=== PATIENT | female | born 1940 | race Caucasian/White ===

== ENCOUNTER → 2016-08-04 | Day surgery (SDC) | payer OTHER ==
[2016-07-28 12:06] VITALS: Ht 160 cm; Wt 56.8 kg
[~2016-08-04] VITALS: Ht 160 cm; Wt 56.8 kg
[~2016-08-04] MED LIST: 500ML BSS 0.3ML EPI 1:1000PF IRRIG ONE; ACET-1256 PO; ACETAMINOPHEN 325 MG TAB PO PRN; AMVISC PLUS 0.8ML SYRINGE INT OCU ONE; ASPEC81 PO; ASPI81TA28 PO; ATEN-174 PO; ATOR-24 PO; ATROPINE SULFATE 0.1 MG/ML 5ML SYR IV PRN; BROM0.07 OPR; BSS FLUSH ONE; CLOP1TAB15 PO; ENDOCOAT 0.85ML SYRINGE INT OCU ONE; EpHEDrine SULFATE INJ 50 MG/ML AMP IV PRN; EpINEphrine INJ 1MG/ML AMP 1 MG/ML AMP ONE; LACTATED RINGER'S 1000ML 500 ML IV SCH; LIDOCAINE 4% OP SOLN DROP CHARGE ONE; LIDOCAINE 4% OP SOLN DROP CHARGE OPR SCH; LIDOCAINE HCL 1% MPF 2 ML VIAL ONE; MIDAZOLAM HCL 1 MG/ML 2ML VIAL ONE; MIX: 4ML BSS 1ML EPI 1:1000 PF TOP ONE; MOXIFLOXACIN OPH SOLN PER DROP CHARGE ONE; POVIDONE-IODINE OP SOLN 30 ML BTL ONE; PRED1SUS3 OPR; PROPARACAINE 0.5% OP SOLN PER DROP CHARGE OPR SCH; TOBRAMYCIN/DEXAMETHASONE OPH OINT PER APPLN CHARGE ONE; TRAM-10 PO
[2016-08-04] MEDS: PHENYLEPHRINE HCL 2.5% OP SOLN PER DROP CHARGE OPR SCH ×3 (09:10→09:20)
[2016-08-04] MEDS: TROPICAMIDE 1% OP SOLN PER DROP CHARGE OPR SCH ×3 (09:11→09:21)
[2016-08-04] MEDS: CYCLOPENTOLATE HCL 1% OP SOLN PER DROP CHARGE OPR SCH ×3 (09:12→09:22)
[2016-08-04] MEDS: MOXIFLOXACIN OPH SOLN PER DROP CHARGE OPR SCH ×3 (09:13→09:23)
--- NOTE | 2016-08-04 09:35 | History & Physical Bridge - [place] ---
H&P Re-Evaluation Bridge Note: I have examined the patient, reviewed the History & Physical and in the interval since the performance of the History & Physical I have noted the following changes of clinical significance: No changes noted
--- NOTE | 2016-08-04 11:03 | [facility] Post Operative Brief Note ---
Immediate Operative Summary Operative Date Aug 04, 2016. Pre-Operative Diagnosis Right eye cataract Post-Operative Diagnosis Same as preop Procedure(s) Performed Right Cataract Phacoemulsification With Intraocular Lens Implant Surgeon Dr. Florez Candy Decorator Surgeon(s) None Findings right cataract Specimens None Complication(s) None Disposition
[2016-08-04 11:05] VITALS: TEMP 36.5
--- NOTE | 2016-08-04 11:05 | [facility] Operative Report ---
Operative Report Date of Service Aug 04, 2016. Operative Report Phaco with monofocal IOL DATE OF OPERATION: 08/04/16 PREOPERATIVE DIAGNOSIS: Senile nuclear cataract, right eye POSTOPERATIVE DIAGNOSIS: Senile nuclear cataract, right eye PROCEDURE PERFORMED: Phacoemulsification with intraocular lens implantation, right eye SURGEON: Dr. Christopher Florez ANESTHESIA: Topical with 1% intracameral lidocaine and monitored anesthesia care COMPLICATIONS: None DESCRIPTION OF PROCEDURE: After positively identifying the patient both verbally and by wristband in the preoperative area, the right eye was marked as the operative eye. The patient was then brought back to the operating room by the anesthesia and nursing staff where they were given a drop of Lidocaine and betadine into the operative eye. They were then sterilely prepped and draped in the standard fashion typical for ophthalmic surgery. Steri-strips were placed along the upper eyelids to keep the lashes back, and a lid speculum was placed into the operative eye. At this point, a documented time out was performed with members of the ophthalmology, nursing, and anesthesia staffs all agreeing upon the correct patient, correct location for surgery, correct procedure, and correct type and power of intraocular lens to be implanted. The microscope was then swung into position. First, a paracentesis wound was made using a sideport blade. Then, in sequence, 1% preservative-free lidocaine followed by Endocoat viscoelastic was injected into the anterior chamber. Next , the main incision was made with a keratome blade in triplanar fashion. A sharp cystotome was introduced into the eye and used to create a tear in the anterior capsule, which was directed into a continuous curvilinear capsulorrhexis using Utrata forceps. Hydrodissection was then performed with BSS on a flat-tip cannula. Next, the phacoemulsification handpiece was introduced into the eye and used to remove the nucleus in a eulqdf-[id number]-efytwtl fashion. This was done without complication and then the irrigation-aspiration handpiece was introduced into the eye and used to remove all remaining cortical and epinuclear material. Amvisc was then injected into the anterior chamber as well as into the capsular bag and using the lens injector system, an MX60 22.5 D lens, serial number [id number], and expiration date 05/2018 was injected into the capsular bag and rotated into the correct position. Next, the irrigation- aspiration handpiece was used to remove all remaining Amvisc. BSS was used to hydrate the main wound, and then BSS was injected into the paracentesis site to reach physiologic pressure and then the main wound was checked and found to be watertight. The patient was given drops of Vigamox and Tobradex ointment into the operative eye, and then the surrounding area was cleaned and dried. A clear plastic shield was placed over the eye and the patient was then sat up and taken from the operating room by the anesthesia staff having tolerated the procedure well and suffering no complications. DISPOSITION: The patient was returned to the recovery room in stable condition. I attest to the content of the Intraoperative Record and any orders documented therein. Any exceptions are noted below.
--- NOTE | 2016-08-04 11:06 | Discharge Instructions-SurgCtr ---
Discharge Instructions Visit Reason for Visit: Cataract Right Eye Discharge Discharge Diagnosis / Problem: right cataract Discharge Goals Goal(s): Decrease discomfort, Improve function Activity Recommendations Activity Limitations: as noted below Anesthesia . Post Anesthesia Instructions: If you have had General Anesthesia or IV Sedation: * Do not drive today. * Resume driving when surgeon permits. * Do not make important decisions or sign legal documents today. * Call surgeon for: 1. Temperature elevations greater than 101 degrees F. 2. Uncontrollable pain. 3. Excessive bleeding. 4. Persistent nausea and vomiting. 5. Medication intolerance (nausea, vomiting or rash). * For nausea and vomiting use only clear liquids such as: tea, soda, bouillon until nausea subsides, then gradually increase diet as tolerated. * If you have any concerns or questions, call your surgeon's office. If physician is unavailable and it is an emergency, call 911 or go to the nearest emergency room. . Instructions / Follow-Up Instructions / Follow-Up ACTIVITY RECOMMENDATIONS: * Light activities. * You may walk outside, read, watch television. * You may notice redness on the white part of the eye and some blurry vision - this is normal. MEDICATIONS: Resume previous medications unless instructed otherwise by your surgeon. Start all eye drops at 1 pm today: * Eye drops (today): Prednisone - one drop in operative eye every 2 hours while awake Ofloxacin - one drop in operative eye every 2 hours while awake Bromfenac - one drop in operative eye daily SPECIAL CARE INSTRUCTIONS: * Tape plastic shield over eye to sleep at night. Call your doctor at with any concerns or problems. FOLLOW UP VISIT: Follow-up with Dr Florez at [place] office as scheduled. Diet Recommendations Home Diet: no limitations Procedures Procedures Performed: Right Cataract Phacoemulsification With Intraocular Lens Implant Pending Studies Studies pending at discharge: no Medical Emergencies . Who to Call and When: Medical Emergencies: If at any time you feel your situation is an emergency, please call 911 immediately. . Non-Emergent Contact Non-Emergency issues call your: Surgeon . . "Provider Documentation" section prepared by Christopher Florez.
--- NOTE | 2016-08-04 11:10 | Anesthesia Progress Nt - [facility] ---
Anesthesia Post Op Note Date & Time Aug 04, 2016 at 11:10 Vital Signs Pain Intensity: 0 Vital Signs Past 12 Hours Date Time Temp Pulse Resp B/P Pulse Ox O2 Delivery O2 Flow Rate FiO2 08/04/16 09:13 36.4 59 18 133/71 93 Room Air Notes Mental Status: alert / awake / arousable, participated in evaluation Pt Amnestic to Procedure: Yes Nausea / Vomiting: adequately controlled Pain: adequately controlled Airway Patency, RR, SpO2: stable & adequate BP & HR: stable & adequate Hydration State: stable & adequate Anesthetic Complications: no major complications apparent
[2016-08-04 11:30] VITALS: BP 142/82; PULSE 66; O2SAT 93
== END | disposition home or self-care (01) ==
LOC: X.SURG 08:26
PROVIDERS: ATTEND Ophthalmology
DX: H25.11 Age-related nuclear cataract, right eye (principal); I51.9 Heart disease, unspecified; E78.00 Pure hypercholesterolemia, unspecified; Z95.0 Presence of cardiac pacemaker

== ENCOUNTER 2016-08-07 12:26 | Emergency (ER) | payer OTHER ==
[~2016-08-07] VITALS: Ht 160 cm; Wt 60.4 kg
[~2016-08-07 12:26] MED LIST changes: -500ML BSS 0.3ML EPI 1:1000PF IRRIG ONE; -ACETAMINOPHEN 325 MG TAB PO PRN; -AMVISC PLUS 0.8ML SYRINGE INT OCU ONE; -ASPEC81 PO; -ATROPINE SULFATE 0.1 MG/ML 5ML SYR IV PRN; -BROM0.07 OPR; -BSS FLUSH ONE; -ENDOCOAT 0.85ML SYRINGE INT OCU ONE; -EpHEDrine SULFATE INJ 50 MG/ML AMP IV PRN; -EpINEphrine INJ 1MG/ML AMP 1 MG/ML AMP ONE; -LACTATED RINGER'S 1000ML 500 ML IV SCH; -LIDOCAINE 4% OP SOLN DROP CHARGE ONE; -LIDOCAINE 4% OP SOLN DROP CHARGE OPR SCH; -LIDOCAINE HCL 1% MPF 2 ML VIAL ONE; -MIDAZOLAM HCL 1 MG/ML 2ML VIAL ONE; -MIX: 4ML BSS 1ML EPI 1:1000 PF TOP ONE; -MOXIFLOXACIN OPH SOLN PER DROP CHARGE ONE; -POVIDONE-IODINE OP SOLN 30 ML BTL ONE; -PRED1SUS3 OPR; -PROPARACAINE 0.5% OP SOLN PER DROP CHARGE OPR SCH; -TOBRAMYCIN/DEXAMETHASONE OPH OINT PER APPLN CHARGE ONE
[2016-08-07 12:32] VITALS: TEMP 36.9; Ht 160 cm; Wt 60.4 kg
[2016-08-07] MEDS ORDERED: SILVER NITR/POTASSIUM NITRATE 10 APPLICATOR PACK ONE (13:18)
--- NOTE | 2016-08-07 13:42 | EMERGENCY ROOM VISIT NOTE ---
ED Visit Note First contact with patient: 13:04 Patient was seen by our PA/IMPROVEMENT AUDITOR. I was involved in the patient's care and did evaluate the patient myself. I was involved in the care throughout the ER stay. The patient presents with epistaxis, the bleeding has been cauterized, the patient is being discharged home.
[2016-08-07 13:45] VITALS: BP 181/77; PULSE 62; O2SAT 92
--- NOTE | 2016-08-09 18:26 | EMERGENCY ROOM VISIT NOTE ---
ED Visit Note First contact with patient: 13:04 CHIEF COMPLAINT: Nosebleed HISTORY OF PRESENT ILLNESS: This 76-year-old white female patient developed sudden onset of a nosebleed about 1 hour ago. The bleeding would not stop with pressure. She became concerned and called her eye surgeon. He recommended she come to the ED. She did call the ambulance and came to the ED. She states the bleeding stopped just prior to arrival at the ED. There was no trauma to the nose and no recent upper respiratory infection. The patient is not on Coumadin but is on Plavix. No difficulty breathing, no cough or sore throat. She states she did have a intermittent headache yesterday, but this has resolved currently. She arrives by BLS. REVIEW OF SYSTEMS: Throat: No sore throat, dysphagia, or hoarseness. Neurological: No headache, new changes in mental status, vertigo, focal weakness, numbness. Cardiac: No chest pain, diaphoresis, dyspnea on exertion, orthopnea, pedal edema, or palpitations. Respiratory: No cough, change in sputum, wheezes, hemoptysis, shortness of breath, or stridor. General: No fever or chills, fatigue, loss of appetite, or significant recent weight gain or loss. PMH: Significant for heart disease, osteoarthritis and elevated cholesterol Previous surgeries: Eye surgery, bilateral leg vein stripping, heart bypass surgery Family history: Significant for heart disease. Parents are . SOCIAL HISTORY: Patient lives at home alone. No tobacco use, no EtOH use. Retired. Current medications: Reviewed and filed in patient's chart Allergies: Amoxil, cefadroxil, ranitidine, statins PHYSICAL EXAM: Vital Signs: Reviewed Nurse's notes. Afebrile. General appearance: The patient is sitting upright in no acute distress. She is continuously wiping her nose. The patient is alert, oriented, coherent, and cooperative. There is no tachypnea or dyspnea. Skin: Warm and dry with fair turgor. No rashes or lesions. No ecchymosis or erythema. The patient is not diaphoretic. No abrasions. HEENT: Normocephalic atraumatic. Eyes PERRLA, EOMI. No conjunctiva or scleral injection. Nares patent bilaterally without turbinate enlargement. No significant drainage. Oropharynx without erythema or exudate. Uvula midline, oral mucosa moist. No lesions present. Dentures are noted. Exam of the nostrils reveals punctate bleeding on the right septum. No bleeding on the left septum. Heart: Heart RRR. No MGR. Peripheral pulses are 2+. Lungs: Lungs are clear to auscultation. No crackles rhonchi or wheezing. Good air movement. The patient is able to take a deep breath. EMERGENCY DEPARTMENT COURSE: Patient was educated regarding today's findings. Conservative care measures were discussed. Option of watchful waiting, Afrin nasal spray, and silver nitrate cautery were discussed at length. She elected to proceed with cautery. A silver nitrate stick was used to cauterize the single vessel that was bleeding. This was successful in stopping. Patient tolerated this well. Nares was coated in triple antibiotic ointment. DIAGNOSIS: Epistaxis right nares DISCHARGE INSTRUCTIONS & TREATMENT: Patient was discharged back to home. She wIll continue applying Triple Antibiotic ointment to the nose 2 times a day for the next several days. She was shown how to do this. Firm pressure on the nose for 15 minutes if bleeding recurs. If you are unable to get it stopped after that, return to the emergency department for further exam and treatment. Blow the nose very gently if at all over the next 2 days. Don't put any objects into the nose. Patient was seen in conjunction with Dr. Mckeon, who also evaluated the patient and concurred with today's diagnosis and treatment plan. Problem List Medical Problems: (1) Hypertension Status: Chronic Surgical Problems: (1) H/O heart bypass surgery Status: Resolved Current/Historical Medications Scheduled Atenolol (Tenormin), 50 MG PO QAM Atorvastatin (Lipitor), 40 MG PO QAM Clopidogrel (Plavix), 75 MG PO QAM Scheduled PRN Acetaminophen (Tylenol), 500 MG PO Q6 PRN for Pain Tramadol (Ultram), 50-100 MG PO Q6 PRN for Pain Allergies Coded Allergies: Amoxicillin (Verified Allergy, Unknown, SEVERE DIARRHEA, 08/07/16) Ranitidine (Verified Allergy, Unknown, rash, 08/07/16) Cefadroxil (Verified Adverse Reaction, Intermediate, Nausea, 08/07/16) Statins (Verified Adverse Reaction, Intermediate, DIARRHEA, 08/07/16) WHEN HIGH DOSES USED CAN TOLERATE LOW DOSES Vital Signs Date Time Temp Pulse Resp B/P Pulse Ox O2 Delivery O2 Flow Rate FiO2 08/07/16 13:45 62 18 181/77 92 08/07/16 12:32 36.9 60 18 147/46 93 Room Air Departure Information Impression Primary Impression: Acute anterior epistaxis Dispostion Home / Self-Care Condition GOOD Forms WORK / SCHOOL INSTRUCTIONS, HOME CARE DOCUMENTATION FORM, TYLENOL USE, IMPORTANT VISIT INFORMATION Patient Instructions Nosebleeds - [facility], [facility] Additional Instructions Coat the inside of the right nostril with antibiotic ointment 2 times a day for the next 3 days Avoid blowing your nose Avoid sticking anything into the nostril Follow-up with your PCP as needed Tylenol every 6 hours as needed for discomfort Return to the ED for any other concerns Apply a nasal clip for 10 minutes if any bleeding should recur
[2016-08-12] MEDS ORDERED: BROM0.07 OPR (10:01)
[2016-08-12] MEDS ORDERED: PRED1SUS3 OPR (10:01)
[2016-10-28] MEDS ORDERED: ASPEC81 PO (09:12)
== END 2016-08-07 13:46 | disposition home or self-care (01) ==
LOC: EDBD 12:26 → C.EDB 12:28
DX: R04.0 Epistaxis (principal); I10 Essential (primary) hypertension; E78.00 Pure hypercholesterolemia, unspecified; Z79.01 Long term (current) use of anticoagulants; M19.90 Unspecified osteoarthritis, unspecified site; Z95.1 Presence of aortocoronary bypass graft; Z79.899 Other long term (current) drug therapy

== ENCOUNTER → 2016-08-18 | Day surgery (SDC) | payer OTHER ==
[2016-08-12 10:01] VITALS: Ht 160 cm; Wt 56.8 kg
[~2016-08-18] VITALS: Ht 160 cm; Wt 56.8 kg
[~2016-08-18] MED LIST changes: +500ML BSS 0.3ML EPI 1:1000PF IRRIG ONE; +ACETAMINOPHEN 325 MG TAB PO PRN; +AMVISC PLUS 0.8ML SYRINGE INT OCU ONE; +ASPEC81 PO; -ASPI81TA28 PO; +ATROPINE SULFATE 0.1 MG/ML 5ML SYR IV PRN; +BROM0.07 OPR; +BSS FLUSH ONE; +ENDOCOAT 0.85ML SYRINGE INT OCU ONE; +EpHEDrine SULFATE INJ 50 MG/ML AMP IV PRN; +EpINEphrine INJ 1MG/ML AMP 1 MG/ML AMP ONE; +LACTATED RINGER'S 1000ML 500 ML IV SCH; +LIDOCAINE 4% OP SOLN DROP CHARGE ONE; +LIDOCAINE 4% OP SOLN DROP CHARGE OPL SCH; +LIDOCAINE HCL 1% MPF 2 ML VIAL ONE; +MIDAZOLAM HCL 1 MG/ML 2ML VIAL ONE; +MIX: 4ML BSS 1ML EPI 1:1000 PF TOP ONE; +MOXIFLOXACIN OPH SOLN PER DROP CHARGE ONE; +POVIDONE-IODINE OP SOLN 30 ML BTL ONE; +PRED1SUS3 OPR; +PROPARACAINE 0.5% OP SOLN PER DROP CHARGE OPL SCH; +TOBRAMYCIN/DEXAMETHASONE OPH OINT PER APPLN CHARGE ONE
[2016-08-18] MEDS: PHENYLEPHRINE HCL 2.5% OP SOLN PER DROP CHARGE OPL SCH ×3 (10:08→10:18)
[2016-08-18] MEDS: TROPICAMIDE 1% OP SOLN PER DROP CHARGE OPL SCH ×3 (10:09→10:19)
[2016-08-18] MEDS: CYCLOPENTOLATE HCL 1% OP SOLN PER DROP CHARGE OPL SCH ×3 (10:10→10:20)
[2016-08-18] MEDS: MOXIFLOXACIN OPH SOLN PER DROP CHARGE OPL SCH ×3 (10:11→10:21)
--- NOTE | 2016-08-18 11:54 | [facility] Post Operative Brief Note ---
Immediate Operative Summary Operative Date Aug 18, 2016. Pre-Operative Diagnosis Cataract Left Eye Post-Operative Diagnosis Same Procedure(s) Performed Left Cataract Phacoemulsification With Intraocular Lens Implant Surgeon Dr. Florez Substation Technician Surgeon(s) None Estimated Blood Loss 0 Findings left cataract Specimens None Complication(s) None Disposition
--- NOTE | 2016-08-18 11:55 | [facility] Operative Report ---
Operative Report Date of Service Aug 18, 2016. Operative Report Phaco with monofocal IOL DATE OF OPERATION: 08/18/16 PREOPERATIVE DIAGNOSIS: Senile nuclear cataract, left eye POSTOPERATIVE DIAGNOSIS: Senile nuclear cataract, left eye PROCEDURE PERFORMED: Phacoemulsification with intraocular lens implantation, left eye SURGEON: Dr. Christopher Florez ANESTHESIA: Topical with 1% intracameral lidocaine and monitored anesthesia care COMPLICATIONS: None DESCRIPTION OF PROCEDURE: After positively identifying the patient both verbally and by wristband in the preoperative area, the left eye was marked as the operative eye. The patient was then brought back to the operating room by the anesthesia and nursing staff where they were given a drop of Lidocaine and betadine into the operative eye. They were then sterilely prepped and draped in the standard fashion typical for ophthalmic surgery. Steri-strips were placed along the upper eyelids to keep the lashes back, and a lid speculum was placed into the operative eye. At this point, a documented time out was performed with members of the ophthalmology, nursing, and anesthesia staffs all agreeing upon the correct patient, correct location for surgery, correct procedure, and correct type and power of intraocular lens to be implanted. The microscope was then swung into position. First, a paracentesis wound was made using a sideport blade. Then, in sequence, 1% preservative-free lidocaine followed by Endocoat viscoelastic was injected into the anterior chamber. Next , the main incision was made with a keratome blade in triplanar fashion. A sharp cystotome was introduced into the eye and used to create a tear in the anterior capsule, which was directed into a continuous curvilinear capsulorrhexis using Utrata forceps. Hydrodissection was then performed with BSS on a flat-tip cannula. Next, the phacoemulsification handpiece was introduced into the eye and used to remove the nucleus in a [id number]-ikwkuxb fashion. This was done without complication and then the irrigation-aspiration handpiece was introduced into the eye and used to remove all remaining cortical and epinuclear material. Amvisc was then injected into the anterior chamber as well as into the capsular bag and using the lens injector system, an MX60 22.5 D lens, serial number [id number], and expiration date 02/2019 was injected into the capsular bag and rotated into the correct position. Next, the irrigation- aspiration handpiece was used to remove all remaining Amvisc. BSS was used to hydrate the main wound, and then BSS was injected into the paracentesis site to reach physiologic pressure and then the main wound was checked and found to be watertight. The patient was given drops of Vigamox and Tobradex ointment into the operative eye, and then the surrounding area was cleaned and dried. A clear plastic shield was placed over the eye and the patient was then sat up and taken from the operating room by the anesthesia staff having tolerated the procedure well and suffering no complications. DISPOSITION: The patient was returned to the recovery room in stable condition. I attest to the content of the Intraoperative Record and any orders documented therein. Any exceptions are noted below.
[2016-08-18 11:56] VITALS: TEMP 36.4
--- NOTE | 2016-08-18 11:56 | Discharge Instructions-SurgCtr ---
Discharge Instructions Date of Service Aug 18, 2016. Visit Reason for Visit: Cataract Left Eye Discharge Discharge Diagnosis / Problem: left cataract Discharge Goals Goal(s): Decrease discomfort, Improve function Activity Recommendations Activity Limitations: as noted below Anesthesia . Post Anesthesia Instructions: If you have had General Anesthesia or IV Sedation: * Do not drive today. * Resume driving when surgeon permits. * Do not make important decisions or sign legal documents today. * Call surgeon for: 1. Temperature elevations greater than 101 degrees F. 2. Uncontrollable pain. 3. Excessive bleeding. 4. Persistent nausea and vomiting. 5. Medication intolerance (nausea, vomiting or rash). * For nausea and vomiting use only clear liquids such as: tea, soda, bouillon until nausea subsides, then gradually increase diet as tolerated. * If you have any concerns or questions, call your surgeon's office. If physician is unavailable and it is an emergency, call 911 or go to the nearest emergency room. . Instructions / Follow-Up Instructions / Follow-Up ACTIVITY RECOMMENDATIONS: * Light activities. * You may walk outside, read, watch television. * You may notice redness on the white part of the eye and some blurry vision - this is normal. MEDICATIONS: Resume previous medications unless instructed otherwise by your surgeon. Start all eye drops at 2 pm today: * Eye drops (today): Prednisone - one drop in operative eye every 2 hours while awake Ofloxacin - one drop in operative eye every 2 hours while awake Bromfenac - one drop in operative eye daily SPECIAL CARE INSTRUCTIONS: * Tape plastic shield over eye to sleep at night. Call your doctor at with any concerns or problems. FOLLOW UP VISIT: Follow-up with Dr Florez at [facility] as scheduled. Diet Recommendations Home Diet: no limitations Procedures Procedures Performed: Left Cataract Phacoemulsification With Intraocular Lens Implant Pending Studies Studies pending at discharge: no Medical Emergencies . Who to Call and When: Medical Emergencies: If at any time you feel your situation is an emergency, please call 911 immediately. . Non-Emergent Contact Non-Emergency issues call your: Surgeon . . "Provider Documentation" section prepared by Christopher Florez.
[2016-08-18 12:18] VITALS: BP 131/70; PULSE 60; O2SAT 94
--- NOTE | 2016-08-18 12:27 | Anesthesia Progress Nt - [facility] ---
Anesthesia Post Op Note Date & Time Aug 18, 2016 at 12:27 Vital Signs Pain Intensity: 0 Vital Signs Past 12 Hours Date Time Temp Pulse Resp B/P Pulse Ox O2 Delivery O2 Flow Rate FiO2 08/18/16 12:18 60 16 131/70 94 Room Air 08/18/16 11:56 36.4 60 12 132/72 95 Room Air 08/18/16 09:56 36.4 59 18 161/78 94 Room Air Notes Mental Status: alert / awake / arousable, participated in evaluation Pt Amnestic to Procedure: Yes Nausea / Vomiting: adequately controlled Pain: adequately controlled Airway Patency, RR, SpO2: stable & adequate BP & HR: stable & adequate Hydration State: stable & adequate Anesthetic Complications: no major complications apparent
== END | disposition home or self-care (01) ==
LOC: X.SURG 09:17
PROVIDERS: ATTEND Ophthalmology
DX: H25.12 Age-related nuclear cataract, left eye (principal); E78.00 Pure hypercholesterolemia, unspecified; I10 Essential (primary) hypertension; E03.9 Hypothyroidism, unspecified; E11.9 Type 2 diabetes mellitus without complications; Z95.0 Presence of cardiac pacemaker

== ENCOUNTER 2016-10-27 07:54 | Observation (INO) | payer OTHER ==
[~2016-10-27] VITALS: Ht 160 cm; Wt 58.0 kg
[2016-10-27] VITALS (15 sets, daily range): BP systolic 95–160; BP diastolic 55–84; PULSE 59–63; TEMP 36.2–37; O2SAT 91–94; Ht 160 cm; Wt 58.0 kg
[~2016-10-27 07:54] MED LIST changes: -500ML BSS 0.3ML EPI 1:1000PF IRRIG ONE; -ACETAMINOPHEN 325 MG TAB PO PRN; -AMVISC PLUS 0.8ML SYRINGE INT OCU ONE; -ASPEC81 PO; -ATROPINE SULFATE 0.1 MG/ML 5ML SYR IV PRN; -BSS FLUSH ONE; -ENDOCOAT 0.85ML SYRINGE INT OCU ONE; -EpHEDrine SULFATE INJ 50 MG/ML AMP IV PRN; -EpINEphrine INJ 1MG/ML AMP 1 MG/ML AMP ONE; -LACTATED RINGER'S 1000ML 500 ML IV SCH; -LIDOCAINE 4% OP SOLN DROP CHARGE ONE; -LIDOCAINE 4% OP SOLN DROP CHARGE OPL SCH; -LIDOCAINE HCL 1% MPF 2 ML VIAL ONE; -MIDAZOLAM HCL 1 MG/ML 2ML VIAL ONE; -MIX: 4ML BSS 1ML EPI 1:1000 PF TOP ONE; -MOXIFLOXACIN OPH SOLN PER DROP CHARGE ONE; -POVIDONE-IODINE OP SOLN 30 ML BTL ONE; -PROPARACAINE 0.5% OP SOLN PER DROP CHARGE OPL SCH; +SODIUM CHLORIDE 0.9% 1000ML IV SCH; -TOBRAMYCIN/DEXAMETHASONE OPH OINT PER APPLN CHARGE ONE
--- NOTE | 2016-10-27 08:21 | Procedure Note ---
Pre-Mod Sedation Assessment General Date of Moderate Sedation: October 27, 2016. Review Cardiovascular: regular rate, rhythm, no edema Abdomen: normal bowel sounds, non tender Lungs: chest non-tender, lungs clear Airway Class: II Pre-Sedation Airway Assessment Oral Cavity: Dental Abnormalities Able to Visualize Vocal Cords: No Short Thick Neck: No Hx of Sleep Apnea: No Smoking Status: Former Smoker Mallampati Classification: Class II ASA Classification: Class III Procedure Planning Contraindications-for Mod Sed: None Yes Notes The planned sedation has been discussed with the patient and consent obtained. I have identified the patient, determined the appropriateness of sedation and have assessed the patient immediately prior to the procedure. All medicine(s) and interventions are by my order.
[2016-10-27] MEDS ORDERED: FENTANYL CITRATE INJ 50 MCG/1 ML 2 ML VIAL ONE (10:22)
[2016-10-27] MEDS ORDERED: MIDAZOLAM HCL 1 MG/ML 2ML VIAL ONE ×2 (10:23→12:07)
[2016-10-27] MEDS ORDERED: HEPARIN SOD (PORCINE) 1000 UNIT/ML 10 ML VIAL ONE (10:30)
[2016-10-27] MEDS ORDERED: NITROGLYCERIN/D5W 100MCG/ML 20ML SYR ONE (10:34)
--- NOTE | 2016-10-27 10:49 | History and Physical ---
History & Physical Date October 27, 2016. Chief Complaint PAD, Claudication History of Present Illness Mrs. Lagos is a very pleasant 76-year-old woman with a history of coronary artery disease status post prior CABG in 1984, with redo in 2006 (most recent vein grafts to OM, LAD, RCA), sick sinus syndrome status post permanent pacer, hypertension, dyslipidemia and peripheral artery disease status post prior subclavian artery stenting and most recently endovascular intervention to her left and right SFA for intermittent claudication by Dr. Blood last year who returns today due to progressive, recurrent claudication. Patient most recently underwent intervention in October (100% occluded proximal SFA treated with and November of last year. Following intervention she had significant improvement in her exercise tolerance and resolution of her claudication symptoms. However, in April, May started having recurrence of pain initially in her left leg. Seen by Dr. Blood in May and due to recurrent symptoms repeat peripheral angiogram was recommended. Procedure was not able to be completed as patient was dealing with multiple other medical issues including a staph infection, recurrent issues with colitis and most recently bilateral cataract surgery. Since that time she states that her claudication symptoms have gradually progressed. She states that often will attempt to walk [address] stop from her apartment and she has to stop twice due to severe limiting pain in her calves bilaterally. Pain is now severe on both sides. Denies any significant lower extremity wounds or ulcerations. Denies any pain at rest. Recent arterial duplex shows recurrent mid to distal SFA disease. Past Medical/Surgical History Medical Problems: (1) Hypertension (2) PAD (peripheral artery disease) (3) PAD (peripheral artery disease) Surgical Problems: (1) H/O heart bypass surgery Additional History Hepatic Disease: No Endocrine Disorder: Yes Kidney Disease: No Hypertension: Yes Heart Disease: Yes Bleeding Tendencies: No Allergies Coded Allergies: Ranitidine (Verified Allergy, Intermediate, rash, 10/27/16) Amoxicillin (Verified Adverse Reaction, Intermediate, SEVERE DIARRHEA, ) Cefadroxil (Verified Adverse Reaction, Mild, Nausea, 10/27/16) Statins (Verified Adverse Reaction, Mild, DIARRHEA, 10/27/16) WHEN HIGH DOSES USED CAN TOLERATE LOW DOSES Home Medications Scheduled Atenolol (Tenormin), 50 MG PO QAM Atorvastatin (Lipitor), 40 MG PO QAM Clopidogrel (Plavix), 75 MG PO QAM Scheduled PRN Acetaminophen (Tylenol), 500 MG PO Q6 PRN for Pain Tramadol (Ultram), 50-100 MG PO Q6 PRN for Pain Physical Examination Skin: warm/dry Neck: supple Respiratory/Chest: lungs clear, normal breath sounds Cardiovascular: regular rate, rhythm, no edema Abdomen / GI: normal bowel sounds, non tender Extremities: normal inspection, + pertinent finding (2+ femoral pulses) Neurologic/Psych: no motor/sensory deficits ASA Classification: ASA Class II Plan of Treatment Proceed with planned bilateral lower extremity angiogram.
[2016-10-27] MEDS ORDERED: MIDAZOLAM HCL 1 MG/ML 2ML VIAL IV ONE ×3 (11:18→12:09)
[2016-10-27] MEDS ORDERED: FENTANYL CITRATE INJ 50 MCG/1 ML 2 ML VIAL IV ONE ×3 (11:19→12:06)
[2016-10-27] MEDS ORDERED: LIDOCAINE HCL 1% 20 ML VIAL SQ ONE (11:28)
[2016-10-27] MEDS ORDERED: HEPARIN SOD (PORCINE) 1000 UNIT/ML 10 ML VIAL IV ONE (12:31)
[2016-10-27] MEDS ORDERED: IODIXANOL (VISIPAQUE) 270 MG/ML 150ML XX ONE (13:03)
[2016-10-27] MEDS ORDERED: CLOPIDOGREL BISULFATE 300 MG TAB PO STA (13:15)
[2016-10-27] MEDS ORDERED: SODIUM CHLORIDE 0.9% 1000ML 1,000 ML IV SCH (13:15)
[2016-10-27] MEDS ORDERED: ONDANSETRON INJ 2 MG/ML 2 ML VIAL IV PRN (13:15)
[2016-10-27] MEDS ORDERED: TRAMADOL HCL 50 MG TAB PO PRN (13:15)
--- NOTE | 2016-10-27 13:21 | Procedure Note ---
Post-Mod Sedation Assessment General Date of Moderate Sedation October 27, 2016. Vital Signs: Vital Signs Past 12 Hours Date Time Temp Pulse Resp B/P Pulse Ox O2 Delivery O2 Flow Rate FiO2 10/27/16 10:42 36.6 60 20 128/68 94 Room Air 10/27/16 08:07 36.6 60 20 128/68 94 Room Air Review - Discharge Criteria Vital Signs Stable: Yes Alert/Oriented/Conversant: Yes Returned to Baseline Mental St: Yes Nausea Absent/Minimal: Yes Pain/Discomfort/Absent/Minimal: Yes Normal/Baseline Respirations: Yes Active Bleeding?: No Pt Received D/C Instructions: N/A Prescriptions Given: None Specific Proced. D/C Criteria Distal Pulses Present (Cardiac: Yes Groin site assessed-Card Cath: N/A Voided Prior To Discharge: N/A Discharged Patients Adult Escort/Transportation: Yes
--- NOTE | 2016-10-27 13:54 | [facility] Operative Report ---
Operative Report Operative Date October 27, 2016. Pre-Operative Diagnosis PAD, Claudication Post-Operative Diagnosis PAD Procedure(s) Performed Bilateral Lower extremity Angiogram Selective left SFA/below the knee angiogram CODING COMPLIANCE MANAGER anterior tibial artery CODING COMPLIANCE MANAGER with drug-eluting (Lutonix balloon) to distal SFA Mynx right STUDENT SERVICES COUNSELOR closure Surgeon Dr. Mac Paediatric Surgeon Surgeon(s) None Estimated Blood Loss 30 Findings Aorta - mild infrarenal aneurysm (3.1 cm) above bifurcation Left lower extremity: Common iliac - Mild to moderate disease (on sheath pull back gradient ~20 mmHg) External iliac - Minimal disease Internal iliac - Minimal disease STUDENT SERVICES COUNSELOR - Patent Profunda - Minimal disease SFA - Mild diffuse disease proximally Distal SFA - Sequential, mildly calcified focal 70% lesions Popliteal - minimal disease TPT - minimal disease AT - mildly calcified, sequential 90%, 80% lesions in mid segment PT - occluded proximally with no real reconstitution. Peroneal - mild diffuse disease Right lower extremity: Common iliac - Minimal disease External iliac - Heavily calcified, mild-moderate disease (no significant gradient on pull back) Internal iliac - Minimal disease STUDENT SERVICES COUNSELOR - Minimal disease, high bifurcation, OK for closure device placement Profunda - Minimal disease SFA - Mild diffuse atherosclerosis (up to 30-40% stenosis) Popliteal - mild disease TPT - minimal disease AT - moderate diffuse disease PT - occluded in mid segment with no real reconstitution Peroneal - minimal disease US guided access right STUDENT SERVICES COUNSELOR. rim catheter, glideadvantage wire 45 cm 6Fr destination sheath to proximal SFA glideadvantage to popliteal artery CODING COMPLIANCE MANAGER of distal SFA with 4.0 x 100 balloon. Wire exchanged for 0.14 command wire placed into distal AT CODING COMPLIANCE MANAGER of AT with 2.5 x 160 balloon CODING COMPLIANCE MANAGER of distal SFA with 5 x 150 Lutonix drug-eluting balloon with good angiographic result Post dilation noted to have filling defect suspected to be clot distal to site of inflation. Re-bolused with heparin, aspiration thrombectomy performed with 100 cm glidecatheter with removal of clot fragments. Final angiogram confirmed patency with no distal embolization and 2 vessel distal runoff to the foot. Mynx closure device with successful hemostasis. Summary: 1. Moderate to severe sequential focal lesions involving left distal SFA 2. Two vessel distal left lower extremity runoff with previously occluded CODING COMPLIANCE MANAGER and severe AT disease 3. Mild to moderate ostial left common iliac disease with borderline gradient on catheter pullback 4. Mild right lower extremity inflow/SFA disease. 2 vessel distal runoff. 5. Small infrarenal AAA (3.1 cm) 6. Successful CODING COMPLIANCE MANAGER of left distal SFA with Lutonix drug-eluting balloon 7. Successful CODING COMPLIANCE MANAGER of left mid SALVADOR 8. Successful aspiration thrombectomy of distal SFA thrombus post intervention Recommendations: Will admit for overnight observation with co-morbidities and SFA thrombus Reload with plavix 300 mg on floor Continue DAPT, statin and beta-epi No evidence of significant right lower extremity arterial disease to be causing presenting pain. If continued left lower extremity claudication will consider further evaluation/ intervention of left common iliac Routine surveillance for infrarenal AAA Specimens None Drains None Anesthesia Moderate Complication(s) None Disposition PCU I attest to the content of the Intraoperative Record and any orders documented therein. Any exceptions are noted below.
[2016-10-27] MEDS ORDERED: IV FLUIDS COMPLETED PRN (16:45)
[2016-10-27] MEDS ORDERED: CLOPIDOGREL BISULFATE 300 MG TAB PO ONE (18:34)
[2016-10-27] MEDS: ACETAMINOPHEN 325 MG TAB PO PRN (20:52)
[2016-10-28 03:30] VITALS: BP 100/50; PULSE 61; TEMP 36.9; O2SAT 92
[2016-10-28 06:25] LABS: HEMATOCRIT 38.8 % (37-47); MEAN CELL VOLUME 95.8 fL (80-100); MEAN CORPUSCULAR HEMOGLOBIN 30.6 pg (25-34); MEAN PLATELET VOLUME 9.8 fL (7.4-10.4); PLATELET COUNT 135 K/uL (130-400); RED BLOOD COUNT 4.05 M/uL (4.2-5.4); WHITE BLOOD COUNT 5.13 K/uL (4.8-10.8)
[2016-10-28 06:57] LABS: BUN/CREATININE RATIO 16.8 (10-20); CALCIUM 8.6 mg/dl (8.5-10.1); CREATININE 0.76 mg/dl (0.60-1.20); POTASSIUM 4.3 mmol/L (3.5-5.1)
[2016-10-28 07:10] VITALS: BP 126/57; PULSE 60; TEMP 36.5; O2SAT 94
[2016-10-28 08:00] VITALS: O2SAT 94
[2016-10-28] MEDS ORDERED: CLOPIDOGREL BISULFATE 75 MG TAB PO SCH (09:00)
[2016-10-28] MEDS ORDERED: ATORVASTATIN 40 MG TAB PO SCH (09:00)
[2016-10-28] MEDS ORDERED: ASPIRIN 81 MG ECTAB PO SCH (09:00)
[2016-10-28] MEDS: ACETAMINOPHEN 325 MG TAB PO PRN (09:03)
[2016-10-28] MEDS ORDERED: ASPEC81 PO (09:12)
--- NOTE | 2016-10-28 09:14 | Discharge Instructions ---
Discharge Instructions Procedure Procedure Date: October 28, 2016. Reason for Visit: Peripheral Vascular Disease. Discharge Discharge Date: October 28, 2016. Discharge Diagnosis: Peripheral artery disease Last Recorded Wt (Kilograms): 58.000 Anesthesia Post Anesthesia Instructions: If you have had General Anesthesia or IV Sedation: * Do not drive today. * Resume driving when surgeon permits. * Do not make important decisions or sign legal documents today. * Call surgeon for: 1. Temperature elevations greater than 101 degrees F. 2. Uncontrollable pain. 3. Excessive bleeding. 4. Persistent nausea and vomiting. 5. Medication intolerance (nausea, vomiting or rash). * For nausea and vomiting use only clear liquids such as: tea, soda, bouillon until nausea subsides, then gradually increase diet as tolerated. * If you have any concerns or questions, call your surgeon's office. If physician is unavailable and it is an emergency, call 911 or go to the nearest emergency room. Instructions Activity Recommendations: limitations as noted below Recommended Home Diet: resume previous diet Allergies: Coded Allergies: Ranitidine (Verified Allergy, Intermediate, rash, 10/27/16) Amoxicillin (Verified Adverse Reaction, Intermediate, SEVERE DIARRHEA, ) Cefadroxil (Verified Adverse Reaction, Mild, Nausea, 10/27/16) Statins (Verified Adverse Reaction, Mild, DIARRHEA, 10/27/16) WHEN HIGH DOSES USED CAN TOLERATE LOW DOSES Follow Up Additional Instructions: ACTIVITY RECOMMENDATIONS: It is common to feel weak and fatigue for a few days. * Do not drive or operate any motorized equipment for the next three days. * Limit stair usage (2 or 3 trips a day only) for the next three days. * Do not lift anything heavier than 10 pounds for the next three days. * Do not engage in vigorous exercise or any sports for the next five days. * You may shower the day after your procedure, but do not immerse the area for three days. Cleanse the site gently with soap and water. SPECIAL CARE INSTRUCTIONS: * You may replace the pressure dressing or band-aid the morning after the procedure. * After your procedure, it is normal to have a small bruise or small lump at the site. Examine your site daily for any change in the bruise or lump, redness, swelling, drainage or numbness. Notify your doctor if any change. BLEEDING: * If there is a small amount of bleeding at the site, lie down and apply firm pressure with a clean cloth for ten minutes. When the bleeding stops, lie quietly keeping the procedure limb straight for six hours. Notify your doctor as soon as possible. * If the bleeding does not stop after ten minutes or if there is a large amount of bleeding or spurting, call 911 immediately. Continue to lie down and hold firm pressure until help arrives. SKIN IRRITATION: * You may experience some redness and/or swelling in the area where radiation was administered. If any skin irritation occurs, please contact your family physician. FOLLOW UP VISIT: Keep any scheduled doctor appointments. Follow-up with: Dr. Mac in 1 month. Yaneth Carranzay Recommendations: Call your doctor if: * Temperature above 101 degrees * Pain not relieved by pain medicine ordered * There is increased drainage or redness from any incision * You have any unanswered questions or concerns. Your Doctors Instructions noted above were prepared by provider Juan Mac. Patient Signature Section: Patient Instructions Signature Page Chichi Lagos Patient (or Guardian) Signature/Date: I have read and understand the instructions given to me by my caregivers. Caregiver/RN/Doctor Signature/Date: The above-named patient and/or guardian has received patient instructions on this date. + Original Patient Signature Page (only) stays with chart. Please make copy for patient.
[2016-10-28 09:23] VITALS: BP 126/57; PULSE 60; TEMP 36.5; O2SAT 94
--- NOTE | 2016-10-28 23:40 | DISCHARGE SUMMARY ---
DISCHARGE DIAGNOSES: Peripheral artery disease, claudication, endovascular intervention to assess anterior tibial artery. PROCEDURES: 1. Bilateral angiogram. 2. Selective angiogram of left lower extremity. 3. BUSINESS AND FINANCIAL COUNSEL of left SFA with drug-eluting balloon. 4. BUSINESS AND FINANCIAL COUNSEL of left SALVADOR. 5. Thrombus aspiration of distal left SFA. HISTORY OF PRESENT ILLNESS: Mrs. Lagos is a 76-year-old woman with a history of coronary artery disease, status post CABG in 1984 and redo in 2006, sick sinus syndrome, status post permanent pacemaker, hypertension, dyslipidemia, and known peripheral artery disease, status post prior endovascular interventions to her left and right SFAs for intermittent claudication by Dr. Blood last year. She was seen in the office recently and had been noticing worsening claudication symptoms similar to what she had experienced prior to her intervention and repeat arterial duplex showed recurrent mid to distal left SFA disease. Decision was made to proceed with endovascular intervention. HOSPITAL COURSE: The patient was taken to the OR for bilateral angiogram. This study showed sequential, mildly calcified focal 70% lesions in her left distal SFA as well as mildly calcified sequential 90 and 80% lesions in the mid segment of her anterior tibial artery. Right lower extremity was without significant disease. She underwent BUSINESS AND FINANCIAL COUNSEL of her distal SFA with a 5 x 150 Lutonix drug-eluting balloon with good angiographic result. She also underwent BUSINESS AND FINANCIAL COUNSEL of her anterior tibial artery with a 2.5 mm balloon. Post-angioplasty of SFA, there was noted to be a small filling defect, suspect clot in the distal SFA. Aspiration thrombectomy was performed with removal of clot. Patient was reloaded with Plavix and decision was made to monitor overnight. Overnight, she did well. She was seen up walking in the halls with improved pain in her lower extremity. She had good distal pulses and adequate perfusion on exam in the morning. No event on telemetry. She was feeling well and ready for discharge. She was discharged to home and will follow up with cardiology in 1 month for repeat ABIs. DISCHARGE MEDICATIONS: Include: 1. Aspirin 81. 2. Tylenol 500 mg q. 6 p.r.n. 3. Atenolol 50 mg q.a.m. 4. Atorvastatin 40 mg q.a.m. 5. Plavix 75 mg daily. 6. Tramadol 50 mg p.r.n. MTDD
== END 2016-10-28 09:54 | disposition home or self-care (01) ==
LOC: C.ACU 07:54 → C.2T 13:20
PROVIDERS: ADMIT Internal Medicine Interventional Cardiology; ATTEND Internal Medicine Interventional Cardiology
DX: I73.9 Peripheral vascular disease, unspecified (principal); I70.219 Atherosclerosis of native arteries of extremities with intermittent claudication, unspecified extremity; I25.10 Atherosclerotic heart disease of native coronary artery without angina pectoris; I10 Essential (primary) hypertension; E78.00 Pure hypercholesterolemia, unspecified; Z98.890 Other specified postprocedural states; Z98.41 Cataract extraction status, right eye; Z98.42 Cataract extraction status, left eye; Z88.1 Allergy status to other antibiotic agents; Z95.0 Presence of cardiac pacemaker; Z86.718 Personal history of other venous thrombosis and embolism; Z82.49 Family history of ischemic heart disease and other diseases of the circulatory system; Z82.3 Family history of stroke; Z87.891 Personal history of nicotine dependence; Z79.82 Long term (current) use of aspirin

== ENCOUNTER 2017-06-01 17:41 | Emergency (ER) | payer OTHER ==
[~2017-06-01] VITALS: Ht 160 cm; Wt 62.0 kg
[~2017-06-01 17:41] MED LIST changes: +ASPEC81 PO; -BROM0.07 OPR; -PRED1SUS3 OPR; -SODIUM CHLORIDE 0.9% 1000ML IV SCH
[2017-06-01] MEDS ORDERED: LEVALBUTEROL 1.25MG/3ML NEB INH STA (17:50)
[2017-06-01 17:53] VITALS: TEMP 37.3; Ht 160 cm; Wt 62.0 kg
--- NOTE | 2017-06-01 18:04 | EMERGENCY ROOM VISIT NOTE ---
History Report prepared by Kayode: Jeny Alexis Under the Supervision of: Dr. Cassius Bai M.D. First contact with patient: 17:44 Stated Complaint: ILLNESS, ANXIETY, CHEST DISCOMFORT History of Present Illness The patient is a 77 year old female who presents to the Emergency Room with complaints of persistent chest pain starting earlier today. She presents to the ED by EMS. The chest pain is all throughout her chest. It started while she was coughing. It worsens with deep breaths. She has been feeling sick with flu symptoms for the past week. She has had a cough producing a thick yellow mucous , chills, nausea, and loss of appetite. She has lost her voice. She denies any SOB, vomiting, or abdominal pain. She has a history of CABG. She is on Plavix. She has stents in her leg and subclavian. She does not have any stents in her heart. She quit smoking 10 years ago. Source of History: patient, EMS Onset: earlier today Position: chest Quality: other (pain) Timing: other (persistent) Modifying Factors (Worsening): breathing Associated Symptoms: + chills, + cough, + nausea, No SOB, No vomiting, No abdominal pain Review of Systems See HPI for pertinent positives & negatives. A total of 10 systems reviewed and were otherwise negative. Past Medical & Surgical Medical Problems: (1) Hypertension (2) PAD (peripheral artery disease) (3) PAD (peripheral artery disease) Surgical Problems: (1) H/O heart bypass surgery Family History FH: heart disease Social History Smoking Status: Former Smoker Alcohol Use: none Drug Use: none Marital Status: single Housing Status: lives alone Occupation Status: retired Current/Historical Medications Scheduled Atenolol (Tenormin), 50 MG PO QAM Atorvastatin (Lipitor), 40 MG PO QAM Clopidogrel (Plavix), 75 MG PO QAM Prednisone (Prednisone Tab), 0 PO DAILY Scheduled PRN Acetaminophen (Tylenol), 500 MG PO Q6 PRN for Pain Tramadol (Ultram), 50-100 MG PO Q6 PRN for Pain Allergies Coded Allergies: Ranitidine (Verified Allergy, Intermediate, rash, 10/27/16) Amoxicillin (Verified Adverse Reaction, Intermediate, SEVERE DIARRHEA, ) Cefadroxil (Verified Adverse Reaction, Mild, Nausea, 10/27/16) Statins (Verified Adverse Reaction, Mild, DIARRHEA, 10/27/16) WHEN HIGH DOSES USED CAN TOLERATE LOW DOSES Physical Exam Vital Signs Date Time Temp Pulse Resp B/P (MAP) Pulse Ox O2 Delivery O2 Flow Rate FiO2 06/01/17 20:41 77 126/67 95 06/01/17 19:56 91 Nasal Cannula 3.0 06/01/17 19:54 88 Room Air 06/01/17 19:35 70 98/57 91 Room Air 06/01/17 19:04 73 122/65 92 Room Air 06/01/17 18:39 60 180/106 99 06/01/17 18:38 60 15 95 Room Air 06/01/17 17:55 96 Nasal Cannula 06/01/17 17:54 96 Room Air 06/01/17 17:53 37.3 71 136/110 96 Room Air 06/01/17 17:53 69 Physical Exam GENERAL: Patient is a healthy-appearing well-nourished female, hyperventilating on exam. HEAD: Normocephalic atraumatic EYES: Ocular movements intact pupils equal and react to light OROPHARYNX mucous membranes are moist no exudates present no erythema or edema present NECK: Supple no nuchal rigidity CHEST: Good equal expansion LUNGS: Clear and equal to auscultation CARDIAC: Normal S1 and S2 ABDOMEN: Soft nontender no guarding BACK: No CVA tenderness EXTREMITIES: No pain upon palpation normal muscle strength in all groups no clubbing cyanosis or edema NEURO: Patient is following commands and answering questions appropriately. Alert and oriented x3 Cranial Nerves 2-12 grossly intact Medical Decision & Procedures ER Provider Diagnostic Interpretation: X-ray results as stated below per interpretation by me and the radiologist. Radiology results as stated below per my review and radiologist interpretation: CHEST ONE VIEW PORTABLE CLINICAL HISTORY: 77 years-old Female presenting with CHEST PAIN. TECHNIQUE: Portable upright AP view of the chest was obtained. COMPARISON: 04/16/2014. FINDINGS: Right subclavian pacer with leads in the right atrium and right ventricular apex. Median sternotomy wires and multiple mediastinal surgical clips unchanged. Atherosclerosis of the aortic arch. Cardiac silhouette normal in size. Mild prominence of pulmonary vasculature. Hazy reticular opacities at the lung bases. No large effusion or pneumothorax. Osseous structures normal. Upper abdomen normal. IMPRESSION: 1. Mild pulmonary vascular prominence with reticular basilar opacities could suggest volume overload with possible developing pulmonary edema. Electronically signed by: William Bell M.D. 06/01/2017 6:15 PM Dictated Date/Time: 06/01/2017 6:13 PM (CHEST FOR PE) ANGIO WITH CLINICAL HISTORY: 77 years-old Female presenting with ^Pt c/o chest pain, SOB, coughing, clinical concern for pulmonary embolus. TECHNIQUE: Multidetector CT angiography of the chest was performed after administration of intravenous contrast. 3-D volumetric and/or maximum intensity projection (MIP) images were subsequently reconstructed for review. IV contrast: 87 mL of Optiray 320. A dose lowering technique was used consistent with the principles of ALARA (as low as reasonably achievable). COMPARISON: 12/08/2012. CT DOSE (mGy.cm): The estimated cumulative dose is 267.50 mGy.cm. FINDINGS: Sanitary Napkin Machine Tender topogram: Right subclavian implanted cardiac defibrillator with leads in the right atrium and right ventricular apex. Median sternotomy wires and mediastinal surgical clips. Hyperinflation of the lungs. Pulmonary vasculature: The study is adequate for assessment of the pulmonary vascular tree. No filling defect within the pulmonary arteries to suggest embolus. Main pulmonary artery is not enlarged. No flattening of the interventricular septum. No intracardiac intracardiac filling defect. No reflux of contrast into the hepatic veins. Remaining chest: On soft tissue windows, exophytic nodule arising from the posterior aspect of the right thyroid gland measuring 1.2 cm. No axillary, supraclavicular, hilar, or mediastinal lymphadenopathy. Atherosclerosis. Postsurgical change of the ascending aorta likely from coronary artery bypass grafting. Coronary artery calcification. Bypass grafts grossly patent and normal in caliber. Normal heart size. No pericardial or pleural effusion. Upper abdomen normal. On lung windows, moderate emphysema. Dependent changes progressed from prior exam with subpleural reticulation with a basilar predominance, right greater than left. Previously noted solid triangular fissural nodule in the right middle lobe again measures 6 mm (series 4 image 110), unchanged. Adjacent fissural triangular solid nodule in the right middle lobe measures 7 mm (series 4 image 99), unchanged. Airways patent. On bone windows, degenerative changes of the spine. IMPRESSION: 1. No evidence of pulmonary embolus. No acute intrathoracic pathology. 2. Stable solid pulmonary nodules, unchanged since 2012. These would be considered benign and may represent encapsulated or unencapsulated pulmonary lymphoid tissue. 3. Exophytic thyroid nodule measuring 1.2 cm. Nonurgent ultrasound could be considered as clinically indicated. 4. Postsurgical changes of coronary artery bypass grafting. 5. Moderate emphysema. Please refer to below summary of Fleischner Society 2017 recommendations for follow-up of incidental CT nodules (Alexei Alvarado et al. Guidelines for management of incidental pulmonary nodules detected on CT images: From the Fleischner Society 2017. Radiology 2017; 284: 228-243.) SOLID NODULES Single nodule; size < 6 mm * Low risk patients: No routine follow-up * High risk patients: Optional CT at 12 months Single nodule; size 6-8 mm * Low risk patients: CT at 6-12 months, then consider CT at 18-24 months * High risk patients: CT at 6-12 months, then at 18-24 months Single nodule; size > 8 mm * Either low or high risk patients: Considered CT at 3 months, PET/CT, or tissue sampling Multiple nodules; size < 6 mm * Low risk patients: No routine follow up * High risk patients: Optional CT at 12 months Multiple nodules; size 6-8 mm * Low risk patients: CT at 3-6 months, then consider CT at 18-24 months * High risk patients: CT at 3-6 months, then at 18-24 months Multiple nodules; size > 8 mm * Low risk patients: CT at 3-6 months, then consider at 18-24 months * High risk patients: CT at 3-6 months, then at 18-24 months Note: These guidelines apply to incidental nodules. These guidelines do not apply to patients younger than 35 years, immunocompromised patients, or patients with cancer. * Low risk patients: Minimal or absent history of smoking and/or other known risk factors * High risk patients: History of smoking, exposure to other carcinogens, emphysema, fibrosis, upper lobe location, family history of lung cancer, etc. * If a nodule up to 8 mm is partly solid or is ground glass, further follow-up is required after 24 months to exclude possible slow growing adenocarcinoma. SUBSOLID NODULES Single ground-glass nodule * Nodule size < 6 mm: No routine follow-up * Nodule size > or = 6 mm: CT at 6-12 months to confirm persistence, then CT every 2 years until 5 years Single part-solid nodule * Nodule size < 6 mm: No routine follow-up * Nodules size > or = 6 mm: CT at 3-6 months to confirm persistence. If unchanged and solid component remains < 6 mm, annual CT should be performed for 5 years Multiple nodules * Nodule size < 6 mm: CT at 3-6 months. If stable, consider CT at 2 and 4 years. * Nodules size > or = 6 mm: CT at 3-6 months. Subsequent management based on the most suspicious nodule(s) Electronically signed by: William Bell M.D. 06/01/2017 7:35 PM Dictated Date/Time: 06/01/2017 7:25 PM Laboratory Results 06/01/17 18:15 Red Blood Count 4.17, Mean Corpuscular Volume 95.0, Mean Corpuscular Hemoglobin 31.7, Mean Corpuscular Hemoglobin Concent 33.3, Mean Platelet Volume 9.5, Neutrophils (%) (Auto) 53.5, Lymphocytes (%) (Auto) 37.7, Monocytes (%) (Auto) 6.4, Eosinophils (%) (Auto) 1.9, Basophils (%) (Auto) 0.3, Neutrophils # (Auto) 3.11, Lymphocytes # (Auto) 2.19, Monocytes # (Auto) 0.37, Eosinophils # (Auto) 0.11, Basophils # (Auto) 0.02 06/01/17 18:15 Test 06/01/17 18:00 06/01/17 18:15 06/01/17 18:19 06/01/17 18:20 Influenza Type A (RT-PCR) Neg for Influ A (NEG) Influenza Type A Antigen Neg for Influ A (NEG) Influenza Type B Antigen Neg for Influ B (NEG) Influenza Type B (RT-PCR) Neg for Influ B (NEG) White Blood Count 5.81 K/uL (4.8-10.8) Red Blood Count 4.17 M/uL (4.2-5.4) Hemoglobin 13.2 g/dL (12.0-16.0) Hematocrit 39.6 % (37-47) Mean Corpuscular Volume 95.0 fL (80-100) Mean Corpuscular Hemoglobin 31.7 pg (25-34) Mean Corpuscular Hemoglobin Concent 33.3 g/dl (32-36) Platelet Count 173 K/uL (130-400) Mean Platelet Volume 9.5 fL (7.4-10.4) Neutrophils (%) (Auto) 53.5 % Lymphocytes (%) (Auto) 37.7 % Monocytes (%) (Auto) 6.4 % Eosinophils (%) (Auto) 1.9 % Basophils (%) (Auto) 0.3 % Neutrophils # (Auto) 3.11 K/uL (1.4-6.5) Lymphocytes # (Auto) 2.19 K/uL (1.2-3.4) Monocytes # (Auto) 0.37 K/uL (0.11-0.59) Eosinophils # (Auto) 0.11 K/uL (0-0.5) Basophils # (Auto) 0.02 K/uL (0-0.2) RDW Standard Deviation 47.9 fL (36.4-46.3) RDW Coefficient of Variation 13.8 % (11.5-14.5) Immature Granulocyte % (Auto) 0.2 % Immature Granulocyte # (Auto) 0.01 K/uL (0.00-0.02) Est Creatinine Clear Calc Drug Dose 39.9 ml/min Estimated GFR () 65.7 Estimated GFR (Non- 56.6 BUN/Creatinine Ratio 11.1 (10-20) Calcium Level 9.7 mg/dl (8.5-10.1) Total Bilirubin 0.6 mg/dl (0.2-1) Direct Bilirubin 0.1 mg/dl (0-0.2) Aspartate Amino Transf (AST/SGOT) 18 U/L (15-37) Alanine Aminotransferase (ALT/SGPT) 16 U/L (12-78) Alkaline Phosphatase 108 U/L (45-117) Total Creatine Kinase 114 U/L (26-192) Creatine Kinase MB 1.8 ng/ml (0.5-3.6) Creatine Kinase MB Ratio 1.6 (0-3.0) Troponin I < 0.015 ng/ml (0-0.045) Pro-B-Type Natriuretic Peptide 288 pg/ml (0-1800) Total Protein 7.4 gm/dl (6.4-8.2) Albumin 3.5 gm/dl (3.4-5.0) Lipase 151 U/L (73-393) Bedside D-Dimer > 450 ng/mlFEU (0-450) Bedside Hemoglobin 11.9 g/dl (12.0-16.0) Bedside Hematocrit 35 % (37-47) Bedside Sodium 141 mEq/L (135-144) Bedside Potassium 4.0 mEq/L (3.3-5.0) Bedside Chloride 109 mEq/L (101-112) Bedside Total CO2 23 mEq/l (24-31) Anion Gap 14.0 mmol/L (16-25) Bedside Blood Urea Nitrogen 10 mg/dl (7-18) Bedside Creatinine 1.0 mg/dl (0.6-1.3) Bedside Glucose (other) 99 mg/dl (70-99) Bedside Ionized Calcium (Ashley) 1.18 mmol/l (1.12-1.32) Labs reviewed by ED physician. Medications Administered Medications (Trade) Dose Ordered Sig/Rodrick Route Start Time Stop Time Status Last Admin Dose Admin Levalbuterol (Xopenex 1.25MG/ 3ML Neb) 1.25 mg NOW STAT INH 06/01/17 17:50 06/01/17 17:53 DC 06/01/17 17:50 1.25 MG Lorazepam (Ativan Inj) 1 mg NOW STAT IV 06/01/17 18:18 06/01/17 18:19 DC 06/01/17 18:33 1 MG Furosemide (Lasix Inj) 40 mg NOW STAT IV 06/01/17 18:18 06/01/17 18:19 DC 06/01/17 18:33 40 MG Methylprednisolone Sodium Succinate (Solu-Medrol IV) 60 mg NOW STAT IV 06/01/17 19:42 06/01/17 19:43 DC 06/01/17 19:54 60 MG Albuterol (Ventolin Hfa Inhaler) 2 puffs NOW STAT INH 06/01/17 20:04 06/01/17 20:05 DC 06/01/17 20:27 2 PUFFS ECG Indication: chest pain Rate (beats per minute): 67 Rhythm: normal sinus Findings: T-wave inversion (Anterior), no acute ischemic change, no ectopy ED Course 1745: Past medical records reviewed. The patient was evaluated in room C5. A complete history and physical examination was performed. 1749: Levalbuterol 1.25 mg INH. 1817: Lasix Inj 40 mg IV, Ativan Inj 1 mg IV. 1942: Solu-Medrol IV 60 mg IV. 2000: Upon reexamination the patient is resting comfortably. I discussed results and treatment plan with the patient. She verbalizes agreement and understanding. The patient is ready for discharge. 2004: Albuterol 2 puffs INH. Medical Decision Differential diagnosis: Etiologies such as cardiac ischemia, aortic dissection, pulmonary embolism, pneumonia, pneumothorax, musculoskeletal, infections, pericarditis, myocarditis , esophageal rupture, gastrointestinal, as well as others were entertained. This is a 77-year-old female who presents emergency department complaining of shortness of breath and chest pain. The patient does have a history of emphysema. She has an elevation in her d-dimer therefore she was sent for CAT scan of the chest. The patient was given Xopenex breathing treatments in the emergency department along with Solu-Medrol. Repeat examination revealed much improvement the patient's symptoms. I strongly recommended to the patient that she be admitted based on her past medical history of cardiac bypass however the patient is adamantly refusing and wishes to go home. I believe that this is reasonable as her EKG does not show any acute ischemia and her CK-MB and troponin fractions are normal. I will trial her on prednisone she was given an albuterol inhaler for home. She was given strict return instructions. Patient was in agreement with the treatment plan. Medication Reconcilliation Current Medication List: was personally reviewed by me Blood Pressure Screening Patient's blood pressure: Normal blood pressure Blood pressure disposition: Did not require urgent referral Impression Primary Impression: COPD exacerbation Scribe Attestation The scribe's documentation has been prepared under my direction and personally reviewed by me in its entirety. I confirm that the note above accurately reflects all work, treatment, procedures, and medical decision making performed by me. Departure Information Dispostion Home / Self-Care Prescriptions Prednisone (Prednisone Tab) 20 Mg Tab 0 PO DAILY, #7 TAB 2 TABS DAILY FOR 2 DAYS, THEN 1 TAB DAILY FOR 2 DAYS, THEN 1/2 TAB DAILY FOR 2 DAYS. Prov: Cassius Bai MD 06/01/17 Referrals William Rosario M.D. (PCP) Forms HOME CARE DOCUMENTATION FORM, IMPORTANT VISIT INFORMATION, WORK / SCHOOL INSTRUCTIONS Patient Instructions COPD - [facility], My [facility] Additional Instructions Use inhaler twice every 6 hours You received narcotic or benzodiazepene medication while in the emergency room today. This is an addictive medication that may cause drowziness as well as constipation. Do not drive, operate heavy machinery, or drink alcohol under the influence of this medication. You have been examined and treated today on an emergency basis only. This is not a substitute for, or an effort to provide, complete comprehensive medical care. It is impossible to recognize and treat all injuries or illnesses in a single emergency department visit. It is therefore important that you follow up closely with Dr Rosario. Call as soon as possible for an appointment. Thank you for your time and consideration. I look forward to speaking with you again soon. Please don't hesitate to call us if you have any questions.
--- NOTE | 2017-06-01 18:16 | DIAGNOSTIC IMAGING REPORT ---
CHEST ONE VIEW PORTABLE CLINICAL HISTORY: 77 years-old Female presenting with CHEST PAIN. TECHNIQUE: Portable upright AP view of the chest was obtained. COMPARISON: 04/16/2014. FINDINGS: Right subclavian pacer with leads in the right atrium and right ventricular apex. Median sternotomy wires and multiple mediastinal surgical clips unchanged. Atherosclerosis of the aortic arch. Cardiac silhouette normal in size. Mild prominence of pulmonary vasculature. Hazy reticular opacities at the lung bases. No large effusion or pneumothorax. Osseous structures normal. Upper abdomen normal. IMPRESSION: 1. Mild pulmonary vascular prominence with reticular basilar opacities could suggest volume overload with possible developing pulmonary edema. Electronically signed by: William Bell M.D. 06/01/2017 6:15 PM Dictated Date/Time: 06/01/2017 6:13 PM
[2017-06-01] MEDS ORDERED: FUROSEMIDE 40 MG/4 ML VIAL IV STA (18:18)
[2017-06-01] MEDS ORDERED: LORAZEPAM 2 MG/ML 1 ML VIAL IV STA (18:18)
[2017-06-01 18:30] LABS: BASO % 0.3 %; BASO ABS # 0.02 K/uL (0-0.2); COMPLETE YES; EOS % 1.9 %; HEMATOCRIT 39.6 % (37-47); IG% 0.2 %; LYMPH % 37.7 %; LYMPH ABS # 2.19 K/uL (1.2-3.4); MEAN CORPUSCULAR HEMOGLOBIN 31.7 pg (25-34); MEAN CORPUSCULAR HGB CONC 33.3 g/dl (32-36); MEAN PLATELET VOLUME 9.5 fL (7.4-10.4); MONO % 6.4 %; NEUT % 53.5 %; PLATELET COUNT 173 K/uL (130-400); RED BLOOD COUNT 4.17 M/uL (4.2-5.4); WHITE BLOOD COUNT 5.81 K/uL (4.8-10.8)
[2017-06-01 18:38] VITALS: PULSE 60; O2SAT 95
[2017-06-01] MEDS ORDERED: OPTIRAY 320 IV PRN (18:45)
[2017-06-01 18:52] LABS: ALT/SGPT 16 U/L (12-78); BLOOD UREA NITROGEN 11 mg/dl (7-18); BUN/CREATININE RATIO 11.1 (10-20); CALCIUM 9.7 mg/dl (8.5-10.1); CARBON DIOXIDE 23 mmol/L (21-32); CHLORIDE 109 mmol/L (98-107); CREATININE 0.96 mg/dl (0.60-1.20); GLUCOSE 94 mg/dl (70-99); SODIUM 139 mmol/L (136-145)
[2017-06-01 18:58] LABS: ALKALINE PHOSPHATASE 108 U/L (45-117); AST/SGOT 18 U/L (15-37); CKMB/CK RATIO 1.6 (0-3.0)
--- NOTE | 2017-06-01 19:36 | DIAGNOSTIC IMAGING REPORT ---
(CHEST FOR PE) ANGIO WITH CLINICAL HISTORY: 77 years-old Female presenting with ^Pt c/o chest pain, SOB, coughing, clinical concern for pulmonary embolus. TECHNIQUE: Multidetector CT angiography of the chest was performed after administration of intravenous contrast. 3-D volumetric and/or maximum intensity projection (MIP) images were subsequently reconstructed for review. IV contrast: 87 mL of Optiray 320. A dose lowering technique was used consistent with the principles of ALARA (as low as reasonably achievable). COMPARISON: 12/08/2012. CT DOSE (mGy.cm): The estimated cumulative dose is 267.50 mGy.cm. FINDINGS: Lead Designer topogram: Right subclavian implanted cardiac defibrillator with leads in the right atrium and right ventricular apex. Median sternotomy wires and mediastinal surgical clips. Hyperinflation of the lungs. Pulmonary vasculature: The study is adequate for assessment of the pulmonary vascular tree. No filling defect within the pulmonary arteries to suggest embolus. Main pulmonary artery is not enlarged. No flattening of the interventricular septum. No intracardiac intracardiac filling defect. No reflux of contrast into the hepatic veins. Remaining chest: On soft tissue windows, exophytic nodule arising from the posterior aspect of the right thyroid gland measuring 1.2 cm. No axillary, supraclavicular, hilar, or mediastinal lymphadenopathy. Atherosclerosis. Postsurgical change of the ascending aorta likely from coronary artery bypass grafting. Coronary artery calcification. Bypass grafts grossly patent and normal in caliber. Normal heart size. No pericardial or pleural effusion. Upper abdomen normal. On lung windows, moderate emphysema. Dependent changes progressed from prior exam with subpleural reticulation with a basilar predominance, right greater than left. Previously noted solid triangular fissural nodule in the right middle lobe again measures 6 mm (series 4 image 110), unchanged. Adjacent fissural triangular solid nodule in the right middle lobe measures 7 mm (series 4 image 99), unchanged. Airways patent. On bone windows, degenerative changes of the spine. IMPRESSION: 1. No evidence of pulmonary embolus. No acute intrathoracic pathology. 2. Stable solid pulmonary nodules, unchanged since 2013. These would be considered benign and may represent encapsulated or unencapsulated pulmonary lymphoid tissue. 3. Exophytic thyroid nodule measuring 1.2 cm. Nonurgent ultrasound could be considered as clinically indicated. 4. Postsurgical changes of coronary artery bypass grafting. 5. Moderate emphysema. Please refer to below summary of Fleischner Society 2017 recommendations for follow-up of incidental CT nodules (H Christiano et al. Guidelines for management of incidental pulmonary nodules detected on CT images: From the Fleischner Society 2017. Radiology 2017; 284: 228-243.) SOLID NODULES Single nodule; size < 6 mm * Low risk patients: No routine follow-up * High risk patients: Optional CT at 12 months Single nodule; size 6-8 mm * Low risk patients: CT at 6-12 months, then consider CT at 18-24 months * High risk patients: CT at 6-12 months, then at 18-24 months Single nodule; size > 8 mm * Either low or high risk patients: Considered CT at 3 months, PET/CT, or tissue sampling Multiple nodules; size < 6 mm * Low risk patients: No routine follow up * High risk patients: Optional CT at 12 months Multiple nodules; size 6-8 mm * Low risk patients: CT at 3-6 months, then consider CT at 18-24 months * High risk patients: CT at 3-6 months, then at 18-24 months Multiple nodules; size > 8 mm * Low risk patients: CT at 3-6 months, then consider at 18-24 months * High risk patients: CT at 3-6 months, then at 18-24 months Note: These guidelines apply to incidental nodules. These guidelines do not apply to patients younger than 35 years, immunocompromised patients, or patients with cancer. * Low risk patients: Minimal or absent history of smoking and/or other known risk factors * High risk patients: History of smoking, exposure to other carcinogens, emphysema, fibrosis, upper lobe location, family history of lung cancer, etc. * If a nodule up to 8 mm is partly solid or is ground glass, further follow-up is required after 24 months to exclude possible slow growing adenocarcinoma. SUBSOLID NODULES Single ground-glass nodule * Nodule size < 6 mm: No routine follow-up * Nodule size > or = 6 mm: CT at 6-12 months to confirm persistence, then CT every 2 years until 5 years Single part-solid nodule * Nodule size < 6 mm: No routine follow-up * Nodules size > or = 6 mm: CT at 3-6 months to confirm persistence. If unchanged and solid component remains < 6 mm, annual CT should be performed for 5 years Multiple nodules * Nodule size < 6 mm: CT at 3-6 months. If stable, consider CT at 2 and 4 years. * Nodules size > or = 6 mm: CT at 3-6 months. Subsequent management based on the most suspicious nodule(s) Electronically signed by: William Bell M.D. 06/01/2017 7:35 PM Dictated Date/Time: 06/01/2017 7:25 PM
[2017-06-01] MEDS ORDERED: METHYLPREDNISOLONE 125 MG VIAL IV STA (19:42)
[2017-06-01 19:56] VITALS: O2SAT 91
[2017-06-01] MEDS ORDERED: ALBUTEROL HFA 8 GM INHALER INH STA (20:04)
[2017-06-01] MEDS ORDERED: PRED20TA2 PO (20:05)
[2017-06-01 20:30] LABS: INFLUENZA A PCR Neg for Influ A (NEG); INFLUENZA B PCR Neg for Influ B (NEG)
[2017-06-01 20:41] VITALS: BP 126/67; PULSE 77; O2SAT 95
[2017-06-01 21:10] LABS: ISTAT HEMOGLOBIN 11.9 g/dl (12.0-16.0); ISTAT IONIZED CALCIUM 1.18 mmol/l (1.12-1.32)
== END 2017-06-01 20:43 | disposition home or self-care (01) ==
LOC: EDBD 17:41 → C.EDC 17:42
DX: J44.1 Chronic obstructive pulmonary disease with (acute) exacerbation (principal); I10 Essential (primary) hypertension; I73.9 Peripheral vascular disease, unspecified; Z95.1 Presence of aortocoronary bypass graft; Z87.891 Personal history of nicotine dependence; Z79.02 Long term (current) use of antithrombotics/antiplatelets; Z79.899 Other long term (current) drug therapy

== ENCOUNTER 2021-06-29 17:39 | Inpatient (IN) ==
--- NOTE | 2021-06-29 19:09 | Emergency Department Note ---
Impression & Plan Dehydration, COVID-19, Hypokalemia ED Provider Note NAME: GREGG CHAVARRIA AGE: 81 SEX: F : 1940 ARRIVES VIA: Ambulance INFORMANT: Patient, ED PROVIDER(S): Rober Myers MD Chief Complaint: Abdominal pain HPI: Patient does present with concern for abdominal discomfort which she states may be secondary to chronic congestion for which she is swallowed. Patient states that she had symptoms for the last week or so. The patient has a positive COVID approximate 5 days prior. Patient has had no bowel movements and is not passing gas for the last 3 days. Patient states her abdominal pain is in the lower abdomen achy nonradiating. Patient denies any dysuria hematuria. Patient denies any recent falls or trauma. The patient does complain of dry mouth and has tried [id number] medications including Biotene and liquids but has not had any improvement in symptoms. The patient does have some upset stomach but denies any nausea or vomiting. Patient denies any chest pains or shortness of breath. The patient is not vaccinated for COVID-19 as she was told that she is allergic to many antibiotics and should not be vaccinated. ROS: See HPI for pertinent positives and negatives. A total of 10 systems were reviewed and otherwise negative. Past medical history: See below Surgical history: See below Social history: See below Physical Exam: GENERAL: NAD, wearing glasses, wearing a mask, non-toxic. EYE EXAM: Normal conjunctiva. PERRL, no anisocoria and EOM's grossly intact w/o pain. OROPHARYNX: Dry mucus membranes. Grossly normal dentition. NECK: Supple, no nuchal rigidity, no adenopathy, non-tender. No signs of meningismus. FROM of the neck with good chin to chest and neck extension. No stridor. LUNGS: Clear to auscultation. Normal chest wall mechanics. HEART: NSR, no MRG. ABDOMEN: Abdomen soft, mild lower abdominal discomfort but without upper abdominal pain, normo-active bowel sounds, no masses, no rebound or guarding. BACK: No CVA TTP. SKIN: No rashes and no bruising. UPPER EXTREMITIES: Upper extremities are grossly normal. LOWER EXTREMITIES: Grossly normal, no edema. NEURO EXAM: A&O x3, cranial nerves II-XII grossly intact, normal speech, moves all 4 extremities on command w/o issue. Differential diagnoses: Appendicitis, ovarian cyst, ovarian torsion, ectopic p regnancy, TOA, PID, infections, diverticulitis, UTI, obstruction, mesenteric ischemia, aortic pathology, inflammatory bowel disease, renal colic, PUD, pancreatitis, biliary pathology, hernia, volvulus, constipation, as well as other pathologies. Course: Patient was seen and evaluated the bedside. Full history physical exam was performed. Imaging Studies: See Below Cardiac monitoring: An order was placed for continuous cardiac monitoring. The monitor shows a rate of 65 with sinus rhythm. MDM: Patient was seen due to concern for abdominal discomfort as well as associated dry mouth and dehydration. Patient did have blood work completed. Patient motor did show leukopenia. The patient's kidney function was grossly unremarkable. The patient did have mild hypokalemia. Patient never complained of any chest pains or shortness of breath. The patient does not feel comfortable with going home and the patient has had a repeat visit for COVID illness. I did speak with the on-call hospitalist given the patient's weakness concern for inability to care for self at home and the patient was admitted by Dr. Bocanegra. Patient CT showed bladder wall thickening but appears similar to prior. Patient denies any dysuria. 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: No Beliefs That Will Affect Care: None Current Living Situation: Alone Other Information That Helps Us Care for You: No Feels Safe at Home: Yes Safety Concerns: Feels Safe At This Time Assistive Devices: None Immunizations: Not vaccinated for COVID-19 Allergies Allergies Allergy/AdvReac Type Severity Reaction Status Date / Time Penicillins Allergy Intermediate ITCHY RASH Verified 06/29/21 18:46 ranitidine Allergy Intermediate rash Verified 06/29/21 18:46 levofloxacin [From Levaquin] Allergy Mild Rash Verified 06/29/21 18:46 doxycycline Allergy Unknown ON MED LIST Verified 06/29/21 18:46 amoxicillin AdvReac Intermediate SEVERE Verified 06/29/21 18:46 DIARRHEA cefadroxil AdvReac Mild Nausea Verified 06/29/21 18:46 Sbzjzam-DXB-ViV Reductase AdvReac Mild DIARRHEA Verified 06/29/21 18:46 Inhibitor [Szegomf-Kqz-Qio Reductase Inhibitor] ANTIBIOTICS Allergy Unknown PER PT Uncoded 06/29/21 18:46 "ALLERGIC TO A LOT OF ANTIBIOTICS". Home Meds Home Medications Medication Instructions Recorded Confirmed atorvastatin 40 mg tablet 40 mg PO QAM 07/05/18 06/29/21 clopidogrel 75 mg tablet 75 mg PO QAM 07/05/18 06/29/21 metoprolol succinate 50 mg 50 mg PO QAM 07/05/18 06/29/21 tablet,extended release 24 hr acetaminophen 500 mg tablet 500 mg PO Q6H PRN 09/07/19 06/29/21 (Tylenol Extra Strength) Results & Data (ED) Vital Signs Vital Signs - 24 hr 06/29/21 17:44 06/29/21 17:46 06/29/21 17:50 Temperature 36.9 C Temperature Source Oral Pulse Rate 60 60 60 Pulse Rate from SpO2 Sensor 60 59 L Pulse Rhythm Regular Pulse Strength Normal Respiratory Rate 16 20 10 L Respiratory Effort / Characteristics Non-Labored Spontaneous Respiratory Depth Normal Respiratory Pattern Regular Blood Pressure 145/57 H Blood Pressure [Right Arm] Blood Pressure Mean 86 Blood Pressure Mean [Right Arm] Blood Pressure Position Sitting Pulse Oximetry 97 93 93 Oxygen Delivery Method Room Air Sepsis Recent Fever Within 48 Hours No Sepsis New/Unexplained Change in Mental Status N/A Sepsis Action Taken by Nursing No Action Required 06/29/21 18:00 06/29/21 18:10 06/29/21 18:31 Temperature 36.6 C Temperature Source Oral Pulse Rate 60 60 Pulse Rate from SpO2 Sensor 60 61 Pulse Rhythm Pulse Strength Respiratory Rate 16 14 14 Respiratory Effort / Characteristics Non-Labored Respiratory Depth Normal Respiratory Pattern Blood Pressure 136/62 Blood Pressure [Right Arm] 136/62 Blood Pressure Mean 86 Blood Pressure Mean [Right Arm] 86 Blood Pressure Position Pulse Oximetry 91 90 96 Oxygen Delivery Method Room Air Sepsis Recent Fever Within 48 Hours Sepsis New/Unexplained Change in Mental Status Sepsis Action Taken by Nursing 06/29/21 19:49 06/29/21 19:50 06/29/21 19:51 Temperature Temperature Source Pulse Rate 60 65 68 Pulse Rate from SpO2 Sensor 61 56 L Pulse Rhythm Pulse Strength Respiratory Rate 17 13 Respiratory Effort / Characteristics Respiratory Depth Respiratory Pattern Blood Pressure 143/60 H Blood Pressure [Right Arm] Blood Pressure Mean 87 Blood Pressure Mean [Right Arm] Blood Pressure Position Pulse Oximetry 92 92 98 Oxygen Delivery Method Room Air Sepsis Recent Fever Within 48 Hours Sepsis New/Unexplained Change in Mental Status Sepsis Action Taken by Nursing 06/29/21 20:00 06/29/21 20:10 06/29/21 20:20 Temperature Temperature Source Pulse Rate 60 64 64 Pulse Rate from SpO2 Sensor 60 63 63 Pulse Rhythm Pulse Strength Respiratory Rate 15 16 23 Respiratory Effort / Characteristics Respiratory Depth Respiratory Pattern Blood Pressure 136/58 L Blood Pressure [Right Arm] Blood Pressure Mean 84 Blood Pressure Mean [Right Arm] Blood Pressure Position Pulse Oximetry 94 96 91 Oxygen Delivery Method Sepsis Recent Fever Within 48 Hours Sepsis New/Unexplained Change in Mental Status Sepsis Action Taken by Nursing 06/29/21 20:30 06/29/21 20:40 06/29/21 20:58 Temperature Temperature Source Pulse Rate 61 62 72 Pulse Rate from SpO2 Sensor 61 62 72 Pulse Rhythm Pulse Strength Respiratory Rate 16 18 19 Respiratory Effort / Characteristics Respiratory Depth Respiratory Pattern Blood Pressure 136/50 L Blood Pressure [Right Arm] Blood Pressure Mean 78 Blood Pressure Mean [Right Arm] Blood Pressure Position Pulse Oximetry 90 89 L 89 L Oxygen Delivery Method Sepsis Recent Fever Within 48 Hours Sepsis New/Unexplained Change in Mental Status Sepsis Action Taken by Nursing 06/29/21 21:00 06/29/21 21:10 06/29/21 21:20 Temperature Temperature Source Pulse Rate 67 65 76 Pulse Rate from SpO2 Sensor 67 63 65 Pulse Rhythm Pulse Strength Respiratory Rate 18 18 18 Respiratory Effort / Characteristics Respiratory Depth Respiratory Pattern Blood Pressure 138/58 L Blood Pressure [Right Arm] Blood Pressure Mean 84 Blood Pressure Mean [Right Arm] Blood Pressure Position Pulse Oximetry 94 88 L 91 Oxygen Delivery Method Sepsis Recent Fever Within 48 Hours Sepsis New/Unexplained Change in Mental Status Sepsis Action Taken by Nursing 06/29/21 21:30 06/29/21 21:40 06/29/21 21:50 Temperature Temperature Source Pulse Rate 62 80 66 Pulse Rate from SpO2 Sensor 63 73 66 Pulse Rhythm Pulse Strength Respiratory Rate 12 23 18 Respiratory Effort / Characteristics Respiratory Depth Respiratory Pattern Blood Pressure 155/61 H Blood Pressure [Right Arm] Blood Pressure Mean 92 Blood Pressure Mean [Right Arm] Blood Pressure Position Pulse Oximetry 86 L 88 L 96 Oxygen Delivery Method Sepsis Recent Fever Within 48 Hours Sepsis New/Unexplained Change in Mental Status Sepsis Action Taken by Nursing 06/29/21 22:00 06/29/21 23:30 Temperature Temperature Source Pulse Rate 77 65 Pulse Rate from SpO2 Sensor Pulse Rhythm Pulse Strength Respiratory Rate 22 14 Respiratory Effort / Characteristics Respiratory Depth Respiratory Pattern Blood Pressure 132/64 Blood Pressure [Right Arm] Blood Pressure Mean 86 Blood Pressure Mean [Right Arm] Blood Pressure Position Pulse Oximetry 94 Oxygen Delivery Method Room Air Sepsis Recent Fever Within 48 Hours Sepsis New/Unexplained Change in Mental Status Sepsis Action Taken by [facility] Medications Current Medication List: was personally reviewed by me Laboratory Data Attestation: I reviewed the patient's lab results. Result diagrams: 06/30/21 05:00 06/30/21 05:00 Lab Results 06/29/21 06/29/21 06/29/21 Range/Units 19:56 19:56 19:56 WBC 2.25 L (4.8-10.8) K/uL RBC 4.26 (4.2-5.4) M/uL Hgb 13.2 (12.0-16.0) g/dL Hct 40.7 (37-47) % MCV 95.5 (80-100) fL MCH 31.0 (25-34) pg MCHC 32.4 (32-36) g/dL RDW Std Deviation 49.0 H (36.4-46.3) fL RDW Coeff of Veda 14.0 (11.5-14.5) % Plt Count 131 (130-400) K/uL MPV 10.1 (7.4-10.4) fL Immature Gran % (Auto) 0.0 % Neut % (Auto) 57.8 % Lymph % (Auto) 29.8 % [place] % (Auto) 12.4 % Eos % (Auto) 0.0 % Baso % (Auto) 0.0 % Neut # (Auto) 1.30 L (1.4-6.5) K/uL Lymph # (Auto) 0.67 L (1.2-3.4) K/uL [place] # (Auto) 0.28 (0.11-0.59) K/uL Eos # (Auto) 0.00 (0-0.5) K/uL Baso # (Auto) 0.00 (0-0.2) K/uL Immature Gran # (Auto) 0.00 (0.00-0.02) K/uL Sodium 139 (136-145) mmol/L Potassium 3.2 L (3.5-5.1) mmol/L Chloride 107 (98-107) mmol/L Carbon Dioxide 24 (21-32) mmol/L Anion Gap 8 (3-11) BUN 9 (6-23) mg/dl Creatinine 0.92 (0.6-1.2) mg/dl Est Cr Clr Drug Dosing 39.0 ml/min Est GFR ( Amer) 67.2 ml/min Est GFR (Non-Af Amer) 58.0 ml/min BUN/Creatinine Ratio 9.8 L (10-20) Glucose 98 (70-99(Fasting)) mg/dl Calcium 9.1 (8.5-10.1) mg/dl Magnesium 1.8 (1.7-2.4) mg/dl Total Bilirubin 0.5 (0.2-1.0) mg/dl AST 30 (13-39) U/L ALT 19 (7-52) U/L Alkaline Phosphatase 73 (34-104) U/L Total Protein 6.5 (6.0-8.3) gm/dl Albumin 3.7 (3.4-5.0) gm/dl Globulin 2.8 (2.5-4.0) gm/dl Albumin/Globulin Ratio 1.3 (0.9-2) Lipase 33 (11-82) U/L Administered Medications Acetaminophen (Acetaminophen 325 Mg Tab) 650 mg PO Q6H PRN PRN Reason: Fever/pain Stop: 07/29/21 23:34 Last Admin: 06/30/21 15:34 Dose: 650 mg Documented by: [id number] Atorvastatin Calcium (Atorvastatin 40 Mg Tab) 40 mg PO [facility] Stop: 07/30/21 08:59 Last Admin: 06/30/21 08:33 Dose: 40 mg Documented by: [id number] Clopidogrel Bisulfate (Clopidogrel Bisulfate 75 Mg Tab) 75 mg PO [facility] Stop: 07/30/21 08:59 Last Admin: 06/30/21 08:33 Dose: 75 mg Documented by: [id number] Enoxaparin Sodium (Enoxaparin Inj 30 Mg/0.3 Ml Syr) 30 mg SQ QAM GREG Stop: 07/30/21 08:59 Last Admin: 06/30/21 08:33 Dose: 30 mg Documented by: [id number] Metoprolol Succinate (Metoprolol Succ 50mg Ext Rel Tab) 50 mg PO QAM GREG Stop: 07/30/21 08:59 Last Admin: 06/30/21 08:34 Dose: 50 mg Documented by: [id number] Nystatin (Nystatin Susp 500,000 U/5 Ml Udc) 5 ml PO QID GREG Stop: 07/10/21 08:59 Last Admin: 06/30/21 14:09 Dose: 5 ml Documented by: [id number] Admin: 06/30/21 08:33 Dose: 5 ml Documented by: [id number] Discontinued Medications Nystatin 0.625 ml/Dexamethasone 0.078 mg/Diphenhydramine HCl 6.25 mg/Sucrose 0.94 ml/Microcrystalline Cellulose 0. 94 ml/ BARCODE IDENTIFIER 1 ea 0 ml PO ONE ONE Stop: 06/29/21 23:31 Last Admin: 06/30/21 01:14 Dose: 5 ml Documented by: [id number] Sodium Chloride (Nss 1000ml) 1,000 mls @ 999 mls/hr IV .Q1H1M STA Stop: 06/29/21 20:27 Last Infusion: 06/29/21 20:31 Dose: 0 mls/hr Documented by: [id number] Admin: 06/29/21 19:50 Dose: 999 mls/hr Documented by: [id number] Sodium Chloride (Nss 1000ml) 1,000 mls @ 100 mls/hr IV .Q10H GREG Stop: 07/29/21 21:44 Last Infusion: 06/30/21 03:11 Dose: 0 mls/hr Documented by: [id number] Infusion: 06/30/21 01:15 Dose: 100 mls/hr Documented by: [id number] Admin: 06/29/21 21:53 Dose: 100 mls/hr Documented by: [id number] Lactated Ringer's (Lr) 1,000 mls @ 80 mls/hr IV .[id number] ONE Stop: 06/30/21 12:04 Last Infusion: 06/30/21 14:15 Dose: 0 mls/hr Documented by: [id number] Admin: 06/30/21 01:15 Dose: 80 mls/hr Documented by: [id number] Ioversol (Optiray 320 100ml) 94 ml IV ONCE ONE Stop: 06/29/21 20:51 Last Admin: 06/29/21 20:50 Dose: 94 ml Documented by: [id number] Ondansetron HCl (Ondansetron Inj 2 Mg/Ml 2 Ml Vial) 4 mg IV NOW STA Stop: 06/29/21 19:28 Last Admin: 06/29/21 20:11 Dose: 4 mg Documented by: [id number] Potassium Chloride (Potassium Chloride Pwd 20 Meq Pack) 40 meq PO NOW STA Stop: 06/29/21 21:33 Last Admin: 06/29/21 22:24 Dose: 40 meq Documented by: [id number] Potassium Chloride (Potassium Chloride Crtab 20 Meq Tabcr) 40 meq PO NOW STA Stop: 06/29/21 21:36 Last Admin: 06/29/21 21:53 Dose: 40 meq Documented by: [id number] Imaging Data Radiologist's Impression: Abdomen/Pelvis CT 06/29/21 19:27 CT OF THE ABDOMEN AND PELVIS WITH CONTRAST CLINICAL HISTORY: Lower abdominal pain; covid, no BM/gas x 3 days COMPARISON STUDY: CT of the abdomen and pelvis July 05, 2018. TECHNIQUE: Following IV administration of 94 mL of Optiray, axial images of the abdomen and pelvis were obtained from the lung bases to the proximal femurs. Images were reviewed in the axial, sagittal, and coronal planes. IV contrast was administered without complication. Automated exposure control was utilized for the study. A dose lowering technique was utilized adhering to the principles of ALARA. CT DOSE: 237.88 mGy.cm FINDINGS: Pacer leads are partially imaged. Note is made of emphysema within visualized portions of the lower lungs. Subpleural groundglass opacity and reticulation is similar to prior CT. No pneumatosis, free air or portal venous gas is present. There is a small hiatal hernia. Probable hepatic steatosis. There are gallstones within the gallbladder. The gallbladder is mildly distended. There is no pericholecystic infiltration. A 1.8 cm left adrenal nodule is unchanged. The spleen, right adrenal gland and pancreas are unremarkable. There is no biliary or pancreatic ductal dilatation. A 3 mm calcification within the right renal sinus is probably vascular however a nonobstructing calculus could appear similar. There are no ureteral calculi and there is no hydronephrosis. A 3.3 cm abdominal aortic aneurysm is similar to prior exam. There is extensive aortoiliac atherosclerotic plaque. The caliber and wall thickness of small and large bowel are normal. The appendix is normal. Bladder wall thickening is unchanged. There is no ascites or lymphadenopathy. No acute fracture or suspicious lesion is identified within visualized skeletal str uctures. IMPRESSION: 1. No bowel obstruction. No bowel wall thickening. Normal appendix. 2. Bladder wall thickening. This is similar to prior CT and likely chronic although could be correlated with urinalysis. 3. Emphysema. Subpleural groundglass opacities within the lower lungs which are similar to prior CT and favor interstitial lung disease. Superimposed viral pneumonia would be difficult to completely exclude. 4. Cholelithiasis. No convincing evidence for acute cholecystitis. 5. No significant change in a 3.3 cm infrarenal abdominal aortic aneurysm. ACT 112: Negative or not required by law. Electronically signed by: Anil Guevara M.D. 06/29/2021 9:09 PM Discharge Plan Visit Data Chief Complaint: Abdominal Pain ED Provider: Rober Myers Discharge Problem: Dehydration, COVID-19, Hypokalemia Patient Disposition: Admitted As Inpatient Discharge Instructions Interventions: ED Discharge Assessment Last Done: 06/30/21 01:31
[2021-06-29] MEDS ORDERED: ONDANSETRON INJ 2 MG/ML 2 ML VIAL IV STA (19:27)
[2021-06-29] MEDS ORDERED: SODIUM CHLORIDE 0.9% 1000ML 1,000 ML IV STA (19:27)
[2021-06-29 20:05] LABS: Hematocrit (blood only) 40.7 % (37-47); Hemoglobin 13.2 g/dL (12.0-16.0); Lymphocytes # (auto) 0.67 K/uL (1.2-3.4); Lymphocytes % (auto) 29.8 %; Mean Corpuscular Hgb Conc 32.4 g/dL (32-36); Mean Corpuscular Volume 95.5 fL (80-100); Mean Platelet Volume 10.1 fL (7.4-10.4); Monocytes # (auto) 0.28 K/uL (0.11-0.59); Monocytes % (auto) 12.4 %; Neutrophils % (auto) 57.8 %; Platelet Count 131 K/uL (130-400); Red Blood Count 4.26 M/uL (4.2-5.4); White Blood Count 2.25 K/uL (4.8-10.8)
[2021-06-29 20:26] LABS: Albumin Globulin Ratio 1.3 (0.9-2); Albumin Level 3.7 gm/dl (3.4-5.0); BUN Creatinine Ratio 9.8 (10-20); Bilirubin,Total 0.5 mg/dl (0.2-1.0); Calcium 9.1 mg/dl (8.5-10.1); Est GFR (African American) 67.2 ml/min; Globulin 2.8 gm/dl (2.5-4.0); Potassium 3.2 mmol/L (3.5-5.1); Total Protein 6.5 gm/dl (6.0-8.3)
[2021-06-29] MEDS ORDERED: OPTIRAY 320 100ml IV ONE (20:50)
--- NOTE | 2021-06-29 21:10 | CT Scan Report ---
CT OF THE ABDOMEN AND PELVIS WITH CONTRAST CLINICAL HISTORY: Lower abdominal pain; covid, no BM/gas x 3 days COMPARISON STUDY: CT of the abdomen and pelvis July 05, 2018. TECHNIQUE: Following IV administration of 94 mL of Optiray, axial images of the abdomen and pelvis we re obtained from the lung bases to the proximal femurs. Images were reviewed in the axial, sagittal, and coronal planes. IV contrast was administered without complication. Automated exposure control wa s utilized for the study. A dose lowering technique was utilized adhering to the principles of ALARA . CT DOSE: 237.88 mGy.cm FINDINGS: Pacer leads are partially imaged. Note is made of emphysema within visualized portions of t he lower lungs. Subpleural groundglass opacity and reticulation is similar to prior CT. No pneumatosi s, free air or portal venous gas is present. There is a small hiatal hernia. Probable hepatic steatos is. There are gallstones within the gallbladder. The gallbladder is mildly distended. There is no per icholecystic infiltration. A 1.8 cm left adrenal nodule is unchanged. The spleen, right adrenal gland and pancreas are unremarkable. There is no biliary or pancreatic ductal dilatation. A 3 mm calcifica tion within the right renal sinus is probably vascular however a nonobstructing calculus could appear similar. There are no ureteral calculi and there is no hydronephrosis. A 3.3 cm abdominal aortic ane urysm is similar to prior exam. There is extensive aortoiliac atherosclerotic plaque. The caliber and wall thickness of small and large bowel are normal. The appendix is normal. Bladder wall thickening is unchanged. There is no ascites or lymphadenopathy. No acute fracture or suspicious lesion is ident ified within visualized skeletal structures. IMPRESSION: 1. No bowel obstruction. No bowel wall thickening. Normal appendix. 2. Bladder wall thickening. This is similar to prior CT and likely chronic although could be correlat ed with urinalysis. 3. Emphysema. Subpleural groundglass opacities within the lower lungs which are similar to prior CT a nd favor interstitial lung disease. Superimposed viral pneumonia would be difficult to completely exc lude. 4. Cholelithiasis. No convincing evidence for acute cholecystitis. 5. No significant change in a 3.3 cm infrarenal abdominal aortic aneurysm. ACT 112: Negative or not required by law. Electronically signed by: Anil Guevara M.D. 06/29/2021 9:09 PM
[2021-06-29] MEDS ORDERED: POTASSIUM CHLORIDE PWD 20 MEQ PACK PO STA (21:32)
[2021-06-29] MEDS ORDERED: POTASSIUM CHLORIDE CRTAB 20 MEQ TABCR PO STA (21:35)
[2021-06-29] MEDS ORDERED: SODIUM CHLORIDE 0.9% 1000ML 1,000 ML IV SCH (21:45)
--- NOTE | 2021-06-29 23:30 | History & Physical Report ---
Date of Service June 29, 2021 Assessment & Plan (1) Hypokalemia: Plan: Secondary to poor p.o. intake from COVID-19 illness Oral thrush contributing to poor p.o. intake Patient nontoxic. Overwhelming anxiety, depression secondary to illness Patient currently not suicidal. hx CAD status post CABG SSS status post PPM PVD status post surgery hypertension, slight elevated hyperlipidemia on statin Rx COPD, pulmonary status at baseline past tobacco abuse OBS GMF Replace potassium, IVF Topical nystatin for oral thrush Psych consult Re: Overwhelming anxiety, depression PT OT eval DVT prophylaxis. Lovenox subcu Full code as per patient Text document was generated using [employer] voice recognition software. It may contain grammatical or spelling errors. Kindly contact undersigned for clarification of any documentation item in question. History of Present Illness Chief Complaint: Abdominal pain, COVID Primary Care Provider: William Rosario MD History obtained from patient and records. Medical history significant for CAD status post CABG, SSS status post PPM, PVD status post surgery, hypertension, hyperlipidemia, COPD, past tobacco abuse. Last confinement October 2016 under Interventional Cardiology service for PAD status post angiography with balloon stent placement. Patient has not been well for about 2 weeks. Runny nose, sore throat, cough productive of clear sputum and transient diarrhea symptoms. Poor appetite. No known recent COVID-19 contacts. Patient has not received COVID-19 vaccination. Patient seen at the ER on 2 occasions last week for symptoms. Patient found to be COVID-19 positive. Patient sent home from the ER on both visits. Patient complaining of bad taste and white patches in her mouth which makes her sick to swallow. Stomach upset with nausea. No emesis. No diarrhea. No chest pain, no SOB. Anxiety and depression worse since illness. Transient suicidal ideation. Patient worried about being alone at home and her daughter not being able to get to her. Patient worried of dying from the virus. Patient brought to ER by EMS. Medical History as above Surgical History : Cataracts surgery, CABG, PPM, vascular procedures, tonsillectomy Family History : AAA, heart disease, stroke Personal/Social history : Past tobacco abuse, occasional EtOH intake, retired [employer] Allergies Allergy/AdvReac Type Severity Reaction Status Date / Time Penicillins Allergy Intermediate ITCHY RASH Verified 06/29/21 18:46 ranitidine Allergy Intermediate rash Verified 06/29/21 18:46 levofloxacin [From Levaquin] Allergy Mild Rash Verified 06/29/21 18:46 doxycycline Allergy Unknown ON MED LIST Verified 06/29/21 18:46 amoxicillin AdvReac Intermediate SEVERE Verified 06/29/21 18:46 DIARRHEA cefadroxil AdvReac Mild Nausea Verified 06/29/21 18:46 Nydnttg-GNR-WgK Reductase AdvReac Mild DIARRHEA Verified 06/29/21 18:46 Inhibitor [Ltbmefo-Nve-Vpq Reductase Inhibitor] ANTIBIOTICS Allergy Unknown PER PT Uncoded 06/29/21 18:46 "ALLERGIC TO A LOT OF ANTIBIOTICS". Home Medications Medication Instructions Recorded Confirmed Type atorvastatin 40 mg tablet 40 mg PO QAM 07/05/18 06/29/21 History clopidogrel 75 mg tablet 75 mg PO QAM 07/05/18 06/29/21 History metoprolol succinate 50 mg 50 mg PO QAM 07/05/18 06/29/21 History tablet,extended release 24 hr acetaminophen 500 mg tablet 500 mg PO Q6H PRN 09/07/19 06/29/21 History (Tylenol Extra Strength) Past Med/Surg History Medical History (Updated 06/30/21 @ 15:55 by Rober Myers MD) Anxiety Heart disease Hypertension PAD (peripheral artery disease) Surgical History H/O heart bypass surgery Family History Other Family history non-contributory Social History Smoking Status: Never smoker Hx Alcohol Use: No Hx Substance Use: No Preferred Language: Faroese Communication Ability: Effective Cut Filer Required: No Beliefs That Will Affect Care: None Current Living Situation: Alone Other Information That Helps Us Care for You: No Feels Safe at Home: Yes Safety Concerns: Feels Safe At This Time Assistive Devices: Oxygen - Continuous Review of Systems Review of Systems: As per HPI, all 10 systems reviewed, all other ROS negative Physical Exam Physical Exam: GENERAL: Anxious, no respiratory distress SKIN: Normal color, warm HEENT: Bespectacled, Morris palpebral conjunctivae, no ptosis, dry buccal mucosa, white lesions noted over patient's buccal mucosa and posterior tongue, minimal pharyngeal wall congestion NECK : Supple, no tenderness CHEST : Decreased breath sounds, no tenderness HEART : RRR, systolic murmur ABDOMEN: Some distention, nontender EXTREMITIES : Minimal LE swelling, no LE tenderness, no other conspicuous deformities noted NEUROLOGIC : Coherent, no facial asymmetry, no other gross focality Results & Data Results & Data ([facility]) Vital Signs (Past 12 Hours) Vital Signs Temp Pulse Resp BP BP Pulse Ox 06/29/21 22:00 77 22 06/29/21 21:50 66 18 96 06/29/21 21:40 80 23 88 L 06/29/21 21:30 62 12 155/61 H 86 L 06/29/21 21:20 76 18 91 06/29/21 21:10 65 18 88 L 06/29/21 21:00 67 18 138/58 L 94 06/29/21 20:58 72 19 89 L 06/29/21 20:40 62 18 89 L 06/29/21 20:30 61 16 136/50 L 90 06/29/21 20:20 64 23 91 06/29/21 20:10 64 16 96 06/29/21 20:00 60 15 136/58 L 94 06/29/21 19:51 68 98 06/29/21 19:50 65 13 143/60 H 92 06/29/21 19:49 60 17 92 06/29/21 18:31 36.6 C 14 136/62 96 06/29/21 18:10 60 14 90 06/29/21 18:00 60 16 136/62 91 06/29/21 17:50 60 10 L 93 06/29/21 17:46 36.9 C 60 20 145/57 H 93 06/29/21 17:44 60 16 97 Laboratory Results Laboratory Results WBC 2.25 K/uL (4.8-10.8) L 06/29/21 19:56 RBC 4.26 M/uL (4.2-5.4) 06/29/21 19:56 Hgb 13.2 g/dL (12.0-16.0) 06/29/21 19:56 Hct 40.7 % (37-47) 06/29/21 19:56 MCV 95.5 fL (80-100) 06/29/21 19:56 MCH 31.0 pg (25-34) 06/29/21 19:56 MCHC 32.4 g/dL (32-36) 06/29/21 19:56 RDW Std Deviation 49.0 fL (36.4-46.3) H 06/29/21 19:56 RDW Coeff of Veda 14.0 % (11.5-14.5) 06/29/21 19:56 Plt Count 131 K/uL (130-400) 06/29/21 19:56 MPV 10.1 fL (7.4-10.4) 06/29/21 19:56 Immature Gran % (Auto) 0.0 % 06/29/21 19:56 Neut % (Auto) 57.8 % 06/29/21 19:56 Lymph % (Auto) 29.8 % 06/29/21 19:56 Jefferson % (Auto) 12.4 % 06/29/21 19:56 Eos % (Auto) 0.0 % 06/29/21 19:56 Baso % (Auto) 0.0 % 06/29/21 19:56 Neut # (Auto) 1.30 K/uL (1.4-6.5) L 06/29/21 19:56 Lymph # (Auto) 0.67 K/uL (1.2-3.4) L 06/29/21 19:56 Jefferson # (Auto) 0.28 K/uL (0.11-0.59) 06/29/21 19:56 Eos # (Auto) 0.00 K/uL (0-0.5) 06/29/21 19:56 Baso # (Auto) 0.00 K/uL (0-0.2) 06/29/21 19:56 Immature Gran # (Auto) 0.00 K/uL (0.00-0.02) 06/29/21 19:56 Sodium 139 mmol/L (136-145) 06/29/21 19:56 Potassium 3.2 mmol/L (3.5-5.1) L 06/29/21 19:56 Chloride 107 mmol/L (98-107) 06/29/21 19:56 Carbon Dioxide 24 mmol/L (21-32) 06/29/21 19:56 Anion Gap 8 (3-11) 06/29/21 19:56 BUN 9 mg/dl (6-23) 06/29/21 19:56 Creatinine 0.92 mg/dl (0.6-1.2) 06/29/21 19:56 Est Cr Clr Drug Dosing 39.0 ml/min 06/29/21 19:56 Est GFR ( Amer) 67.2 ml/min 06/29/21 19:56 Est GFR (Non-Af Amer) 58.0 ml/min 06/29/21 19:56 BUN/Creatinine Ratio 9.8 (10-20) L 06/29/21 19:56 Glucose 98 mg/dl (70-99(Fasting)) 06/29/21 19:56 Calcium 9.1 mg/dl (8.5-10.1) 06/29/21 19:56 Magnesium 1.8 mg/dl (1.7-2.4) 06/29/21 19:56 Total Bilirubin 0.5 mg/dl (0.2-1.0) 06/29/21 19:56 AST 30 U/L (13-39) 06/29/21 19:56 ALT 19 U/L (7-52) 06/29/21 19:56 Alkaline Phosphatase 73 U/L (34-104) 06/29/21 19:56 Total Protein 6.5 gm/dl (6.0-8.3) 06/29/21 19:56 Albumin 3.7 gm/dl (3.4-5.0) 06/29/21 19:56 Globulin 2.8 gm/dl (2.5-4.0) 06/29/21 19:56 Albumin/Globulin Ratio 1.3 (0.9-2) 06/29/21 19:56 Lipase 33 U/L (11-82) 06/29/21 19:56 Impressions Abdomen/Pelvis CT 06/29/21 19:27 CT OF THE ABDOMEN AND PELVIS WITH CONTRAST CLINICAL HISTORY: Lower abdominal pain; covid, no BM/gas x 3 days COMPARISON STUDY: CT of the abdomen and pelvis July 05, 2018. TECHNIQUE: Following IV administration of 94 mL of Optiray, axial images of the abdomen and pelvis were obtained from the lung bases to the proximal femurs. Images were reviewed in the axial, sagittal, and coronal planes. IV contrast was administered without complication. Automated exposure control was utilized for the study. A dose lowering technique was utilized adhering to the principles of ALARA. CT DOSE: 237.88 mGy.cm FINDINGS: Pacer leads are partially imaged. Note is made of emphysema within visualized portions of the lower lungs. Subpleural groundglass opacity and reticulation is similar to prior CT. No pneumatosis, free air or portal venous gas is present. There is a small hiatal hernia. Probable hepatic steatosis. There are gallstones within the gallbladder. The gallbladder is mildly distended. There is no pericholecystic infiltration. A 1.8 cm left adrenal nodule is unchanged. The spleen, right adrenal gland and pancreas are unremarkable. There is no biliary or pancreatic ductal dilatation. A 3 mm calcification within the right renal sinus is probably vascular however a nonobstructing calculus could appear similar. There are no ureteral calculi and there is no hydronephrosis. A 3.3 cm abdominal aortic aneurysm is similar to prior exam. There is extensive aortoiliac atherosclerotic plaque. The caliber and wall thickness of small and large bowel are normal. The appendix is normal. Bladder wall thickening is unchanged. There is no ascites or lymphadenopathy. No acute fracture or suspicious lesion is identified within visualized skeletal structures. IMPRESSION: 1. No bowel obstruction. No bowel wall thickening. Normal appendix. 2. Bladder wall thickening. This is similar to prior CT and likely chronic although could be correlated with urinalysis. 3. Emphysema. Subpleural groundglass opacities within the lower lungs which are similar to prior CT and favor interstitial lung disease. Superimposed viral pneumonia would be difficult to completely exclude. 4. Cholelithiasis. No convincing evidence for acute cholecystitis. 5. No significant change in a 3.3 cm infrarenal abdominal aortic aneurysm. ACT 112: Negative or not required by law. Electronically signed by: Anil Guevara M.D. 06/29/2021 9:09 PM
[2021-06-29] MEDS ORDERED: ACETAMINOPHEN 325 MG TAB PO PRN (23:35)
[2021-06-29] MEDS ORDERED: LACTATED RINGER'S 1,000 ML IV ONE (23:35)
[2021-06-30] MEDS ORDERED: PROMETHAZINE HCL 6.25 MG in SODIUM CHLORIDE 0.9% 50 ML IV PRN (01:53)
[2021-06-30 05:14] LABS: Hematocrit (blood only) 37.9 % (37-47); Lymphocytes # (auto) 0.58 K/uL (1.2-3.4); Lymphocytes % (auto) 30.4 %; Mean Corpuscular Hemoglobin 30.3 pg (25-34); Mean Corpuscular Hgb Conc 31.7 g/dL (32-36); Mean Corpuscular Volume 95.7 fL (80-100); Mean Platelet Volume 9.9 fL (7.4-10.4); Monocytes # (auto) 0.29 K/uL (0.11-0.59); Monocytes % (auto) 15.2 %; Neutrophils # (auto) 1.04 K/uL (1.4-6.5); Neutrophils % (auto) 54.4 %; Platelet Count 111 K/uL (130-400); RDW Standard Deviation 49.3 fL (36.4-46.3); Red Blood Count 3.96 M/uL (4.2-5.4); White Blood Count 1.91 K/uL (4.8-10.8)
[2021-06-30 05:37] LABS: Giant Platelets 1+
[2021-06-30 05:44] LABS: BUN Creatinine Ratio 8.6 (10-20); Calcium 7.9 mg/dl (8.5-10.1); Creatinine Clr Calc Pharmacy 44.3 ml/min; Est GFR (African American) 78.4 ml/min; Est GFR (Non-African American) 67.6 ml/min; Potassium 3.7 mmol/L (3.5-5.1)
[2021-06-30] MEDS ORDERED: Flu Vaccine-High Dose (Fluzone-HD) PF 65+ 0.7mL SYR IM ONE (06:30)
[2021-06-30] MEDS: CLOPIDOGREL BISULFATE 75 MG TAB PO SCH (08:33)
[2021-06-30] MEDS: NYSTATIN SUSP 500,000 U/5 ML UDC PO SCH ×4 (08:33→19:49)
[2021-06-30] MEDS: ATORVASTATIN 40 MG TAB PO SCH (08:33)
[2021-06-30] MEDS: ENOXAPARIN INJ 30 MG/0.3 ML SYR SQ SCH (08:33)
[2021-06-30] MEDS: METOPROLOL SUCC 50MG EXT REL TAB PO SCH (08:34)
[2021-06-30] MEDS ORDERED: ALBUTEROL HFA 8 GM INHALER INH PRN (09:09)
--- NOTE | 2021-06-30 14:06 | Communication Note ---
Date of Service: June 30, 2021 patient was boarding in ED with respiratory isolation pending transfer to the floor. Chart reviewed and communicated with nursing as patient felt not to be immediately appropriate for telehealth visit earlier today. She is reportedly quite anxious re: her ongoing COVID symptoms and belief that she may from COVID. Particularly uncomfortable due to poor swallowing/PO due to thrush. No currently on steroids. O2 sats were adequate in 2 previous trips to the ED. No psych history listed on chart. Full consult pending, I typically don't start new antidepressant medications for anxiety in the setting of acute COVID with resolving GI issues. Also try to avoid regular use of benzos due to risk of respiratory depression in COVID and risk of falls in elderly. If requires prn, assuming no significant delirium would suggest hydroxyzine 10- 25 mg q6 prn.
--- NOTE | 2021-06-30 15:10 | Hospitalist Progress Note ---
Date of Service June 30, 2021 Assessment & Plan (1) Hypokalemia: Plan: COVID-19 infection --Unvaccinated state --Ongoing symptoms for about 2 weeks --CXR:No acute cardiopulmonary disease. Saturating low 90s on room air Check procalcitonin, CRP Denies any respiratory symptoms Consider dexamethasone course if needed Expect oxygen sats in low 90s given history of COPD Leukopenia Thrombocytopenia No bleeding issues Monitor CBC Hypokalemia Secondary to GI losses Check stool studies if diarrhea reoccurs Replace electrolytes as needed Oral thrush contributing to poor p.o. intake Continue nystatin Anxiety, depression secondary to illness Patient lives alone Currently not on any medications at home Psychiatry consulted CAD S/P CABG SSS S/P PPM PVD s/p surgery Continue Plavix, statin, metoprolol Hyperlipidemia on statin COPD No signs of exacerbation Past tobacco abuse Monitor Generalized weakness Secondary to illness PT OT DVT Px: Lovenox SQ CODE STATUS Full code Admission and Anticipated Discharge Date Admission Date: June 29, 2021 Subjective Patient is seen and examined at bedside Diarrhea resolved as per patient States having minimal abdominal discomfort Denies any cough, shortness of breath, dizziness, nausea, abdominal pain Anxious during my encounter States feeling tired Offers no other complaints Review of Systems Review of Systems: All systems reviewed & are unremarkable except as noted in Subjective Physical Exam Physical Exam: Physical Exam: Vitals signs as noted above General Appearance:Moderately built and nourished, no apparent distress Head: normocephalic, Atraumatic Eyes: normal inspection, EOMI Neck: supple, Trachea midline Respiratory/Chest: Decreased breath sounds, CTA Cardiovascular: S1, S2, No murmur Abdomen/GI:Soft, Mild generalized tender, Bowel sounds present Extremities/Musculoskeletal:normal inspection, no edema Neurologic/Psych:AAOX3, grossly no focal neurological deficits Skin: normal color, warm Results & Data Results & Data ([facility]) Vital Signs (Past 12 Hours) Vital Signs Temp Pulse Resp BP Pulse Ox 06/30/21 14:03 37.0 C 65 18 102/53 L 90 06/30/21 11:17 93 06/30/21 08:00 63 18 138/58 L 95 06/30/21 03:00 37.2 C 60 20 129/59 L 92 Laboratory Results Short CBC 06/29/21 06/30/21 Range/Units 19:56 05:00 WBC 2.25 L 1.91 L (4.8-10.8) K/uL Hgb 13.2 12.0 (12.0-16.0) g/dL Hct 40.7 37.9 (37-47) % Plt Count 131 111 L (130-400) K/uL BMP 06/29/21 06/30/21 19:56 05:00 Sodium 139 140 Potassium 3.2 L 3.7 Chloride 107 113 H Carbon Dioxide 24 23 BUN 9 7 Creatinine 0.92 0.81 Glucose 98 86 Calcium 9.1 7.9 L Liver Function 06/29/21 Range/Units 19:56 Total Bilirubin 0.5 (0.2-1.0) mg/dl AST 30 (13-39) U/L ALT 19 (7-52) U/L Alkaline Phosphatase 73 (34-104) U/L Albumin 3.7 (3.4-5.0) gm/dl
[2021-07-01 06:56] LABS: Hematocrit (blood only) 40.5 % (37-47); Hemoglobin 12.8 g/dL (12.0-16.0); Mean Corpuscular Hemoglobin 30.8 pg (25-34); Mean Corpuscular Hgb Conc 31.6 g/dL (32-36); Mean Corpuscular Volume 97.4 fL (80-100); Mean Platelet Volume 9.9 fL (7.4-10.4); Platelet Count 134 K/uL (130-400); RDW Coefficient of Variation 14.2 % (11.5-14.5); RDW Standard Deviation 50.9 fL (36.4-46.3); Red Blood Count 4.16 M/uL (4.2-5.4); White Blood Count 1.85 K/uL (4.8-10.8)
[2021-07-01 07:23] LABS: Eosinophils # (auto) 0.01 K/uL (0-0.5); Eosinophils % (auto) 0.5 %; Immature Granulocytes # (auto) 0.01 K/uL (0.00-0.02); Immature Granulocytes % (auto) 0.5 %; Lymphocytes # (auto) 0.55 K/uL (1.2-3.4); Lymphocytes % (auto) 29.7 %; Monocytes # (auto) 0.29 K/uL (0.11-0.59); Monocytes % (auto) 15.7 %; Neutrophils # (auto) 0.99 K/uL (1.4-6.5); Neutrophils % (auto) 53.6 %
[2021-07-01 07:25] LABS: BUN Creatinine Ratio 8.4 (10-20); C Reactive Protein 0.61 mg/dl (0-0.5); Calcium 8.3 mg/dl (8.5-10.1); Creatinine Clr Calc Pharmacy 43.2 ml/min; Est GFR (African American) 76.1 ml/min; Est GFR (Non-African American) 65.7 ml/min; Potassium 3.6 mmol/L (3.5-5.1)
[2021-07-01] MEDS: ENOXAPARIN INJ 30 MG/0.3 ML SYR SQ SCH (08:40)
[2021-07-01] MEDS: NYSTATIN SUSP 500,000 U/5 ML UDC PO SCH ×4 (08:43→21:45)
[2021-07-01] MEDS: ATORVASTATIN 40 MG TAB PO SCH (08:44)
[2021-07-01] MEDS: CLOPIDOGREL BISULFATE 75 MG TAB PO SCH (08:44)
[2021-07-01] MEDS: METOPROLOL SUCC 50MG EXT REL TAB PO SCH (08:44)
--- NOTE | 2021-07-01 10:08 | XRay Report ---
XR chest 1V portable HISTORY: covid 19 infection, hypoxia, r/o pneumonia COMPARISON: Chest 06/25/2021. FINDINGS: No pneumothorax. No pleural effusions. The heart is top normal in size. Poststernotomy frazier ges and a right-sided dual-chamber pacemaker again noted. The upper lung zones are clear. Mild inters titial thickening at the lung bases persists. This favors chronic interstitial change. Otherwise, no new focal lung consolidations to suggest pneumonia. IMPRESSION: 1. No change in the mild interstitial thickening at the lung bases. This favors chronic interstitial change. 2. Otherwise, no new focal lung consolidations to suggest pneumonia. ACT 112: Negative or not required by law. Electronically signed by: Osvaldo Tomlin M.D. 07/01/2021 10:07 AM
[2021-07-01] MEDS: dexAMETHasone 6 MG in SYRINGE 0 ML IV SCH (10:59)
--- NOTE | 2021-07-01 11:04 | Psychiatric Consultation ---
Date of Consultation July 01, 2021 Psych History Identifying Data 81 yo female with acute onset of anxiety with COVID dx and isolation. History of Present Illness patient was hopeless in the context of dx, has interacted with liaison nurses and is essentially declining formal consultation/services. 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 Possible that she is more emotional as well from COVID respiratory treatments and steroids. Previously left recs for prn Vistaril should she desire prn. Given acute onset with COVID and patient preference would not typically start an SSRI at this time. She has consistently denied SI and does socialize as able at [address], just limited as multiple residents there have significant MH issues. if additional questions/concerns please contact Liaison. Allergies Allergy/AdvReac Type Severity Reaction Status Date / Time Penicillins Allergy Intermediate ITCHY RASH Verified 06/29/21 18:46 ranitidine Allergy Intermediate rash Verified 06/29/21 18:46 levofloxacin [From Levaquin] Allergy Mild Rash Verified 06/29/21 18:46 doxycycline Allergy Unknown ON MED LIST Verified 06/29/21 18:46 amoxicillin AdvReac Intermediate SEVERE Verified 06/29/21 18:46 DIARRHEA cefadroxil AdvReac Mild Nausea Verified 06/29/21 18:46 Xawbgzu-COQ-LsV Reductase AdvReac Mild DIARRHEA Verified 06/29/21 18:46 Inhibitor [Hozqeuq-Tnv-Jkg Reductase Inhibitor] ANTIBIOTICS Allergy Unknown PER PT Uncoded 06/29/21 18:46 "ALLERGIC TO A LOT OF ANTIBIOTICS". Home Medications Medication Instructions Recorded Confirmed Type atorvastatin 40 mg tablet 40 mg PO QAM 07/05/18 06/29/21 History clopidogrel 75 mg tablet 75 mg PO QAM 07/05/18 06/29/21 History metoprolol succinate 50 mg 50 mg PO QAM 07/05/18 06/29/21 History tablet,extended release 24 hr acetaminophen 500 mg tablet 500 mg PO Q6H PRN 09/07/19 06/29/21 History (Tylenol Extra Strength) Personal History Beliefs That Will Affect Care: None Patient History Medical History (Updated 06/30/21 @ 15:55 by Rober Myers MD) Anxiety Heart disease Hypertension PAD (peripheral artery disease) Surgical History H/O heart bypass surgery Family History Other Family history non-contributory Social History Smoking Status: Never smoker Hx Alcohol Use: No Hx Substance Use: No Preferred Language: Stateless Communication Ability: Effective Extrusion Manager Required: No Beliefs That Will Affect Care: None Current Living Situation: Alone Other Information That Helps Us Care for You: No Feels Safe at Home: Yes Safety Concerns: Feels Safe At This Time Assistive Devices: Oxygen - Continuous Physical Exam Vital Signs (Past 24 Hours): Last Vital Signs Temp 36.7 C 07/01/21 07:25 Pulse 64 07/01/21 07:25 Resp 18 07/01/21 07:25 BP 131/75 07/01/21 07:25 Pulse Ox 91 07/01/21 07:25 Results & Data ([facility]) Medications Administered Acetaminophen (Acetaminophen 325 Mg Tab) 650 mg PO Q6H PRN PRN Reason: Fever/pain Stop: 07/29/21 23:34 Last Admin: 06/30/21 15:34 Dose: 650 mg Documented by: [id number] Atorvastatin Calcium (Atorvastatin 40 Mg Tab) 40 mg PO [facility] Stop: 07/30/21 08:59 Last Admin: 07/01/21 08:44 Dose: 40 mg Documented by: [id number] Admin: 06/30/21 08:33 Dose: 40 mg Documented by: [id number] Clopidogrel Bisulfate (Clopidogrel Bisulfate 75 Mg Tab) 75 mg PO [facility] Stop: 07/30/21 08:59 Last Admin: 07/01/21 08:44 Dose: 75 mg Documented by: [id number] Admin: 06/30/21 08:33 Dose: 75 mg Documented by: [id number] Enoxaparin Sodium (Enoxaparin Inj 30 Mg/0.3 Ml Syr) 30 mg SQ [facility] Stop: 07/30/21 08:59 Last Admin: 07/01/21 08:40 Dose: 30 mg Documented by: [id number] Admin: 06/30/21 08:33 Dose: 30 mg Documented by: [id number] Dexamethasone 6 mg/ Syringe 1.5 mls @ 1 mls/min IV Q24H [facility] Stop: 07/31/21 09:59 Last Admin: 07/01/21 10:59 Dose: 1 mls/min Documented by: [id number] Metoprolol Succinate (Metoprolol Succ 50mg Ext Rel Tab) 50 mg PO QAM [facility] Stop: 07/30/21 08:59 Last Admin: 07/01/21 08:44 Dose: 50 mg Documented by: [id number] Admin: 06/30/21 08:34 Dose: 50 mg Documented by: [id number] Nystatin (Nystatin Susp 500,000 U/5 Ml Udc) 5 ml PO QID [facility] Stop: 07/10/21 08:59 Last Admin: 07/01/21 08:43 Dose: 5 ml Documented by: [id number] Admin: 06/30/21 19:49 Dose: 5 ml Documented by: [id number] Admin: 06/30/21 17:43 Dose: 5 ml Documented by: [id number] Admin: 06/30/21 14:09 Dose: 5 ml Documented by: [id number] Admin: 06/30/21 08:33 Dose: 5 ml Documented by: [id number] Coding Level of Care Code None
[2021-07-01] MEDS ORDERED: MAGNESIUM HYDROXIDE SUSP 30 ML UDC PO PRN (16:49)
[2021-07-01] MEDS ORDERED: LACTULOSE SYRUP 30 GM/45 ML UDP PO PRN (16:55)
--- NOTE | 2021-07-01 16:59 | Hospitalist Progress Note ---
Date of Service July 01, 2021 Assessment & Plan (1) COVID-19: Plan: COVID-19 infection --Unvaccinated state --Ongoing symptoms for about 2 weeks --CXR:No acute cardiopulmonary disease. 91-92% on 2 L NC CXR: 1. No change in the mild interstitial thickening at the lung bases. This favors chronic interstitial change. 2. Otherwise, no new focal lung consolidations to suggest pneumonia. Decadron 6mg IV started encouraged to use Incentive Spirometer Lovenox for DVT prophylaxis Leukopenia No bleeding issues ANC 99 check peripheral smear Hypokalemia Secondary to GI losses resolved Oral thrush contributing to poor p.o. intake Continue nystatin Constipation Milk of Mag, Lactulose monitor Anxiety, depression secondary to illness Patient lives alone Currently not on any medications at home Psychiatry consulted- does not recommend starting antidepressants at this time patient declines Ativan PRN will monitor closely CAD S/P CABG SSS S/P PPM PVD s/p surgery Continue Plavix, statin, metoprolol Hyperlipidemia on statin COPD No signs of exacerbation Past tobacco abuse Monitor Generalized weakness Secondary to illness PT OT DVT Px: Lovenox SQ CODE STATUS Full code plan of care discussed with patient in detail and at length all questions answered she is understanding, agreeable, comfortable with the plan of care Admission and Anticipated Discharge Date Admission Date: June 30, 2021 Subjective ff up for covid 19 infection, etc seen resting in bed, sitting up comfortable on 2 L states she feels ok overall except for constipation no chest pain, dyspnea, palpitations, dizziness no abdominal pain, nausea no fever/chills no leg pain no other symptoms Review of Systems Review of Systems: all noted and negative except for above Physical Exam Physical Exam: General- oriented x 3, not in distress, speaks in sentences with no effort or accessory muscle use Head- atraumatic Eyes- PERRL, EOMI, anicteric ENT- oropharynx clear Neck- supple, no JVD, no adenopathy, no thyromegaly; carotids +2/2, no bruits appreciated Lungs- clear to auscultation bilaterally, no rales/wheezes Heart- normal rate, regular rhythm; no murmur, no gallop, no rub appreciated Abdomen- normal bowel sounds, nondistended, soft, nontender, no masses or hepatosplenomegaly Extremities- no pretibial edema, no calf tenderness; peripheral pulses intact Neuro- alert, oriented x 3; CN 2-12 grossly intact; motor 5/5 bilaterally;sensation 100% on all extremities; no other gross focal neurologic deficits Skin- warm & dry Results & Data Results & Data ([facility]) Vital Signs (Past 12 Hours) Vital Signs Temp Pulse Resp BP Pulse Ox 07/01/21 15:08 36.7 C 67 18 111/63 92 07/01/21 11:55 36.8 C 65 18 120/60 91 07/01/21 07:25 36.7 C 64 18 131/75 91 all noted and reviewed including below
[2021-07-01] MEDS ORDERED: MAGNESIUM HYDROXIDE SUSP 30 ML UDC ONE (17:01)
[2021-07-02 06:31] LABS: Hematocrit (blood only) 42.4 % (37-47); Hemoglobin 13.6 g/dL (12.0-16.0); Lymphocytes # (auto) 0.83 K/uL (1.2-3.4); Lymphocytes % (auto) 21.1 %; Mean Corpuscular Hemoglobin 30.7 pg (25-34); Mean Corpuscular Hgb Conc 32.1 g/dL (32-36); Mean Corpuscular Volume 95.7 fL (80-100); Mean Platelet Volume 9.9 fL (7.4-10.4); Monocytes # (auto) 0.46 K/uL (0.11-0.59); Monocytes % (auto) 11.7 %; Neutrophils # (auto) 2.64 K/uL (1.4-6.5); Neutrophils % (auto) 67.2 %; Platelet Count 170 K/uL (130-400); RDW Coefficient of Variation 13.9 % (11.5-14.5); RDW Standard Deviation 48.6 fL (36.4-46.3); Red Blood Count 4.43 M/uL (4.2-5.4); White Blood Count 3.93 K/uL (4.8-10.8)
[2021-07-02 07:14] LABS: Creatinine Clr Calc Pharmacy 47.8 ml/min; Est GFR (Non-African American) 74.2 ml/min; Potassium 3.7 mmol/L (3.5-5.1)
[2021-07-02] MEDS: METOPROLOL SUCC 50MG EXT REL TAB PO SCH (08:47)
[2021-07-02] MEDS: ENOXAPARIN INJ 30 MG/0.3 ML SYR SQ SCH (08:47)
[2021-07-02] MEDS: ATORVASTATIN 40 MG TAB PO SCH (08:47)
[2021-07-02] MEDS: CLOPIDOGREL BISULFATE 75 MG TAB PO SCH (08:47)
[2021-07-02] MEDS: NYSTATIN SUSP 500,000 U/5 ML UDC PO SCH ×4 (08:47→20:25)
[2021-07-02] MEDS: dexAMETHasone 6 MG in SYRINGE 0 ML IV SCH (08:48)
--- NOTE | 2021-07-02 16:55 | Hospitalist Progress Note ---
Date of Service July 02, 2021 Assessment & Plan (1) COVID-19: Plan: COVID-19 infection --Unvaccinated state --Ongoing symptoms for about 2 weeks --CXR:No acute cardiopulmonary disease. 91-92% on 2 L NC CXR: 1. No change in the mild interstitial thickening at the lung bases. This favors chronic interstitial change. 2. Otherwise, no new focal lung consolidations to suggest pneumonia. now 97 % on room air Decadron 6mg IV Day 2 encouraged to use Incentive Spirometer Lovenox for DVT prophylaxis 2 step Exercise tomorrow Leukopenia No bleeding issues check peripheral smear: The findings are that of non-specific leukopenia secondary to neutropenia and lymphopenia. No overt morphologic abnormalities, such as features of MDS, are identified. Correlation with clinical history (i.e. medications associated with leukopenia) and other findings is recommended. improving likely from COVID infection Hypokalemia Secondary to GI losses resolved Oral thrush contributing to poor p.o. intake Continue nystatin Constipation Milk of Mag, Lactulose monitor Anxiety, depression secondary to illness Patient lives alone Currently not on any medications at home Psychiatry consulted- does not recommend starting antidepressants at this time patient declines Ativan PRN will monitor closely CAD S/P CABG SSS S/P PPM PVD s/p surgery Continue Plavix, statin, metoprolol Hyperlipidemia on statin COPD No signs of exacerbation Past tobacco abuse Monitor Generalized weakness Secondary to illness PT OT DVT Px: Lovenox SQ CODE STATUS Full code Disposition likely d/c home tomorrow 2 step exercise test upon d/c plan of care discussed with patient in detail and at length all questions answered she is understanding, agreeable, comfortable with the plan of care Admission and Anticipated Discharge Date Admission Date: June 30, 2021 Subjective ff up for COVID 19 infection, etc seen resting in bed, in good spirits on room air, comfortable states she feels much better today ambulating in the room with no dyspnea no cough no chest pain, dyspnea, palpitations, dizziness (+) BMs no other symptoms Review of Systems Review of Systems: all noted and negative except for above Physical Exam Physical Exam: all noted and negative except for above Results & Data Results & Data ([facility]) Vital Signs (Past 12 Hours) Vital Signs Temp Pulse Resp BP Pulse Ox 07/02/21 15:13 36.6 C 60 20 123/69 95 07/02/21 08:21 36.7 C 60 20 114/55 L 91 all noted and reviewed including below
[2021-07-02] MEDS ORDERED: COUGH DROP (SUGAR FREE) LOZ 24 LOZ/1 BOX BUCCAL ONE (17:11)
[2021-07-03] MEDS: NYSTATIN SUSP 500,000 U/5 ML UDC PO SCH ×2 (08:00→12:27)
[2021-07-03] MEDS: ATORVASTATIN 40 MG TAB PO SCH (08:00)
[2021-07-03] MEDS: CLOPIDOGREL BISULFATE 75 MG TAB PO SCH (08:00)
[2021-07-03] MEDS: METOPROLOL SUCC 50MG EXT REL TAB PO SCH (08:00)
[2021-07-03] MEDS: ENOXAPARIN INJ 30 MG/0.3 ML SYR SQ SCH (08:00)
--- NOTE | 2021-07-03 09:04 | XRay Report ---
SINGLE VIEW CHEST CLINICAL HISTORY: Covid infection. FINDINGS: An AP, portable, upright chest radiograph is compared to study dated 07/01/2021 and correlat ed with chest CT dated 06/01/2017. A 2-lead cardiac pacemaker is unchanged in position and partially obscures the right upper chest. The patient is status post midline sternotomy. A cardiac pacing leads are observed. The heart is enlarged noting atherosclerotic calcification of the thoracic aorta. The pulmonary vasculature is noncongested. Emphysema and chronic interstitial thickening is similar to pr evious. There is bibasilar scarring/atelectasis. No airspace consolidation or large pleural effusion is identified. No pneumothorax is seen. The skeletal structures are osteopenic. The bony thorax is gr ossly intact. IMPRESSION: 1. No airspace consolidation or pleural effusion is identified. 2. Cardiomegaly and cardiac pacemaker with no radiographic evidence of congestive failure. 3. Emphysema. ACT 112: Negative or not required by law. Electronically signed by: Rodolfo Licea M.D. 07/03/2021 9:03 AM
[2021-07-03] MEDS: dexAMETHasone 6 MG in SYRINGE 0 ML IV SCH (09:50)
--- NOTE | 2021-07-03 12:19 | Hospitalist Progress Note ---
Date of Service July 03, 2021 Assessment & Plan (1) COVID-19: Plan: COVID-19 infection --Unvaccinated state --Ongoing symptoms for about 2 weeks --CXR:No acute cardiopulmonary disease. 91-92% on 2 L NC CXR: 1. No change in the mild interstitial thickening at the lung bases. This favors chronic interstitial change. 2. Otherwise, no new focal lung consolidations to suggest pneumonia. given Decadron 6mg IV (3 days) O2 sats 90-94% no hypoxia < 90% with ambulation discharge on Decadron 6mg PO x 7 more days encouraged to use Incentive Spirometer Lovenox for DVT prophylaxis ff up with PCP in 1 week Leukopenia No bleeding issues check peripheral smear: The findings are that of non-specific leukopenia secondary to neutropenia and lymphopenia. No overt morphologic abnormalities, such as features of MDS, are identified. Correlation with clinical history (i.e. medications associated with leukopenia) and other findings is recommended. improving likely from COVID infection Hypokalemia Secondary to GI losses resolved Oral thrush contributing to poor p.o. intake improving Continue nystatin x 6 more days to complete 10 day course Constipation Milk of Mag, Lactulose PRN resolved Anxiety, depression secondary to illness Patient lives alone Currently not on any medications at home Psychiatry consulted- does not recommend starting antidepressants at this time patient declines Ativan PRN -- patient reassured in good spirits CAD S/P CABG SSS S/P PPM PVD s/p surgery Continue Plavix, statin, metoprolol Hyperlipidemia on statin COPD No signs of exacerbation Past tobacco abuse Monitor Generalized weakness Secondary to illness PT OT DVT Px: Lovenox SQ CODE STATUS Full code Disposition d/c home ff up with PCP in 1 week plan of care discussed with patient in detail and at length all questions answered she is understanding, agreeable, comfortable with the plan of care Admission and Anticipated Discharge Date Admission Date: June 30, 2021 Subjective ff up for covid 19 infection, etc seen resting in bed, comfortable in good spirits on room air states she feels much better overall no dyspnea, cough, chest pain, fever/chills, leg pain no abdominal pain, nausea no other symptoms states she is ready and would like to be discharged today Review of Systems Review of Systems: all noted and negative except for above Physical Exam Physical Exam: General- oriented x 3, not in distress, speaks in sentences with no effort or accessory muscle use Eyes- anicteric Neck- no JVD Lungs- clear breath sounds no crackles/wheezing bilaterally Heart- normal rate, regular rhythm; no murmurs Abdomen- normal bowel sounds, nondistended, soft, nontender Extremities- no pretibial edema, no calf tenderness Neuro- alert, oriented x 3; no gross focal neurologic deficits Skin- warm & dry Results & Data Results & Data ([facility]) Vital Signs (Past 12 Hours) Vital Signs Temp Pulse Pulse Pulse Pulse Pulse Resp 07/03/21 10:32 37.0 C 65 60 19 07/03/21 09:36 85 80 65 07/03/21 08:11 37.0 C 60 19 07/03/21 04:00 36.9 C 60 18 Resp Resp Resp BP Pulse Ox Pulse Ox Pulse Ox 07/03/21 10:32 120/60 90 07/03/21 09:36 18 18 18 92 93 07/03/21 08:11 120/60 90 07/03/21 04:00 130/71 93 Pulse Ox 07/03/21 10:32 07/03/21 09:36 94 07/03/21 08:11 07/03/21 04:00 all noted and reviewed including below
--- NOTE | 2021-07-03 15:43 | Discharge Summary ---
Date of Service July 03, 2021 Admission HPI Per Admitting Provider History obtained from patient and records. Medical history significant for CAD status post CABG, SSS status post PPM, PVD status post surgery, hypertension, hyperlipidemia, COPD, past tobacco abuse. Last confinement October 2016 under Interventional Cardiology service for PAD status post angiography with balloon stent placement. Patient has not been well for about 2 weeks. Runny nose, sore throat, cough productive of clear sputum and transient diarrhea symptoms. Poor appetite. No known recent COVID-19 contacts. Patient has not received COVID-19 vaccination. Patient seen at the ER on 2 occasions last week for symptoms. Patient found to be COVID-19 positive. Patient sent home from the ER on both visits. Patient complaining of bad taste and white patches in her mouth which makes her sick to swallow. Stomach upset with nausea. No emesis. No diarrhea. No chest pain, no SOB. Anxiety and depression worse since illness. Transient suicidal ideation. Patient worried about being alone at home and her daughter not being able to get to her. Patient worried of dying from the virus. Patient brought to ER by EMS. Medical History as above Surgical History : Cataracts surgery, CABG, PPM, vascular procedures, tonsillectomy Family History : AAA, heart disease, stroke Personal/Social history : Past tobacco abuse, occasional EtOH intake, retired [employer] Admission Exam (Per Admitting) Constitutional GENERAL: Anxious, no respiratory distress SKIN: Normal color, warm HEENT: Bespectacled, [place] palpebral conjunctivae, no ptosis, dry buccal mucosa, white lesions noted over patient's buccal mucosa and posterior tongue, minimal pharyngeal wall congestion NECK : Supple, no tenderness CHEST : Decreased breath sounds, no tenderness HEART : RRR, systolic murmur ABDOMEN: Some distention, nontender EXTREMITIES : Minimal LE swelling, no LE tenderness, no other conspicuous deformities noted NEUROLOGIC : Coherent, no facial asymmetry, no other gross focality Discharge Data Consultations 06/29/21 21:35 ED Decision to Admit Stat 06/29/21 23:35 Consult Psychiatry Routine Procedures Performed CT OF THE ABDOMEN AND PELVIS WITH CONTRAST CLINICAL HISTORY: Lower abdominal pain; covid, no BM/gas x 3 days COMPARISON STUDY: CT of the abdomen and pelvis July 05, 2018. TECHNIQUE: Following IV administration of 94 mL of Optiray, axial images of the abdomen and pelvis were obtained from the lung bases to the proximal femurs. Images were reviewed in the axial, sagittal, and coronal planes. IV contrast was administered without complication. Automated exposure control was utilized for the study. A dose lowering technique was utilized adhering to the principles of ALARA. CT DOSE: 237.88 mGy.cm FINDINGS: Pacer leads are partially imaged. Note is made of emphysema within visualized portions of the lower lungs. Subpleural groundglass opacity and reticulation is similar to prior CT. No pneumatosis, free air or portal venous gas is present. There is a small hiatal hernia. Probable hepatic steatosis. There are gallstones within the gallbladder. The gallbladder is mildly distended. There is no pericholecystic infiltration. A 1.8 cm left adrenal nodule is unchanged. The spleen, right adrenal gland and pancreas are unremarkable. There is no biliary or pancreatic ductal dilatation. A 3 mm calcification within the right renal sinus is probably vascular however a nonobstructing calculus could appear similar. There are no ureteral calculi and there is no hydronephrosis. A 3.3 cm abdominal aortic aneurysm is similar to prior exam. There is extensive aortoiliac atherosclerotic plaque. The caliber and wall thickness of small and large bowel are normal. The appendix is normal. Bladder wall thickening is unchanged. There is no ascites or lymphadenopathy. No acute fracture or suspicious lesion is identified within visualized skeletal structures. IMPRESSION: 1. No bowel obstruction. No bowel wall thickening. Normal appendix. 2. Bladder wall thickening. This is similar to prior CT and likely chronic although could be correlated with urinalysis. 3. Emphysema. Subpleural groundglass opacities within the lower lungs which are similar to prior CT and favor interstitial lung disease. Superimposed viral pneumonia would be difficult to completely exclude. 4. Cholelithiasis. No convincing evidence for acute cholecystitis. 5. No significant change in a 3.3 cm infrarenal abdominal aortic aneurysm. ACT 112: Negative or not required by law. Electronically signed by: Anil Guevara M.D. 06/29/2021 9:09 PM SINGLE VIEW CHEST CLINICAL HISTORY: Covid infection. FINDINGS: An AP, portable, upright chest radiograph is compared to study dated 07/01/2021 and correlated with chest CT dated 06/01/2017. A 2-lead cardiac pacemaker is unchanged in position and partially obscures the right upper chest. The patient is status post midline sternotomy. A cardiac pacing leads are observed. The heart is enlarged noting atherosclerotic calcification of the thoracic aorta. The pulmonary vasculature is noncongested. Emphysema and chronic interstitial thickening is similar to previous. There is bibasilar sc arring/atelectasis. No airspace consolidation or large pleural effusion is identified. No pneumothorax is seen. The skeletal structures are osteopenic. The bony thorax is grossly intact. IMPRESSION: 1. No airspace consolidation or pleural effusion is identified. 2. Cardiomegaly and cardiac pacemaker with no radiographic evidence of congestive failure. 3. Emphysema. ACT 112: Negative or not required by law. Electronically signed by: Rodolfo Licea M.D. 07/03/2021 9:03 AM Hospital Course (1) COVID-19: COVID-19 infection --Unvaccinated state --Ongoing symptoms for about 2 weeks --CXR:No acute cardiopulmonary disease. 91-92% on 2 L NC CXR: 1. No change in the mild interstitial thickening at the lung bases. This favors chronic interstitial change. 2. Otherwise, no new focal lung consolidations to suggest pneumonia. given Decadron 6mg IV (3 days) O2 sats 90-94% no hypoxia with ambulation discharge on Decadron 6mg PO x 7 more days encouraged to use Incentive Spirometer Lovenox for DVT prophylaxis ff up with PCP in 1 week Leukopenia No bleeding issues check peripheral smear: The findings are that of non-specific leukopenia secondary to neutropenia and lymphopenia. No overt morphologic abnormalities, such as features of MDS, are identified. Correlation with clinical history (i.e. medications associated with leukopenia) and other findings is recommended. improving likely from COVID infection Hypokalemia Secondary to GI losses resolved Oral thrush contributing to poor p.o. intake improving Continue nystatin x 6 more days to complete 10 day course Constipation Milk of Mag, Lactulose PRN resolved Anxiety, depression secondary to illness Patient lives alone Currently not on any medications at home Psychiatry consulted- does not recommend starting antidepressants at this time patient declines Ativan PRN -- patient reassured in good spirits CAD S/P CABG SSS S/P PPM PVD s/p surgery Continue Plavix, statin, metoprolol Hyperlipidemia on statin COPD No signs of exacerbation Past tobacco abuse Monitor Generalized weakness Secondary to illness PT OT DVT Px: Lovenox SQ CODE STATUS Full code Disposition d/c home ff up with PCP in 1 week plan of care discussed with patient in detail and at length all questions answered she is understanding, agreeable, comfortable with the plan of care
== END 2021-07-03 16:55 | disposition home health service (06) | DRG 178 ==
LOC: EDINP 17:39 → ED 17:39 → EDINP 06-30 01:31 → 3E 06-30 13:30 → SUATTDRO 06-30 18:56 → 2W 07-01 17:44

== ENCOUNTER 2022-01-26 18:24 | Inpatient (IN) ==
--- NOTE | 2022-01-26 18:44 | Emergency Department Note ---
Impression & Plan Acute UTI, Closed fracture of pubic ramus ADMIT ED Provider Note HPI: The patient is an 81-year-old female who presents emergency department the chief complaint of pelvic pain after a fall. Patient states that she fell while walking on the sidewalk earlier today when she tripped, states that she has had some pain in her right groin area since that has been limiting her ability to walk. Patient did return home with assistance to her apartment, states she was having difficulty ambulating in her apartment and therefore contacted EMS for transport to the ED. On arrival the patient is in no acute distress but does complain of focal complaint of pain in the right groin, she is able to flex her lower extremities bilaterally at the hips, denies any other focal complaint of pain. ROS: -MSK: Right groin pain *10 point review systems was conducted and is otherwise negative unless stated above *Outpatient medications and allergy history reviewed PE: General: Alert, NAD HEENT: Normocephalic, atraumatic Eyes: Extraocular eye movement is intact, no scleral erythema Pulmonary: Clear to auscultation bilaterally, no wheezing Cardio: Regular rate and rhythm GI: Abdomen is soft, nontender : No suprapubic tenderness MSK: No evidence of trauma or malformation of the extremities, no edema, there is pain to palpation over the lower abdomen/pubic rami Skin: No evidence of rash Neuro: Alert, no focal deficits Psychiatric: Cooperative an/syq 13 nav/c2 operator: - An order was placed for continuous cardiac monitoring - Patient was noted to be in sinus rhythm with rate of 70 EKG: Rate: 63 Rhythm: Normal sinus rhythm Intervals: Within normal limits ST changes: No ST elevation Time: 2049 Medical Decision Making: Patient presented to the emergency department with a chief complaint of a mechanical fall, complaint of pain in her right groin, given the location of the pain CT imaging was obtained that does show evidence of a nondisplaced superior pubic rami fracture in the right groin where the patient is having pain. There is a surrounding hematoma with mention of some partial compression of the urinary bladder. Patient is able to urinate on her own here in the ED. Given this finding I did obtain CT imaging of the abdomen pelvis with IV contrast that does not show any evidence of any other acute traumatic injuries. Patient otherwise appears well here in the ED, lab work shows stable hemoglobin, patient is not on any blood thinners. On my reassessment the patient is resting comfortably but states that she is having too much pain with movement and ambulation to go home. She states she does live by herself. I feel that she is appropriate for admission and PT/OT consultation, in addition there are findings concerning for possible cystitis on CT imaging of the abdomen pelvis, urinalysis is concerning for infection, will send for culture and patient will be started on IV Bactrim given multiple antibiotic allergies. Patient is in agreement for admission, case was discussed with the on-call hospitalist for [facility] and the patient was admitted in stable condition for further care. Diagnosis: 1. Pubic rami fracture, right-sided, nondisplaced 2. Hematoma pubic rami fracture 3. Urinary tract infection, acute 4. 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 Beliefs That Will Affect Care: None marital status: / Current Living Situation: Alone How many Children do You have: 3 Feels Safe at Home: Yes Assistive Devices: None Allergies Allergies Allergy/AdvReac Type Severity Reaction Status Date / Time Penicillins Allergy Intermediate ITCHY RASH Verified 01/26/22 18:42 ranitidine Allergy Intermediate rash Verified 01/26/22 18:42 levofloxacin [From Levaquin] Allergy Mild Rash Verified 06/29/21 18:46 doxycycline Allergy Unknown ON MED LIST Verified 06/29/21 18:46 amoxicillin AdvReac Intermediate SEVERE Verified 01/26/22 18:42 DIARRHEA cefadroxil AdvReac Mild Nausea Verified 01/26/22 18:42 Grwlnhn-LVU-PuP Reductase AdvReac Mild DIARRHEA Verified 01/26/22 18:42 Inhibitor [Dprbjnb-Ihy-Sgo Reductase Inhibitor] ANTIBIOTICS Allergy Unknown PER PT Uncoded 06/29/21 18:46 "ALLERGIC TO A LOT OF ANTIBIOTICS". Home Meds Home Medications Medication Instructions Recorded Confirmed atorvastatin 40 mg tablet 40 mg PO QAM 07/05/18 01/26/22 clopidogrel 75 mg tablet 75 mg PO QAM 07/05/18 01/26/22 metoprolol succinate 50 mg 50 mg PO QAM 07/05/18 01/26/22 tablet,extended release 24 hr acetaminophen 500 mg tablet 500 mg PO Q8 PRN Pain 09/07/19 01/26/22 (Tylenol Extra Strength) albuterol sulfate 90 mcg/actuation 2 puff inhalation Q4 PRN Wheezing 01/26/22 01/26/22 aerosol inhaler Results & Data (ED) Vital Signs Vital Signs - 24 hr 01/26/22 18:32 01/26/22 19:31 01/26/22 21:00 Temperature 36.8 C Temperature Source Oral Pulse Rate 70 Pulse Rate [Finger] 76 Pulse Rhythm Regular Pulse Rhythm [Finger] Regular Pulse Strength Normal Pulse Strength [Finger] Normal Respiratory Rate 20 18 Respiratory Effort / Characteristics Non-Labored Spontaneous Non-Labored Spontaneous Respiratory Depth Normal Normal Respiratory Pattern Regular Regular Blood Pressure 186/69 H Blood Pressure [Right Arm] 169/70 H Blood Pressure Mean 108 Blood Pressure Mean [Right Arm] 103 Blood Pressure Position Lying Blood Pressure Position [Right Arm] Pulse Oximetry 97 96 94 Oxygen Delivery Method Room Air Room Air Room Air Sepsis Recent Fever Within 48 Hours No Sepsis New/Unexplained Change in Mental Status N/A Sepsis Action Taken by Nursing No Action Required 01/26/22 21:00 01/26/22 23:00 Temperature Temperature Source Pulse Rate Pulse Rate [Finger] 77 71 Pulse Rhythm Pulse Rhythm [Finger] Regular Pulse Strength Pulse Strength [Finger] Normal Respiratory Rate 16 18 Respiratory Effort / Characteristics Non-Labored Spontaneous Respiratory Depth Normal Respiratory Pattern Regular Blood Pressure Blood Pressure [Right Arm] 177/69 H 161/70 H Blood Pressure Mean Blood Pressure Mean [Right Arm] 105 100 Blood Pressure Position Blood Pressure Position [Right Arm] Lying Pulse Oximetry 94 94 Oxygen Delivery Method Room Air Room Air Sepsis Recent Fever Within 48 Hours Sepsis New/Unexplained Change in Mental Status Sepsis Action Taken by Nursing Laboratory Data Result diagrams: 01/26/22 21:00 01/26/22 21:00 Lab Results 01/26/22 01/26/22 01/26/22 Range/Units 20:05 21:00 21:00 WBC 7.37 (4.8-10.8) K/ul RBC 4.68 (3.93-5.22) M/uL Hgb 14.3 (12.0-16.0) g/dl Hct 44.5 (34.1-44.9) % MCV 95.1 (80.0-100.0) fL MCH 30.6 (25.0-34.0) pg MCHC 32.1 (32.0-36.0) g/dL RDW Std Deviation 47.2 H (36.4-46.3) fL RDW Coeff of Veda 13.6 (11.5-14.5) % Plt Count 136 (130-400) K/uL MPV 9.8 (9.4-12.3) fL Immature Gran % (Auto) 0.5 % Neut % (Auto) 77.2 % Lymph % (Auto) 15.1 % [place] % (Auto) 6.4 % Eos % (Auto) 0.5 % Baso % (Auto) 0.3 % Neut # (Auto) 5.69 (1.4-6.5) K/uL Lymph # (Auto) 1.11 L (1.2-3.4) K/uL [place] # (Auto) 0.47 (0.24-0.82) K/uL Eos # (Auto) 0.04 (0-0.50) K/uL Baso # (Auto) 0.02 (0-0.2) K/uL Immature Gran # (Auto) 0.04 H (0.00-0.02) K/uL PT 10.7 (9.0-12.0) Seconds INR 1.0 (0.9-1.1) Sodium (136-145) mmol/L Potassium (3.5-5.1) mmol/L Chloride (98-107) mmol/L Carbon Dioxide (21-32) mmol/L Anion Gap (3-11) BUN (6-23) mg/dl Creatinine (0.6-1.2) mg/dl Est Cr Clr Drug Dosing ml/min Est GFR ( Amer) ml/min Est GFR (Non-Af Amer) ml/min BUN/Creatinine Ratio (10-20) Glucose (70-99(Fasting)) mg/dl Calcium (8.5-10.1) mg/dl Total Bilirubin (0.2-1.0) mg/dl AST (13-39) U/L ALT (7-52) U/L Alkaline Phosphatase (34-104) U/L Total Protein (6.0-8.3) gm/dl Albumin (3.4-5.0) gm/dl Globulin (2.5-4.0) gm/dl Albumin/Globulin Ratio (0.9-2) Urine Color Yellow Urine Appearance Clear (Clear) Urine pH 6.5 (4.5-7.5) Ur Specific [place] 1.007 (1.000-1.030) Urine Protein Negative (Negative) Urine Glucose (UA) Negative (Negative) Urine Ketones Negative (Negative) Urine Blood Trace H (Negative) Urine Nitrite Positive A (Negative) Urine Bilirubin Negative (Negative) Urine Urobilinogen Negative (Negative) Ur Leukocyte Esterase 2+ H (Negative) Urine WBC (Auto) 10-30 H (0-5) /hpf Urine RBC (Auto) 0-4 (0-4) /hpf U Hyaline Cast (Auto) 1-5 (0-5) /lpf U Epithel Cells (Auto) 20-30 H (0-5) /lpf Urine Bacteria (Auto) 4+ H (Negative) SARS-CoV-2, RNA, NAAT (NEGATIVE) 01/26/22 01/26/22 Range/Units 21:00 22:53 WBC (4.8-10.8) K/ul RBC (3.93-5.22) M/uL Hgb (12.0-16.0) g/dl Hct (34.1-44.9) % MCV (80.0-100.0) fL MCH (25.0-34.0) pg MCHC (32.0-36.0) g/dL RDW Std Deviation (36.4-46.3) fL RDW Coeff of Veda (11.5-14.5) % Plt Count (130-400) K/uL MPV (9.4-12.3) fL Immature Gran % (Auto) % Neut % (Auto) % Lymph % (Auto) % [place] % (Auto) % Eos % (Auto) % Baso % (Auto) % Neut # (Auto) (1.4-6.5) K/uL Lymph # (Auto) (1.2-3.4) K/uL [place] # (Auto) (0.24-0.82) K/uL Eos # (Auto) (0-0.50) K/uL Baso # (Auto) (0-0.2) K/uL Immature Gran # (Auto) (0.00-0.02) K/uL PT (9.0-12.0) Seconds INR (0.9-1.1) Sodium 140 (136-145) mmol/L Potassium 4.2 (3.5-5.1) mmol/L Chloride 109 H (98-107) mmol/L Carbon Dioxide 23 (21-32) mmol/L Anion Gap 8 (3-11) BUN 17 (6-23) mg/dl Creatinine 0.89 (0.6-1.2) mg/dl Est Cr Clr Drug Dosing 38.5 ml/min Est GFR ( Amer) 70.0 ml/min Est GFR (Non-Af Amer) 60.4 ml/min BUN/Creatinine Ratio 19.1 (10-20) Glucose 89 (70-99(Fasting)) mg/dl Calcium 10.0 (8.5-10.1) mg/dl Total Bilirubin 0.8 (0.2-1.0) mg/dl AST 18 (13-39) U/L ALT 12 (7-52) U/L Alkaline Phosphatase 101 (34-104) U/L Total Protein 6.8 (6.0-8.3) gm/dl Albumin 4.1 (3.4-5.0) gm/dl Globulin 2.7 (2.5-4.0) gm/dl Albumin/Globulin Ratio 1.5 (0.9-2) Urine Color Urine Appearance (Clear) Urine pH (4.5-7.5) Ur Specific [place] (1.000-1.030) Urine Protein (Negative) Urine Glucose (UA) (Negative) Urine Ketones (Negative) Urine Blood (Negative) Urine Nitrite (Negative) Urine Bilirubin (Negative) Urine Urobilinogen (Negative) Ur Leukocyte Esterase (Negative) Urine WBC (Auto) (0-5) /hpf Urine RBC (Auto) (0-4) /hpf U Hyaline Cast (Auto) (0-5) /lpf U Epithel Cells (Auto) (0-5) /lpf Urine Bacteria (Auto) (Negative) SARS-CoV-2, RNA, NAAT NEGATIVE (NEGATIVE) Administered Medications Discontinued Medications Sodium Chloride (Nss) 500 mls @ 999 mls/hr IV .Q31M GREG Stop: 01/26/22 21:15 Last Infusion: 01/26/22 21:30 Dose: 0 mls/hr Documented By: Admin: 01/26/22 20:58 Dose: 999 mls/hr Documented By: MIMI Ioversol (Optiray 300 100ml) 87 ml IV ONCE ONE Stop: 01/26/22 21:54 Last Admin: 01/26/22 21:53 Dose: 87 ml Documented By: STEFFANIE Trimethoprim/Sulfamethoxazole (Sulfamethoxazole/Trimethoprim Ds 800/160mg Tab) 1 tab PO NOW ONE Stop: 01/26/22 22:57 Last Admin: 01/26/22 23:17 Dose: Not Given Documented By: DAVID Imaging Data Radiologist's Impression: Pelvis CT 01/26/22 18:37 CT pelvis wo con HISTORY: 81 years-old Female fall acute pelvic pain status post fall COMPARISON: CT abdomen pelvis 06/29/2021 TECHNIQUE: Multiple axial CT images of the pelvis were obtained without the use of IV contrast. A dose lowering technique was used consistent with the principals of ALARA. FINDINGS: Study is degraded by respiratory motion artifact. Atherosclerosis of the aorta and iliac arteries. Partial distention of the urinary bladder with moderate wall thickening. There is a suggested 3.5 cm diverticulum noted along the superior aspect of the urinary bladder. Unremarkable appearance of the uterus. Moderate fecal retention. There is no bowel obstruction or bowel wall thickening. Stool-filled terminal ileum. Nonvisualization of the appendix. Small subcutaneous contusion lateral to the right hip. 5.2 x 3.5 x 3.8 cm hematoma is noted surrounding an acute minimally displaced fracture of the right superior pubic ramus which extends into the space of [place]. 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 No intra-articular fracture extension identified. No additional pelvic or proximal femoral fracture identified. There is mild to m oderate osteoarthritis of the hips. No avascular necrosis. There is no sacral insufficiency fracture identified. IMPRESSION: 1. Acute fracture of the right superior pubic ramus without significant displacement. There is an associated 5.2 cm surrounding hematoma extending into the space of [place] partially compressing the urinary bladder. 2. Small subcutaneous contusion lateral to the right hip. 3. Partial distention of the urinary bladder with circumferential wall thickening and bladder diverticulum noted. ACT 112: Negative or not required by law. The above report was generated using voice recognition software. It may contain grammatical, syntax or spelling errors. Electronically signed by: Trae Dailey M.D. 01/26/2022 7:50 PM Discharge Plan Visit Data Chief Complaint: Hip Pain Stated Complaint: Fall ED Provider: Armin Raygoza Discharge Problem: Acute UTI, Closed fracture of pubic ramus Patient Disposition: Admitted As Inpatient Forms Stand Alone Forms: [facility], Virtual Emergency Department, Important Visit Information Prescriptions Prescriptions: No Action atorvastatin 40 mg tablet 40 mg PO QAM metoprolol succinate 50 mg tablet extended release 24 hr 50 mg PO QAM clopidogrel 75 mg tablet 75 mg PO QAM acetaminophen [Tylenol Extra Strength] 500 mg Tablet 500 mg PO Q8 PRN (Reason: Pain) albuterol sulfate 90 mcg/actuation HFA aerosol inhaler 2 puff INHALATION Q4 PRN (Reason: Wheezing) Referrals Referrals: William Rosario MD [Primary Care Provider] -
--- NOTE | 2022-01-26 19:52 | CT Scan Report ---
CT pelvis wo con HISTORY: 81 years-old Female fall acute pelvic pain status post fall COMPARISON: CT abdomen pelvis 06/29/2021 TECHNIQUE: Multiple axial CT images of the pelvis were obtained without the use of IV contrast. A dos e lowering technique was used consistent with the principals of NIESHA. FINDINGS: Study is degraded by respiratory motion artifact. Atherosclerosis of the aorta and iliac arteries. Pa rtial distention of the urinary bladder with moderate wall thickening. There is a suggested 3.5 cm di verticulum noted along the superior aspect of the urinary bladder. Unremarkable appearance of the [place] parul. Moderate fecal retention. There is no bowel obstruction or bowel wall thickening. Stool-filled t erminal ileum. Nonvisualization of the appendix. Small subcutaneous contusion lateral to the right hi p. 5.2 x 3.5 x 3.8 cm hematoma is noted surrounding an acute minimally displaced fracture of the right s uperior pubic ramus which extends into the space of [place]. Moderate to severe degeneration of the p ubic sepsis with chondrocalcinosis. No intra-articular fracture extension identified. No additional p elvic or proximal femoral fracture identified. There is mild to moderate osteoarthritis of the hips. No avascular necrosis. There is no sacral insufficiency fracture identified. IMPRESSION: 1. Acute fracture of the right superior pubic ramus without significant displacement. There is an ass ociated 5.2 cm surrounding hematoma extending into the space of [place] partially compressing the uri nary bladder. 2. Small subcutaneous contusion lateral to the right hip. 3. Partial distention of the urinary bladder with circumferential wall thickening and bladder diverti culum noted. ACT 112: Negative or not required by law. The above report was generated using voice recognition software. It may contain grammatical, syntax o r spelling errors. Electronically signed by: Trae Dailey M.D. 01/26/2022 7:50 PM
[2022-01-26] MEDS ORDERED: SODIUM CHLORIDE 0.9% 500 ML IV SCH (20:45)
[2022-01-26 21:26] LABS: Basophils # (auto) 0.02 K/uL (0-0.2); Basophils % (auto) 0.3 %; Eosinophils # (auto) 0.04 K/uL (0-0.50); Eosinophils % (auto) 0.5 %; Hematocrit (blood only) 44.5 % (34.1-44.9); Hemoglobin 14.3 g/dl (12.0-16.0); Immature Granulocytes # (auto) 0.04 K/uL (0.00-0.02); Immature Granulocytes % (auto) 0.5 %; Lymphocytes # (auto) 1.11 K/uL (1.2-3.4); Lymphocytes % (auto) 15.1 %; Mean Corpuscular Hemoglobin 30.6 pg (25.0-34.0); Mean Corpuscular Hgb Conc 32.1 g/dL (32.0-36.0); Mean Corpuscular Volume 95.1 fL (80.0-100.0); Mean Platelet Volume 9.8 fL (9.4-12.3); Monocytes # (auto) 0.47 K/uL (0.24-0.82); Monocytes % (auto) 6.4 %; Neutrophils # (auto) 5.69 K/uL (1.4-6.5); Neutrophils % (auto) 77.2 %; Platelet Count 136 K/uL (130-400); RDW Coefficient of Variation 13.6 % (11.5-14.5); RDW Standard Deviation 47.2 fL (36.4-46.3); Red Blood Count 4.68 M/uL (3.93-5.22); White Blood Count 7.37 K/ul (4.8-10.8)
[2022-01-26 21:29] LABS: Appearance Urine Clear (Clear); Bacteria Urine Automated 4+ (Negative); Bilirubin Urine Negative (Negative); Blood Urine Trace (Negative); Color Urine Yellow; Epithelial Cell Urine Auto 20-30 /lpf (0-5); Glucose Urine UA Negative (Negative); Ketones Urine Negative (Negative); Leukocyte Esterase Urine 2+ (Negative); Nitrite Urine Positive (Negative); Protein Urine Negative (Negative); RBC Urine Automated 0-4 /hpf (0-4); Specific Gravity Urine 1.007 (1.000-1.030); Urobilinogen Urine Negative (Negative); pH Urine 6.5 (4.5-7.5)
[2022-01-26 21:31] LABS: Albumin Globulin Ratio 1.5 (0.9-2); Albumin Level 4.1 gm/dl (3.4-5.0); BUN Creatinine Ratio 19.1 (10-20); Bilirubin,Total 0.8 mg/dl (0.2-1.0); Creatinine Clr Calc Pharmacy 38.5 ml/min; Est GFR (Non-African American) 60.4 ml/min; Globulin 2.7 gm/dl (2.5-4.0); Potassium 4.2 mmol/L (3.5-5.1); Total Protein 6.8 gm/dl (6.0-8.3)
[2022-01-26 21:32] LABS: Prothrombin Time 10.7 Seconds (9.0-12.0)
[2022-01-26] MEDS ORDERED: OPTIRAY 300 100mL IV ONE (21:53)
[2022-01-26] MEDS ORDERED: SULFAMETHOXAZOLE/TRIMETHOPRIM DS 800/160MG TAB PO ONE (22:56)
[2022-01-26] MEDS ORDERED: SULFA IV ONE (23:01)
[2022-01-26] MEDS ORDERED: DILUENT IV ONE (23:01)
[2022-01-26] MEDS ORDERED: TRIMETH IV ONE (23:01)
[2022-01-26] MEDS ORDERED: AZTREONAM 1,000 MG in DEXTROSE 5% 100 ML IV STA (23:02)
[2022-01-26] MEDS ORDERED: METOPROLOL TARTRATE 25 MG TAB PO STA (23:23)
[2022-01-26] MEDS ORDERED: LACTATED RINGER'S 1,000 ML IV ONE (23:31)
--- NOTE | 2022-01-27 00:40 | History & Physical Report ---
Date of Service Late entry Patient seen January 26, 2022. Assessment & Plan (1) Complicated UTI (urinary tract infection): Plan: No sepsis for now Traumatic pelvic fracture/hematoma Patient currently hemodynamically stable hx CAD status post CABG hypertension, elevated secondary discomfort SSS status post PPM LE PVD status post surgery AAA with mural thrombus on initial CT read hyperlipidemia on statin Rx COPD, pulmonary status at baseline past tobacco abuse GMF Urine CS, Azactam Orthopedics consult Re: Pelvic fracture Anticipate conservative management for pelvic fracture Appropriate to hold Plavix for now given pelvic hematoma. Resume in a.m. if H&H stable Follow official CT abdomen pelvis result in a.m. PT OT eval DVT prophylaxis. Teds Re: Pelvic hematoma (SCDs contraindicated with history of LE PAD) Full code as per patient Text document was generated using [employer] voice recognition software. It may contain grammatical or spelling errors. Kindly contact undersigned for clarification of any documentation item in question. History of Present Illness Chief Complaint: Fall, groin pain Primary Care Provider: William Rosario MD History obtained from patient and records. Medical history significant for CAD status post CABG, SSS status post PPM, PVD status post surgery, hypertension, hyperlipidemia, COPD, past tobacco abuse. Last confinement June 2021 for COVID-19 illness. Patient was walking downtown she fell forward landing on the ground. Subsequent groin pain without head trauma. No chest pain, no SOB, no syncope, no LOC. Patient able to walk back to her apartment although in pain. She called EMS because of worsening discomfort. Patient brought to the ER for evaluation. 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 Allergies Allergy/AdvReac Type Severity Reaction Status Date / Time Penicillins Allergy Intermediate ITCHY RASH Verified 01/26/22 18:42 ranitidine Allergy Intermediate rash Verified 01/26/22 18:42 levofloxacin [From Levaquin] Allergy Mild Rash Verified 06/29/21 18:46 doxycycline Allergy Unknown ON MED LIST Verified 06/29/21 18:46 amoxicillin AdvReac Intermediate SEVERE Verified 01/26/22 18:42 DIARRHEA cefadroxil AdvReac Mild Nausea Verified 01/26/22 18:42 Apknufv-CLQ-YyC Reductase AdvReac Mild DIARRHEA Verified 01/26/22 18:42 Inhibitor [Lwlxpxw-Qmg-Eby Reductase Inhibitor] ANTIBIOTICS Allergy Unknown PER PT Uncoded 06/29/21 18:46 "ALLERGIC TO A LOT OF ANTIBIOTICS". Home Medications Medication Instructions Recorded Confirmed Type atorvastatin 40 mg tablet 40 mg PO QAM 07/05/18 01/26/22 History clopidogrel 75 mg tablet 75 mg PO QAM 07/05/18 01/26/22 History metoprolol succinate 50 mg 50 mg PO QAM 07/05/18 01/26/22 History tablet,extended release 24 hr acetaminophen 500 mg tablet 500 mg PO Q8 PRN Pain 09/07/19 01/26/22 History (Tylenol Extra Strength) albuterol sulfate 90 mcg/actuation 2 puff inhalation Q4 PRN Wheezing 01/26/22 01/26/22 History aerosol inhaler Past Med/Surg History Medical History (Updated 01/27/22 @ 01:21 by Francisco Bocanegra MD) Anxiety Heart disease Hypertension PAD (peripheral artery disease) Surgical History H/O heart bypass surgery Family History Other Family history non-contributory Social History Smoking Status: Never smoker Tobacco Type: Cigarettes Hx Alcohol Use: No Hx Substance Use: No Preferred Language: Icelandic Communication Ability: Effective Oceanologist Required: No Beliefs That Will Affect Care: None marital status: / Current Living Situation: Alone How many Children do You have: 3 Feels Safe at Home: Yes Safety Concerns: Feels Safe At This Time Assistive Devices: None Review of Systems Review of Systems: As per HPI, all other systems reviewed and negative Physical Exam Physical Exam: GENERAL: Pleasant, loquacious, no respiratory distress SKIN: Normal color, warm HEENT: Bespectacled, [place] palpebral conjunctivae, no ptosis, moist buccal mucosa NECK : Supple, no tenderness CHEST : Decreased breath sounds, no tenderness HEART : RRR, systolic murmur ABDOMEN: Some distention, suprapubic tenderness heart in the right EXTREMITIES : Minimal LE swelling with abrasions, no LE tenderness, contusion over right elbow NEUROLOGIC : Coherent, no facial asymmetry, gait and stance not assessed Results & Data Results & Data ([facility]) Vital Signs (Past 12 Hours) Vital Signs Temp Pulse Pulse Resp BP BP Pulse Ox 01/26/22 23:00 71 18 161/70 H 94 01/26/22 21:00 77 16 177/69 H 94 01/26/22 21:00 94 01/26/22 19:31 76 18 169/70 H 96 01/26/22 18:32 36.8 C 70 20 186/69 H 97 O2 Del Method 01/26/22 23:00 Room Air 01/26/22 21:00 Room Air 01/26/22 21:00 Room Air 01/26/22 19:31 Room Air 01/26/22 18:32 Room Air Laboratory Results Laboratory Results WBC 7.37 K/ul (4.8-10.8) 01/26/22 21:00 RBC 4.68 M/uL (3.93-5.22) 01/26/22 21:00 Hgb 14.3 g/dl (12.0-16.0) 01/26/22 21:00 Hct 44.5 % (34.1-44.9) 01/26/22 21:00 MCV 95.1 fL (80.0-100.0) 01/26/22 21:00 MCH 30.6 pg (25.0-34.0) 01/26/22 21:00 MCHC 32.1 g/dL (32.0-36.0) 01/26/22 21:00 RDW Std Deviation 47.2 fL (36.4-46.3) H 01/26/22 21:00 RDW Coeff of Veda 13.6 % (11.5-14.5) 01/26/22 21:00 Plt Count 136 K/uL (130-400) 01/26/22 21:00 MPV 9.8 fL (9.4-12.3) 01/26/22 21:00 Immature Gran % (Auto) 0.5 % 01/26/22 21:00 Neut % (Auto) 77.2 % 01/26/22 21:00 Lymph % (Auto) 15.1 % 01/26/22 21:00 [place] % (Auto) 6.4 % 01/26/22 21:00 Eos % (Auto) 0.5 % 01/26/22 21:00 Baso % (Auto) 0.3 % 01/26/22 21:00 Neut # (Auto) 5.69 K/uL (1.4-6.5) 01/26/22 21:00 Lymph # (Auto) 1.11 K/uL (1.2-3.4) L 01/26/22 21:00 [place] # (Auto) 0.47 K/uL (0.24-0.82) 01/26/22 21:00 Eos # (Auto) 0.04 K/uL (0-0.50) 01/26/22 21:00 Baso # (Auto) 0.02 K/uL (0-0.2) 01/26/22 21:00 Immature Gran # (Auto) 0.04 K/uL (0.00-0.02) H 01/26/22 21:00 PT 10.7 Seconds (9.0-12.0) 01/26/22 21:00 INR 1.0 (0.9-1.1) 01/26/22 21:00 Sodium 140 mmol/L (136-145) 01/26/22 21:00 Potassium 4.2 mmol/L (3.5-5.1) 01/26/22 21:00 Chloride 109 mmol/L (98-107) H 01/26/22 21:00 Carbon Dioxide 23 mmol/L (21-32) 01/26/22 21:00 Anion Gap 8 (3-11) 01/26/22 21:00 BUN 17 mg/dl (6-23) 01/26/22 21:00 Creatinine 0.89 mg/dl (0.6-1.2) 01/26/22 21:00 Est Cr Clr Drug Dosing 38.5 ml/min 01/26/22 21:00 Est GFR ( Amer) 70.0 ml/min 01/26/22 21:00 Est GFR (Non-Af Amer) 60.4 ml/min 01/26/22 21:00 BUN/Creatinine Ratio 19.1 (10-20) 01/26/22 21:00 Glucose 89 mg/dl (70-99(Fasting)) 01/26/22 21:00 Calcium 10.0 mg/dl (8.5-10.1) 01/26/22 21:00 Total Bilirubin 0.8 mg/dl (0.2-1.0) 01/26/22 21:00 AST 18 U/L (13-39) 01/26/22 21:00 ALT 12 U/L (7-52) 01/26/22 21:00 Alkaline Phosphatase 101 U/L (34-104) 01/26/22 21:00 Total Protein 6.8 gm/dl (6.0-8.3) 01/26/22 21:00 Albumin 4.1 gm/dl (3.4-5.0) 01/26/22 21:00 Globulin 2.7 gm/dl (2.5-4.0) 01/26/22 21:00 Albumin/Globulin Ratio 1.5 (0.9-2) 01/26/22 21:00 Urine Color Yellow 01/26/22 20:05 Urine Appearance Clear (Clear) 01/26/22 20:05 Urine pH 6.5 (4.5-7.5) 01/26/22 20:05 Ur Specific Em[place] 1.007 (1.000-1.030) 01/26/22 20:05 Urine Protein Negative (Negative) 01/26/22 20:05 Urine Glucose (UA) Negative (Negative) 01/26/22 20:05 Urine Ketones Negative (Negative) 01/26/22 20:05 Urine Blood Trace (Negative) H 01/26/22 20:05 Urine Nitrite Positive (Negative) A 01/26/22 20:05 Urine Bilirubin Negative (Negative) 01/26/22 20:05 Urine Urobilinogen Negative (Negative) 01/26/22 20:05 Ur Leukocyte Esterase 2+ (Negative) H 01/26/22 20:05 Urine WBC (Auto) 10-30 /hpf (0-5) H 01/26/22 20:05 Urine RBC (Auto) 0-4 /hpf (0-4) 01/26/22 20:05 U Hyaline Cast (Auto) 1-5 /lpf (0-5) 01/26/22 20:05 U Epithel Cells (Auto) 20-30 /lpf (0-5) H 01/26/22 20:05 Urine Bacteria (Auto) 4+ (Negative) H 01/26/22 20:05 SARS-CoV-2, RNA, NAAT NEGATIVE (NEGATIVE) 01/26/22 22:[address] 01/26/22 18:37 CT pelvis wo con HISTORY: 81 years-old Female fall acute pelvic pain status post fall COMPARISON: CT abdomen pelvis 06/29/2021 TECHNIQUE: Multiple axial CT images of the pelvis were obtained without the use of IV contrast. A dose lowering technique was used consistent with the principals of ALA. FINDINGS: Study is degraded by respiratory motion artifact. Atherosclerosis of the aorta and iliac arteries. Partial distention of the urinary bladder with moderate wall thickening. There is a suggested 3.5 cm diverticulum noted along the superior aspect of the urinary bladder. Unremarkable appearance of the uterus. Moderate fecal retention. There is no bowel obstruction or bowel wall thickening. Stool- filled terminal ileum. Nonvisualization of the appendix. Small subcutaneous contusion lateral to the right hip. 5.2 x 3.5 x 3.8 cm hematoma is noted surrounding an acute minimally displaced fracture of the right superior pubic ramus which extends into the space of Retzius. 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 No intra-articular fracture extension identified. No additional pelvic or proximal femoral fracture identified. There is mild to moderate osteoarthritis of the hips. No avascular necrosis. There is no sacral insufficiency fracture identified. IMPRESSION: 1. Acute fracture of the right superior pubic ramus without significant displacement. There is an associated 5.2 cm surrounding hematoma extending into the space of Retzius partially compressing the urinary bladder. 2. Small subcutaneous contusion lateral to the right hip. 3. Partial distention of the urinary bladder with circumferential wall thickening and bladder diverticulum noted. ACT 112: Negative or not required by law. The above report was generated using voice recognition software. It may contain grammatical, syntax or spelling errors. Electronically signed by: Trae Dailey M.D. 01/26/2022 7:[address] abdomen pelvis initial read: No evidence of acute intra-abdominal pathology. Dependent sludge within the unremarkable gallbladder. The common bile duct is prominent without evidence of obstructing lesion. No evidence of pancreatitis. No evidence of hydronephrosis or urinarycalculi. No evidence of appendicitis. There is a focal aneurysmof the infrarenal abdominal measuring 31 mmin diameter with moderate amount of mural thrombus and moderate calcified atherosclerotic disease. No evidence of free air, free fluid or colitis. Moderate disc degeneration at L4-5. Chronic interstitial scarring of the visualized lung bases. Comparison made to prior CT scan and pelvis [id number] EKG as per my interpretation : Rate 65, NSR, normal axis, diffuse T wave abnormalities Code Status & VTE Plan VTE Prophylaxis Plan VTE Prophylaxis will be ordered: Yes
[2022-01-27] MEDS ORDERED: PROMETHAZINE HCL 6.25 MG in SODIUM CHLORIDE 0.9% 50 ML IV PRN (00:43)
[2022-01-27] MEDS ORDERED: MoRPHine SULFATE 2 MG/ML CARP IV PRN (00:43)
[2022-01-27] MEDS ORDERED: traMADol HCL 50 MG TABLET PO PRN (00:43)
[2022-01-27] MEDS ORDERED: lisinopril 2.5 MG TAB PO ONE (01:57)
[2022-01-27] MEDS: ACETAMINOPHEN 325 MG TAB PO PRN ×2 (03:08→14:35)
--- NOTE | 2022-01-27 07:01 | Orthopedic Consultation ---
Date of Consultation January 27, 2022 Assessment & Plan (1) Closed fracture of pubic ramus: Present on Admission?: Yes Plan IMPRESSION: Non-displaced, closed, right superior Rami fracture, initial visit. PLAN: Will treat non-operatively. She was relieved that she did not need surgery. WBAT with walker or IV pole and assistance as needed. PT/OT Ice to right hip / anterior pelvis. Continue pain control: Tylenol, Aleve; Tramadol for breakthrough pain Continue care per primary service. Follow-up in office with x-rays AP pelvis and inlet & outlet views in 2 weeks, after discharge. Please re-call if any further Ortho issues arise. History of Present Illness Reason for Consultation: Right Pubic Rami fracture Requesting Physician: Dez Winn MD Attending Physician: Yuriy Montelongo MD History of Present Illness 81 year old female ground level fall while walking yesterday, injuring her groin. She was brought to the ED and was admitted for UTI and determine to have a right pubic rami fracture. I was consulted to evaluate and treat the right pubic rami fracture. She has been able to ambulate with walker and IV pole with acceptable pain. Allergies Allergy/AdvReac Type Severity Reaction Status Date / Time Penicillins Allergy Intermediate ITCHY RASH Verified 01/26/22 18:42 ranitidine Allergy Intermediate rash Verified 01/26/22 18:42 levofloxacin [From Levaquin] Allergy Mild Rash Verified 06/29/21 18:46 doxycycline Allergy Unknown ON MED LIST Verified 06/29/21 18:46 amoxicillin AdvReac Intermediate SEVERE Verified 01/26/22 18:42 DIARRHEA cefadroxil AdvReac Mild Nausea Verified 01/26/22 18:42 Itaslhp-LDW-SpH Reductase AdvReac Mild DIARRHEA Verified 01/26/22 18:42 Inhibitor [Kjjeapo-Xlb-Ujp Reductase Inhibitor] ANTIBIOTICS Allergy Unknown PER PT Uncoded 06/29/21 18:46 "ALLERGIC TO A LOT OF ANTIBIOTICS". Home Medications Medication Instructions Recorded Confirmed Type atorvastatin 40 mg tablet 40 mg PO QAM 07/05/18 01/26/22 History clopidogrel 75 mg tablet 75 mg PO QAM 07/05/18 01/26/22 History metoprolol succinate 50 mg 50 mg PO QAM 07/05/18 01/26/22 History tablet,extended release 24 hr acetaminophen 500 mg tablet 500 mg PO Q8 PRN Pain 09/07/19 01/26/22 History (Tylenol Extra Strength) albuterol sulfate 90 mcg/actuation 2 puff inhalation Q4 PRN Wheezing 01/26/22 01/26/22 History aerosol inhaler Patient History Medical History Anxiety Heart disease Hypertension PAD (peripheral artery disease) Surgical History H/O heart bypass surgery Family History Other Family history non-contributory Social History Smoking Status: Never smoker Tobacco Type: Cigarettes Hx Alcohol Use: No Hx Substance Use: No Preferred Language: Romansh Communication Ability: Effective R D Engineer Required: No Beliefs That Will Affect Care: None marital status: / Current Living Situation: Alone How many Children do You have: 3 Feels Safe at Home: Yes Safety Concerns: Feels Safe At This Time Assistive Devices: None Review of Systems Review of Systems: All systems reviewed & are unremarkable except as noted in HPI & below Physical Exam Physical Exam: BLE: Sensation to light touch intact distally. 2+ PT pulses. Motor to quad, hamstring, gastroc/Soleus, Tib Ant, EHL are intact. No pain with full ROM of the hips. + tenderness to palpation over pubic symphysis. Results & Data ([facility]) Vital Signs (Past 12 Hours) Vital Signs Temp Pulse Resp BP Pulse Ox Pulse Ox O2 Del Method 01/27/22 03:24 68 132/69 01/27/22 01:33 36.7 C 68 20 184/67 H 100 Room Air 01/27/22 00:43 36.7 C 68 20 184/67 H 100 Room Air 01/27/22 00:43 100 01/26/22 23:00 71 18 161/70 H 94 Room Air 01/26/22 21:00 77 16 177/69 H 94 Room Air 01/26/22 21:00 94 Room Air 01/26/22 19:31 76 18 169/70 H 96 Room Air O2 Del Method 01/27/22 03:24 01/27/22 01:33 01/27/22 00:43 01/27/22 00:43 Room Air 01/26/22 23:00 01/26/22 21:00 01/26/22 21:00 01/26/22 19:31 Diagnostic Findings Laboratory Results WBC 7.37 K/ul (4.8-10.8) 01/26/22 21:00 RBC 4.68 M/uL (3.93-5.22) 01/26/22 21:00 Hgb 14.3 g/dl (12.0-16.0) 01/26/22 21:00 Hct 44.5 % (34.1-44.9) 01/26/22 21:00 MCV 95.1 fL (80.0-100.0) 01/26/22 21:00 MCH 30.6 pg (25.0-34.0) 01/26/22 21:00 MCHC 32.1 g/dL (32.0-36.0) 01/26/22 21:00 RDW Std Deviation 47.2 fL (36.4-46.3) H 01/26/22 21:00 RDW Coeff of Veda 13.6 % (11.5-14.5) 01/26/22 21:00 Plt Count 136 K/uL (130-400) 01/26/22 21:00 MPV 9.8 fL (9.4-12.3) 01/26/22 21:00 Immature Gran % (Auto) 0.5 % 01/26/22 21:00 Neut % (Auto) 77.2 % 01/26/22 21:00 Lymph % (Auto) 15.1 % 01/26/22 21:00 [place] % (Auto) 6.4 % 01/26/22 21:00 Eos % (Auto) 0.5 % 01/26/22 21:00 Baso % (Auto) 0.3 % 01/26/22 21:00 Neut # (Auto) 5.69 K/uL (1.4-6.5) 01/26/22 21:00 Lymph # (Auto) 1.11 K/uL (1.2-3.4) L 01/26/22 21:00 [place] # (Auto) 0.47 K/uL (0.24-0.82) 01/26/22 21:00 Eos # (Auto) 0.04 K/uL (0-0.50) 01/26/22 21:00 Baso # (Auto) 0.02 K/uL (0-0.2) 01/26/22 21:00 Immature Gran # (Auto) 0.04 K/uL (0.00-0.02) H 01/26/22 21:00 PT 10.7 Seconds (9.0-12.0) 01/26/22 21:00 INR 1.0 (0.9-1.1) 01/26/22 21:00 Sodium 140 mmol/L (136-145) 01/26/22 21:00 Potassium 4.2 mmol/L (3.5-5.1) 01/26/22 21:00 Chloride 109 mmol/L (98-107) H 01/26/22 21:00 Carbon Dioxide 23 mmol/L (21-32) 01/26/22 21:00 Anion Gap 8 (3-11) 01/26/22 21:00 BUN 17 mg/dl (6-23) 01/26/22 21:00 Creatinine 0.89 mg/dl (0.6-1.2) 01/26/22 21:00 Est Cr Clr Drug Dosing 38.5 ml/min 01/26/22 21:00 Est GFR ( Amer) 70.0 ml/min 01/26/22 21:00 Est GFR (Non-Af Amer) 60.4 ml/min 01/26/22 21:00 BUN/Creatinine Ratio 19.1 (10-20) 01/26/22 21:00 Glucose 89 mg/dl (70-99(Fasting)) 01/26/22 21:00 Calcium 10.0 mg/dl (8.5-10.1) 01/26/22 21:00 Total Bilirubin 0.8 mg/dl (0.2-1.0) 01/26/22 21:00 AST 18 U/L (13-39) 01/26/22 21:00 ALT 12 U/L (7-52) 01/26/22 21:00 Alkaline Phosphatase 101 U/L (34-104) 01/26/22 21:00 Total Protein 6.8 gm/dl (6.0-8.3) 01/26/22 21:00 Albumin 4.1 gm/dl (3.4-5.0) 01/26/22 21:00 Globulin 2.7 gm/dl (2.5-4.0) 01/26/22 21:00 Albumin/Globulin Ratio 1.5 (0.9-2) 01/26/22 21:00 Urine Color Yellow 01/26/22 20:05 Urine Appearance Clear (Clear) 01/26/22 20:05 Urine pH 6.5 (4.5-7.5) 01/26/22 20:05 Ur Specific [place] 1.007 (1.000-1.030) 01/26/22 20:05 Urine Protein Negative (Negative) 01/26/22 20:05 Urine Glucose (UA) Negative (Negative) 01/26/22 20:05 Urine Ketones Negative (Negative) 01/26/22 20:05 Urine Blood Trace (Negative) H 01/26/22 20:05 Urine Nitrite Positive (Negative) A 01/26/22 20:05 Urine Bilirubin Negative (Negative) 01/26/22 20:05 Urine Urobilinogen Negative (Negative) 01/26/22 20:05 Ur Leukocyte Esterase 2+ (Negative) H 01/26/22 20:05 Urine WBC (Auto) 10-30 /hpf (0-5) H 01/26/22 20:05 Urine RBC (Auto) 0-4 /hpf (0-4) 01/26/22 20:05 U Hyaline Cast (Auto) 1-5 /lpf (0-5) 01/26/22 20:05 U Epithel Cells (Auto) 20-30 /lpf (0-5) H 01/26/22 20:05 Urine Bacteria (Auto) 4+ (Negative) H 01/26/22 20:05 SARS-CoV-2, RNA, NAAT NEGATIVE (NEGATIVE) 01/26/22 22:[address] 01/26/22 18:37 CT pelvis wo con HISTORY: 81 years-old Female fall acute pelvic pain status post fall COMPARISON: CT abdomen pelvis 06/29/2021 TECHNIQUE: Multiple axial CT images of the pelvis were obtained without the use of IV contrast. A dose lowering technique was used consistent with the principals of NIESHA. FINDINGS: Study is degraded by respiratory motion artifact. Atherosclerosis of the aorta and iliac arteries. Partial distention of the urinary bladder with moderate wall thickening. There is a suggested 3.5 cm diverticulum noted along the superior aspect of the urinary bladder. Unremarkable appearance of the uterus. Moderate fecal retention. There is no bowel obstruction or bowel wall thickening. Stool- filled terminal ileum. Nonvisualization of the appendix. Small subcutaneous contusion lateral to the right hip. 5.2 x 3.5 x 3.8 cm hematoma is noted surrounding an acute minimally displaced fracture of the right superior pubic ramus which extends into the space of Retzius. 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 No intra-articular fracture extension identified. No additional pelvic or proximal femoral fracture identified. There is mild to moderate osteoarthritis of the hips. No avascular necrosis. There is no sacral insufficiency fracture identified. IMPRESSION: 1. Acute fracture of the right superior pubic ramus without significant displacement. There is an associated 5.2 cm surrounding hematoma extending into the space of Retzius partially compressing the urinary bladder. 2. Small subcutaneous contusion lateral to the right hip. 3. Partial distention of the urinary bladder with circumferential wall thickening and bladder diverticulum noted. ACT 112: Negative or not required by law. The above report was generated using voice recognition software. It may contain grammatical, syntax or spelling errors. Electronically signed by: Trae Dailey M.D. 01/26/2022 7:50 PM (1) Closed fracture of pubic ramus Encounter type: initial encounter Laterality: right Qualified Code(s): S32.591A - Other specified fracture of right pubis, initial encounter for closed fracture
--- NOTE | 2022-01-27 08:08 | CT Scan Report ---
ABDOMEN AND PELVIS CT WITH IV CONTRAST CT DOSE: 245.02 mGy.cm HISTORY: Fall, pelvic fx with hematoma TECHNIQUE: Multiaxial CT images of the abdomen and pelvis were performed following the use of intrave nous contrast. A dose lowering technique was utilized adhering to the principles of ALARA. COMPARISON STUDY: Pelvis CT 01/26/2022. Abdomen and pelvis CT 06/29/2021. FINDINGS: Redemonstration of the nondisplaced fracture within the medial aspect of the right superior pubic ramus. There is a surrounding soft tissue hematoma best seen image 320 which measures approxim ately 4.9 x 3.5 cm. This is similar to the prior study. This results in mild mass effect along the ri ght anterior bladder wall. There is also a small amount of hemorrhage within the right space of Retzi us. Mild chronic interstitial thickening at the lung bases. A 6 mm nodule within the left lower lobe. This is best seen image 15. No pneumoperitoneum. No pneumatosis. Partially visualized pacemaker wire s are noted. Mild circumferential thickening of the distal esophagus, unchanged. There is a small div erticulum at the second portion of the duodenum. Cholelithiasis. No gallbladder wall thickening. The liver, spleen, and pancreas are unremarkable. Mild nodular thickening of the adrenal glands, unchange d. Calcifications within the renal sinuses appear to be vascular. Moderate bilateral cortical renal t hinning. No hydronephrosis. The main portal vein is patent. No retroperitoneal lymphadenopathy. There is a 3.1 cm infrarenal abdominal aortic aneurysm. No pelvic free fluid. The uterus and ovaries are u nremarkable. No bowel wall thickening or obstruction. Normal appendix. Mild bladder wall thickening, unchanged. IMPRESSION: 1. No significant change in the nondisplaced fracture within the right superior pubic ramus with a whelan rrounding 4.9 x 3.5 cm hematoma. There is also small amount of hemorrhage within the right space of R etzius resulting in mild mass effect along the right anterior bladder wall. 2. A 6 mm nodule within the left lower lobe. This is new from the prior studies. [address] fol low-up recommended to ensure stability. 3. Cholelithiasis. 4. Mild bladder wall thickening, unchanged. 5. Additional findings as described above. ACT 112: Positive. There are findings on this exam that require communication between the performing entity and the patient following Patient Test Result Information Act ([place] Act 112) guidelines. Electronically signed by: Osvaldo Tomlin M.D. 01/27/2022 8:05 AM
[2022-01-27] MEDS: AZTREONAM 1,000 MG in DEXTROSE 5% 100 ML IV SCH ×2 (08:11→16:23)
[2022-01-27] MEDS: ATORVASTATIN 40 MG TAB PO SCH (08:12)
[2022-01-27] MEDS: METOPROLOL SUCC 50MG EXT REL TAB PO SCH (08:12)
[2022-01-27 09:23] LABS: Hematocrit (blood only) 41.4 % (34.1-44.9); Hemoglobin 13.5 g/dl (12.0-16.0); Mean Corpuscular Hemoglobin 30.8 pg (25.0-34.0); Mean Corpuscular Hgb Conc 32.6 g/dL (32.0-36.0); Mean Corpuscular Volume 94.3 fL (80.0-100.0); Mean Platelet Volume 9.7 fL (9.4-12.3); Platelet Count 147 K/uL (130-400); RDW Coefficient of Variation 13.8 % (11.5-14.5); RDW Standard Deviation 48.4 fL (36.4-46.3); Red Blood Count 4.39 M/uL (3.93-5.22); White Blood Count 5.44 K/ul (4.8-10.8)
[2022-01-27 09:35] LABS: BUN Creatinine Ratio 17.1 (10-20); Basophils # (auto) 0.02 K/uL (0-0.2); Basophils % (auto) 0.4 %; Calcium 9.7 mg/dl (8.5-10.1); Creatinine Clr Calc Pharmacy 41.8 ml/min; Eosinophils # (auto) 0.05 K/uL (0-0.50); Eosinophils % (auto) 0.9 %; Est GFR (African American) 77.2 ml/min; Est GFR (Non-African American) 66.6 ml/min; Immature Granulocytes # (auto) 0.02 K/uL (0.00-0.02); Immature Granulocytes % (auto) 0.4 %; Lymphocytes # (auto) 0.84 K/uL (1.2-3.4); Lymphocytes % (auto) 15.4 %; Monocytes # (auto) 0.33 K/uL (0.24-0.82); Monocytes % (auto) 6.1 %; Neutrophils # (auto) 4.18 K/uL (1.4-6.5); Neutrophils % (auto) 76.8 %; Potassium 4.3 mmol/L (3.5-5.1)
--- NOTE | 2022-01-27 10:22 | Hospitalist Progress Note ---
Date of Service January 27, 2022 Assessment & Plan (1) Complicated UTI (urinary tract infection): Plan: No sepsis for now Traumatic pelvic fracture/hematoma Patient currently hemodynamically stable CT abd./pelvis IMPRESSION: 1. No significant change in the nondisplaced fracture within the right superior pubic ramus with a surrounding 4.9 x 3.5 cm hematoma. There is also small amount of hemorrhage within the right space of Retzius resulting in mild mass effect along the right anterior bladder wall. 2. A 6 mm nodule within the left lower lobe. This is new from the prior studies. [address] follow-up recommended to ensure stability. 3. Cholelithiasis. 4. Mild bladder wall thickening, unchanged. 5. Additional findings as described above. CT pelvis IMPRESSION: 1. Acute fracture of the right superior pubic ramus without significant displacement. There is an associated 5.2 cm surrounding hematoma extending into the space of Retzius partially compressing the urinary bladder. 2. Small subcutaneous contusion lateral to the right hip. 3. Partial distention of the urinary bladder with circumferential wall thickening and bladder diverticulum noted. Orthopedics consult Re: Pelvic fracture Conservative management for pelvic fracture IMPRESSION: Non-displaced, closed, right superior Rami fracture, initial visit. PLAN: Will treat non-operatively. WBAT with walker or IV pole and assistance as needed. PT/OT Ice to right hip / anterior pelvis. Continue pain control: Tylenol, Aleve; Tramadol for breakthrough pain Follow-up in office with x-rays AP pelvis and inlet & outlet views in 2 weeks, after discharge. Appropriate to hold Plavix for now given pelvic hematoma. Resume if H&H stable Complicated UTI Follow Urine Cultx, started on Aztreonam - cont. (pt has multiple Abx allergies) Chronic conditions: hx of CAD status post CABG Hypertension, elevated secondary discomfort SSS status post PPM LE PVD status post surgery hyperlipidemia on statin Rx hx of AAA COPD, pulmonary status at baseline past tobacco abuse PT OT eval DVT prophylaxis. Teds Re: Pelvic hematoma (SCDs contraindicated with history of LE PAD) Full code as per patient Admission and Anticipated Discharge Date Admission Date: January 26, 2022 Subjective Pt seen in follow up of fall, UTI, pelvic fracture Currently, sitting up in bed, in no acute distress Reports she is feeling well, able to ambulate, she was seen by occupational therapist Also she was seen by orthopedics She denies any fevers, chills, chest pain, shortness of breath, abdominal pain, nausea or vomiting Urine culture is positive,patient known to have many allergies to antibiotics Review of Systems Review of Systems: All systems reviewed & are unremarkable except as noted in Subjective Physical Exam Physical Exam: GENERAL: Elderly thin female, in no acute distress HEENT: NC/AT. EOMI, PERRL. [place] palpebral conjunctivae, no ptosis, moist buccal mucosa NECK : Supple, no tenderness CHEST : Decreased breath sounds, no tenderness HEART : RRR, systolic murmur ABDOMEN: soft, nontender, + bowel sounds EXTREMITIES : Minimal LE swelling with abrasions, no LE tenderness, contusion over right elbow NEUROLOGIC : Alert oriented, answering questions appropriately, no facial asymmetry, moves extremities SKIN: Normal color, warm Results & Data Results & Data ([facility]) Vital Signs (Past 12 Hours) Vital Signs Temp Pulse Resp BP Pulse Ox Pulse Ox O2 Del Method 01/27/22 07:48 36.4 C L 60 16 116/73 96 Room Air 01/27/22 03:24 68 132/69 01/27/22 01:33 36.7 C 68 20 184/67 H 100 Room Air 01/27/22 00:43 36.7 C 68 20 184/67 H 100 Room Air 01/27/22 00:43 100 01/26/22 23:00 71 18 161/70 H 94 Room Air O2 Del Method 01/27/22 07:48 01/27/22 03:24 01/27/22 01:33 01/27/22 00:43 01/27/22 00:43 Room Air 01/26/22 23:00 Laboratory Results 01/27/22 01/27/22 01/27/22 Range/Units 08:58 08:58 08:58 WBC 5.44 (4.8-10.8) K/ul RBC 4.39 (3.93-5.22) M/uL Hgb 13.5 (12.0-16.0) g/dl Hct 41.4 (34.1-44.9) % MCV 94.3 (80.0-100.0) fL MCH 30.8 (25.0-34.0) pg MCHC 32.6 (32.0-36.0) g/dL RDW Std Deviation 48.4 H (36.4-46.3) fL RDW Coeff of Veda 13.8 (11.5-14.5) % Plt Count 147 (130-400) K/uL MPV 9.7 (9.4-12.3) fL Immature Gran % (Auto) 0.4 % Neut % (Auto) 76.8 % Lymph % (Auto) 15.4 % [place] % (Auto) 6.1 % Eos % (Auto) 0.9 % Baso % (Auto) 0.4 % Neut # (Auto) 4.18 (1.4-6.5) K/uL Lymph # (Auto) 0.84 L (1.2-3.4) K/uL [place] # (Auto) 0.33 (0.24-0.82) K/uL Eos # (Auto) 0.05 (0-0.50) K/uL Baso # (Auto) 0.02 (0-0.2) K/uL Immature Gran # (Auto) 0.02 (0.00-0.02) K/uL PT (9.0-12.0) Seconds INR (0.9-1.1) Sodium 139 (136-145) mmol/L Potassium 4.3 (3.5-5.1) mmol/L Chloride 107 (98-107) mmol/L Carbon Dioxide 27 (21-32) mmol/L Anion Gap 5 (3-11) BUN 14 (6-23) mg/dl Creatinine 0.82 (0.6-1.2) mg/dl Est Cr Clr Drug Dosing 41.8 ml/min Est GFR ( Amer) 77.2 ml/min Est GFR (Non-Af Amer) 66.6 ml/min BUN/Creatinine Ratio 17.1 (10-20) Glucose 126 H (70-99(Fasting)) mg/dl Calcium 9.7 (8.5-10.1) mg/dl Total Bilirubin (0.2-1.0) mg/dl AST (13-39) U/L ALT (7-52) U/L Alkaline Phosphatase (34-104) U/L Total Protein (6.0-8.3) gm/dl Albumin (3.4-5.0) gm/dl Globulin (2.5-4.0) gm/dl Albumin/Globulin Ratio (0.9-2) Urine Color Urine Appearance (Clear) Urine pH (4.5-7.5) Ur Specific [place] (1.000-1.030) Urine Protein (Negative) Urine Glucose (UA) (Negative) Urine Ketones (Negative) Urine Blood (Negative) Urine Nitrite (Negative) Urine Bilirubin (Negative) Urine Urobilinogen (Negative) Ur Leukocyte Esterase (Negative) Urine WBC (Auto) (0-5) /hpf Urine RBC (Auto) (0-4) /hpf U Hyaline Cast (Auto) (0-5) /lpf U Epithel Cells (Auto) (0-5) /lpf Urine Bacteria (Auto) (Negative) SARS-CoV-2, RNA, NAAT (NEGATIVE) Blood Type Pending Antibody Screen Pending 01/26/22 01/26/22 01/26/22 Range/Units 22:53 21:00 21:00 WBC (4.8-10.8) K/ul RBC (3.93-5.22) M/uL Hgb (12.0-16.0) g/dl Hct (34.1-44.9) % MCV (80.0-100.0) fL MCH (25.0-34.0) pg MCHC (32.0-36.0) g/dL RDW Std Deviation (36.4-46.3) fL RDW Coeff of Veda (11.5-14.5) % Plt Count (130-400) K/uL MPV (9.4-12.3) fL Immature Gran % (Auto) % Neut % (Auto) % Lymph % (Auto) % [place] % (Auto) % Eos % (Auto) % Baso % (Auto) % Neut # (Auto) (1.4-6.5) K/uL Lymph # (Auto) (1.2-3.4) K/uL [place] # (Auto) (0.24-0.82) K/uL Eos # (Auto) (0-0.50) K/uL Baso # (Auto) (0-0.2) K/uL Immature Gran # (Auto) (0.00-0.02) K/uL PT 10.7 (9.0-12.0) Seconds INR 1.0 (0.9-1.1) Sodium 140 (136-145) mmol/L Potassium 4.2 (3.5-5.1) mmol/L Chloride 109 H (98-107) mmol/L Carbon Dioxide 23 (21-32) mmol/L Anion Gap 8 (3-11) BUN 17 (6-23) mg/dl Creatinine 0.89 (0.6-1.2) mg/dl Est Cr Clr Drug Dosing 38.5 ml/min Est GFR ( Amer) 70.0 ml/min Est GFR (Non-Af Amer) 60.4 ml/min BUN/Creatinine Ratio 19.1 (10-20) Glucose 89 (70-99(Fasting)) mg/dl Calcium 10.0 (8.5-10.1) mg/dl Total Bilirubin 0.8 (0.2-1.0) mg/dl AST 18 (13-39) U/L ALT 12 (7-52) U/L Alkaline Phosphatase 101 (34-104) U/L Total Protein 6.8 (6.0-8.3) gm/dl Albumin 4.1 (3.4-5.0) gm/dl Globulin 2.7 (2.5-4.0) gm/dl Albumin/Globulin Ratio 1.5 (0.9-2) Urine Color Urine Appearance (Clear) Urine pH (4.5-7.5) Ur Specific [place] (1.000-1.030) Urine Protein (Negative) Urine Glucose (UA) (Negative) Urine Ketones (Negative) Urine Blood (Negative) Urine Nitrite (Negative) Urine Bilirubin (Negative) Urine Urobilinogen (Negative) Ur Leukocyte Esterase (Negative) Urine WBC (Auto) (0-5) /hpf Urine RBC (Auto) (0-4) /hpf U Hyaline Cast (Auto) (0-5) /lpf U Epithel Cells (Auto) (0-5) /lpf Urine Bacteria (Auto) (Negative) SARS-CoV-2, RNA, NAAT NEGATIVE (NEGATIVE) Blood Type Antibody Screen 01/26/22 01/26/22 Range/Units 21:00 20:05 WBC 7.37 (4.8-10.8) K/ul RBC 4.68 (3.93-5.22) M/uL Hgb 14.3 (12.0-16.0) g/dl Hct 44.5 (34.1-44.9) % MCV 95.1 (80.0-100.0) fL MCH 30.6 (25.0-34.0) pg MCHC 32.1 (32.0-36.0) g/dL RDW Std Deviation 47.2 H (36.4-46.3) fL RDW Coeff of Veda 13.6 (11.5-14.5) % Plt Count 136 (130-400) K/uL MPV 9.8 (9.4-12.3) fL Immature Gran % (Auto) 0.5 % Neut % (Auto) 77.2 % Lymph % (Auto) 15.1 % [place] % (Auto) 6.4 % Eos % (Auto) 0.5 % Baso % (Auto) 0.3 % Neut # (Auto) 5.69 (1.4-6.5) K/uL Lymph # (Auto) 1.11 L (1.2-3.4) K/uL [place] # (Auto) 0.47 (0.24-0.82) K/uL Eos # (Auto) 0.04 (0-0.50) K/uL Baso # (Auto) 0.02 (0-0.2) K/uL Immature Gran # (Auto) 0.04 H (0.00-0.02) K/uL PT (9.0-12.0) Seconds INR (0.9-1.1) Sodium (136-145) mmol/L Potassium (3.5-5.1) mmol/L Chloride (98-107) mmol/L Carbon Dioxide (21-32) mmol/L Anion Gap (3-11) BUN (6-23) mg/dl Creatinine (0.6-1.2) mg/dl Est Cr Clr Drug Dosing ml/min Est GFR ( Amer) ml/min Est GFR (Non-Af Amer) ml/min BUN/Creatinine Ratio (10-20) Glucose (70-99(Fasting)) mg/dl Calcium (8.5-10.1) mg/dl Total Bilirubin (0.2-1.0) mg/dl AST (13-39) U/L ALT (7-52) U/L Alkaline Phosphatase (34-104) U/L Total Protein (6.0-8.3) gm/dl Albumin (3.4-5.0) gm/dl Globulin (2.5-4.0) gm/dl Albumin/Globulin Ratio (0.9-2) Urine Color Yellow Urine Appearance Clear (Clear) Urine pH 6.5 (4.5-7.5) Ur Specific [place] 1.007 (1.000-1.030) Urine Protein Negative (Negative) Urine Glucose (UA) Negative (Negative) Urine Ketones Negative (Negative) Urine Blood Trace H (Negative) Urine Nitrite Positive A (Negative) Urine Bilirubin Negative (Negative) Urine Urobilinogen Negative (Negative) Ur Leukocyte Esterase 2+ H (Negative) Urine WBC (Auto) 10-30 H (0-5) /hpf Urine RBC (Auto) 0-4 (0-4) /hpf U Hyaline Cast (Auto) 1-5 (0-5) /lpf U Epithel Cells (Auto) 20-30 H (0-5) /lpf Urine Bacteria (Auto) 4+ H (Negative) SARS-CoV-2, RNA, NAAT (NEGATIVE) Blood Type Antibody Screen Medications Administered Current Inpatient Medications Acetaminophen (Acetaminophen 325 Mg Tab) 650 mg PO Q4H PRN PRN Reason: Pain or Fever Stop: 02/26/22 00:42 Last Admin: 01/27/22 03:08 Dose: 650 mg Atorvastatin Calcium (Atorvastatin 40 Mg Tab) 40 mg PO [facility] Stop: 02/26/22 08:59 Last Admin: 01/27/22 08:12 Dose: 40 mg Lactated Ringer's (Lr) 1,000 mls @ 40 mls/hr IV .Q24H ONE Stop: 01/27/22 23:30 Last Admin: 01/27/22 00:02 Dose: 40 mls/hr Promethazine HCl 6.25 mg/ (Sodium Chloride) 50.25 mls @ 201 mls/hr IV Q6H PRN PRN Reason: Nausea And Vomiting Stop: 02/26/22 00:42 Aztreonam 1,000 mg/ Dextrose 110 mls @ 100 mls/hr IV Q8H [facility]; Protocol Stop: 02/06/22 07:59 Last Infusion: 01/27/22 09:17 Dose: Infused Lisinopril (Lisinopril 2.5 Mg Tab) 2.5 mg PO [facility] Stop: 02/27/22 08:59 Metoprolol Succinate (Metoprolol Succ 50mg Ext Rel Tab) 50 mg PO QAM GREG Stop: 02/26/22 08:59 Last Admin: 01/27/22 08:12 Dose: 50 mg Morphine Sulfate (Morphine Sulfate 2 Mg/Ml Carp) 2 mg IV Q3H PRN PRN Reason: Pain Stop: 02/10/22 00:42 Tramadol HCl (Tramadol Hcl 50 Mg Tablet) 25 - 50 mg PO Q4H PRN PRN Reason: Pain Stop: 02/26/22 00:42
--- NOTE | 2022-01-27 13:47 | Electrocardiogram Report ---
Test Reason : Blood Pressure : / mmHG Vent. Rate : 063 BPM Atrial Rate : 063 BPM P-R Int : 154 ms QRS Dur : 068 ms QT Int : 438 ms P-R-T Axes : 045 055 109 degrees QTc Int : 448 ms Poor data quality, interpretation may be adversely affected Normal sinus rhythm Nonspecific ST and T wave abnormality Abnormal ECG When compared with ECG of 28-JUN-2021 01:33, Premature ventricular complexes are no longer Present Confirmed by Damion Jones [id number]) on 01/27/2022 1:47:05 PM Referred By: REFERRED SELF Confirmed By:Damion Jones
[2022-01-28] MEDS: AZTREONAM 1,000 MG in DEXTROSE 5% 100 ML IV SCH ×2 (00:42→07:53)
[2022-01-28] MEDS: ATORVASTATIN 40 MG TAB PO SCH (07:58)
[2022-01-28] MEDS: METOPROLOL SUCC 50MG EXT REL TAB PO SCH (07:59)
[2022-01-28 08:19] LABS: Hematocrit (blood only) 42.3 % (34.1-44.9); Hemoglobin 13.4 g/dl (12.0-16.0)
[2022-01-28] MEDS ORDERED: lisinopril 2.5 MG TAB PO SCH (09:00)
[2022-01-28] MEDS ORDERED: CLOPIDOGREL BISULFATE 75 MG TAB PO SCH (09:45)
--- NOTE | 2022-01-28 09:53 | Hospitalist Progress Note ---
Date of Service January 28, 2022 Assessment & Plan (1) Complicated UTI (urinary tract infection): Plan: No sepsis for now Traumatic pelvic fracture/hematoma Patient currently hemodynamically stable CT abd./pelvis IMPRESSION: 1. No significant change in the nondisplaced fracture within the right superior pubic ramus with a surrounding 4.9 x 3.5 cm hematoma. There is also small amount of hemorrhage within the right space of Retzius resulting in mild mass effect along the right anterior bladder wall. 2. A 6 mm nodule within the left lower lobe. This is new from the prior studies. [address] follow-up recommended to ensure stability. 3. Cholelithiasis. 4. Mild bladder wall thickening, unchanged. 5. Additional findings as described above. CT pelvis IMPRESSION: 1. Acute fracture of the right superior pubic ramus without significant displacement. There is an associated 5.2 cm surrounding hematoma extending into the space of Retzius partially compressing the urinary bladder. 2. Small subcutaneous contusion lateral to the right hip. 3. Partial distention of the urinary bladder with circumferential wall thickening and bladder diverticulum noted. Orthopedics consult Re: Pelvic fracture Conservative management for pelvic fracture IMPRESSION: Non-displaced, closed, right superior Rami fracture, initial visit. PLAN: Will treat non-operatively. WBAT with walker or IV pole and assistance as needed. PT/OT Ice to right hip / anterior pelvis. Continue pain control: Tylenol, Aleve; Tramadol for breakthrough pain Follow-up in office with x-rays AP pelvis and inlet & outlet views in 2 weeks, after discharge. Held Plavix initially given pelvic hematoma. Resume as H&H stable Complicated UTI Follow Urine Cultx, started on Aztreonam - cont. (pt has multiple Abx allergies) Urine culture positive for Klebsiella pneumoniae Started on Bactrim, patient tolerated first dose well. She is eager for discharge. Will send Rx for the rest of antibiotic course to her pharmacy. Home health arranged. Patient's daughter available to help as needed as well. Chronic conditions: hx of CAD status post CABG Hypertension, elevated secondary discomfort SSS status post PPM LE PVD status post surgery hyperlipidemia on statin Rx hx of AAA COPD, pulmonary status at baseline past tobacco abuse PT OT eval DVT prophylaxis. Teds Re: Pelvic hematoma (SCDs contraindicated with history of LE PAD) Full code as per patient Admission and Anticipated Discharge Date Admission Date: January 26, 2022 Subjective Pt seen in follow up of fall, UTI, pelvic fracture Currently, sitting up in bed, in no acute distress Reports she is feeling well, ambulating w/ walker She was seen by orthopedics She denies any fevers, chills, chest pain, shortness of breath, abdominal pain, nausea or vomiting Daughter at the bedside and updated Review of Systems Review of Systems: All systems reviewed & are unremarkable except as noted in Subjective Physical Exam Physical Exam: GENERAL: Elderly thin female, in no acute distress HEENT: NC/AT. EOMI, PERRL. [place] palpebral conjunctivae, no ptosis, moist buccal mucosa NECK : Supple, no tenderness CHEST : Decreased breath sounds, no tenderness HEART : RRR, systolic murmur ABDOMEN: soft, nontender, + bowel sounds EXTREMITIES : Minimal LE swelling with abrasions, no LE tenderness, contusion over right elbow NEUROLOGIC : Alert oriented, answering questions appropriately, no facial asymmetry, moves extremities SKIN: Normal color, warm Results & Data Results & Data ([facility]) Vital Signs (Past 12 Hours) Vital Signs Temp Pulse Resp BP Pulse Ox Pulse Ox O2 Del Method 01/28/22 07:17 36.8 C 61 16 95/58 L 90 Room Air 01/28/22 00:43 97 O2 Del Method 01/28/22 07:17 01/28/22 00:43 Room Air Laboratory Results 01/28/22 01/27/22 Range/Units 08:02 08:58 Hgb 13.4 (12.0-16.0) g/dl Hct 42.3 (34.1-44.9) % Blood Type O Positive Antibody Screen NEGATIVE Medications Administered Current Inpatient Medications Acetaminophen (Acetaminophen 325 Mg Tab) 650 mg PO Q4H PRN PRN Reason: Pain or Fever Stop: 02/26/22 00:42 Last Admin: 01/27/22 14:35 Dose: 650 mg Atorvastatin Calcium ([facility] 40 Mg Tab) [facility] [place]: 02/26/22 08:59 Last Admin: 01/28/22 07:58 Dose: 40 mg Clopidogrel Bisulfate (Clopidogrel Bisulfate 75 Mg Tab) 75 [facility] [place]: 02/27/22 09:44 Promethazine HCl 6.25 mg/ (Sodium Chloride) 50.25 mls @ 201 mls/hr IV Q6H PRN PRN Reason: Nausea And Vomiting Stop: 02/26/22 00:42 Aztreonam 1,000 mg/ Dextrose 110 mls @ 100 mls/hr IV Q8H [facility]; Protocol Stop: 02/06/22 07:59 Last Admin: 01/28/22 07:53 Dose: 100 mls/hr Lisinopril (Lisinopril 2.5 Mg Tab) 2.5 mg [facility] [place] [place]: 02/27/22 08:59 Last Admin: 01/28/22 07:58 Dose: Not Given Metoprolol Succinate (Metoprolol Succ 50mg Ext Rel Tab) 50 [facility] [place] [place]: 02/26/22 08:59 Last Admin: 01/28/22 07:59 Dose: Not Given Morphine Sulfate (Morphine Sulfate 2 Mg/Ml Carp) 2 mg IV Q3H PRN PRN Reason: Pain Stop: 02/10/22 00:42 Tramadol HCl (Tramadol Hcl 50 Mg Tablet) 25 - 50 mg PO Q4H PRN PRN Reason: Pain Stop: 02/26/22 00:42 Last Admin: 01/27/22 21:04 Dose: 25 mg
[2022-01-28] MEDS ORDERED: SULFAMETHOXAZOLE/TRIMETHOPRIM DS 800/160MG TAB PO SCH (11:00)
[2022-01-28] MEDS: ACETAMINOPHEN 325 MG TAB PO PRN (13:45)
--- NOTE | 2022-01-28 16:15 | Discharge Summary ---
Date of Service January 28, 2022 Admission HPI Per Admitting Provider History obtained from patient and records. Medical history significant for CAD status post CABG, SSS status post PPM, PVD status post surgery, hypertension, hyperlipidemia, COPD, past tobacco abuse. Last confinement June 2021 for COVID-19 illness. Patient was walking downtown she fell forward landing on the ground. Subsequent groin pain without head trauma. No chest pain, no SOB, no syncope, no LOC. Patient able to walk back to her apartment although in pain. She called EMS because of worsening discomfort. Patient brought to the ER for evaluation. Medical Historyas above Surgical History : Cataracts surgery, CABG, PPM, vascular procedures, tonsillectomy/adenoidectomy Family History : AAA, heart disease, stroke Personal/Social history : Past tobacco abuse, occasional EtOH intake, retired [employer] Admission Exam Per Admitting Provider GENERAL: Pleasant, loquacious, no respiratory distress SKIN: Normal color, warm HEENT: Bespectacled, [place] palpebral conjunctivae, no ptosis, moist buccal mucosa NECK : Supple, no tenderness CHEST : Decreased breath sounds, no tenderness HEART : RRR, systolic murmur ABDOMEN: Some distention, suprapubic tenderness heart in the right EXTREMITIES : Minimal LE swelling with abrasions, no LE tenderness, contusion over right elbow NEUROLOGIC : Coherent, no facial asymmetry, gait and stance not assessed Principal Diagnosis Fall, pelvic fracture UTI Discharge Exam GENERAL: Elderly thin female, in no acute distress HEENT: NC/AT. EOMI, PERRL. [place] palpebral conjunctivae, no ptosis, moist buccal mucosa NECK : Supple, no tenderness CHEST : Decreased breath sounds, no tenderness HEART : RRR, systolic murmur ABDOMEN: soft, nontender, + bowel sounds EXTREMITIES : Minimal LE swelling with abrasions, no LE tenderness, contusion over right elbow NEUROLOGIC : Alert oriented, answering questions appropriately, no facial asymmetry, moves extremities SKIN: Normal color, warm Discharge Data Allergies Allergy/AdvReac Type Severity Reaction Status Date / Time Penicillins Allergy Intermediate ITCHY RASH Verified 01/26/22 18:42 ranitidine Allergy Intermediate rash Verified 01/26/22 18:42 levofloxacin [From Levaquin] Allergy Mild Rash Verified 06/29/21 18:46 doxycycline Allergy Unknown ON MED LIST Verified 06/29/21 18:46 amoxicillin AdvReac Intermediate SEVERE Verified 01/26/22 18:42 DIARRHEA cefadroxil AdvReac Mild Nausea Verified 01/26/22 18:42 Duaqrih-TNF-SeD Reductase AdvReac Mild DIARRHEA Verified 01/26/22 18:42 Inhibitor [Tpuduqd-Axn-Fnm Reductase Inhibitor] ANTIBIOTICS Allergy Unknown PER PT Uncoded 06/29/21 18:46 "ALLERGIC TO A LOT OF ANTIBIOTICS". Consultations 01/26/22 23:30 Consult Orthopedic Surgery Routine Ordered Studies 01/26/22 18:37 CT pelvis wo con Stat FINDINGS: Study is degraded by respiratory motion artifact. Atherosclerosis of the aorta and iliac arteries. Partial distention of the urinary bladder with moderate wall thickening. There is a suggested 3.5 cm diverticulum noted along the superior aspect of the urinary bladder. Unremarkable appearance of the uterus. Moderate fecal retention. There is no bowel obstruction or bowel wall thickening. Stool- filled terminal ileum. Nonvisualization of the appendix. Small subcutaneous contusion lateral to the right hip. 5.2 x 3.5 x 3.8 cm hematoma is noted surrounding an acute minimally displaced fracture of the right superior pubic ramus which extends into the space of Retzius. 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 No intra-articular fracture extension identified. No additional pelvic or proximal femoral fracture identified. There is mild to moderate osteoarthritis of the hips. No avascular necrosis. There is no sacral insufficiency fracture identified. IMPRESSION: 1. Acute fracture of the right superior pubic ramus without significant displacement. There is an associated 5.2 cm surrounding hematoma extending into the space of Retzius partially compressing the urinary bladder. 2. Small subcutaneous contusion lateral to the right hip. 3. Partial distention of the urinary bladder with circumferential wall thickening and bladder diverticulum noted. 01/26/22 20:35 CT abd pelvis IV con only Urgent FINDINGS: Redemonstration of the nondisplaced fracture within the medial aspect of the right superior pubic ramus. There is a surrounding soft tissue hematoma best seen image 320 which measures approximately 4.9 x 3.5 cm. This is similar to the prior study. This results in mild mass effect along the right anterior bladder wall. There is also a small amount of hemorrhage within the right space of Retzius. Mild chronic interstitial thickening at the lung bases. A 6 mm nodule within the left lower lobe. This is best seen image 15. No pneumoperitoneum. No pneumatosis. Partially visualized pacemaker wires are noted. Mild circumferential thickening of the distal esophagus, unchanged. There is a small diverticulum at the second portion of the duodenum. Cholelithiasis. No gallbladder wall thickening. The liver, spleen, and pancreas are unremarkable. Mild nodular thickening of the adrenal glands, unchanged. Calcifications within the renal sinuses appear to be vascular. Moderate bilateral cortical renal thinning. No hydronephrosis. The main portal vein is patent. No retroperitoneal lymphadenopathy. There is a 3.1 cm infrarenal abdominal aortic aneurysm. No pelvic free fluid. The uterus and ovaries are unremarkable. No bowel wall thickening or obstruction. Normal appendix. Mild bladder wall thickening, unchanged. IMPRESSION: 1. No significant change in the nondisplaced fracture within the right superior pubic ramus with a surrounding 4.9 x 3.5 cm hematoma. There is also small amount of hemorrhage within the right space of Retzius resulting in mild mass effect along the right anterior bladder wall. 2. A 6 mm nodule within the left lower lobe. This is new from the prior studies. [address] follow-up recommended to ensure stability. 3. Cholelithiasis. 4. Mild bladder wall thickening, unchanged. 5. Additional findings as described above. Hospital Course (1) Complicated UTI (urinary tract infection): No sepsis for now Traumatic pelvic fracture/hematoma Patient currently hemodynamically stable CT abd./pelvis IMPRESSION: 1. No significant change in the nondisplaced fracture within the right superior pubic ramus with a surrounding 4.9 x 3.5 cm hematoma. There is also small amount of hemorrhage within the right space of Retzius resulting in mild mass effect along the right anterior bladder wall. 2. A 6 mm nodule within the left lower lobe. This is new from the prior studies. [address] follow-up recommended to ensure stability. 3. Cholelithiasis. 4. Mild bladder wall thickening, unchanged. 5. Additional findings as described above. CT pelvis IMPRESSION: 1. Acute fracture of the right superior pubic ramus without significant displacement. There is an associated 5.2 cm surrounding hematoma extending into the space of Retzius partially compressing the urinary bladder. 2. Small subcutaneous contusion lateral to the right hip. 3. Partial distention of the urinary bladder with circumferential wall thickening and bladder diverticulum noted. Orthopedics consult Re: Pelvic fracture Conservative management for pelvic fracture IMPRESSION: Non-displaced, closed, right superior Rami fracture, initial visit. PLAN: Will treat non-operatively. WBAT with walker or IV pole and assistance as needed. PT/OT Ice to right hip / anterior pelvis. Continue pain control: Tylenol, Aleve; Tramadol for breakthrough pain Follow-up in office with x-rays AP pelvis and inlet & outlet views in 2 weeks, after discharge. Held Plavix initially given pelvic hematoma. Resume as H&H stable Complicated UTI Follow Urine Cultx, started on Aztreonam - cont. (pt has multiple Abx allergies) Urine culture positive for Klebsiella pneumoniae Started on Bactrim, patient tolerated first dose well. She is eager for discharge. Will send Rx for the rest of antibiotic course to her pharmacy. Home health arranged. Patient's daughter available to help as needed as well. Chronic conditions: hx of CAD status post CABG Hypertension, elevated secondary discomfort SSS status post PPM LE PVD status post surgery hyperlipidemia on statin Rx hx of AAA COPD, pulmonary status at baseline past tobacco abuse PT OT eval DVT prophylaxis. Teds Re: Pelvic hematoma (SCDs contraindicated with history of LE PAD) Full code as per patient Home Health Attestation I certify that this patient is under my care and that I, or a physicians assistant professor of drama working with me, had a face to-face encounter that meets the home health [id number] encounter requirements with this patient. The encounter with the patient was in whole, or in part, for the following medical condition, which is the primary reason for home health care (list medical condition): pelvic fracture I certify that, based on my findings, the following services are medically [facility] home health services: My clinical findings support the need for the above services because: OT Assess ADL Status and Restore Function w ADLs PT Assessment for Endurance / Balance / Strength PT Eval for Safety and Mobility PT Eval for Safety, Gait Training, Assistive Devices PT Gait and Balance Training, Strengthening and Safety Skilled Nsg Assess Pt Illness, Disease and Sx Monitoring Further, I certify that my clinical findings support that this patient is homebound (i.e. absences from home require considerable and taxing effort and are for medical reasons or uatsdin services or infrequently or of short duration when for other reasons) because: Transportation Assistance/Unable to Leave Home Unassisted Certification for Home Health Services: Based on the above findings, I certify that this patient is confined to the home and needs intermittent fdc care, physical therapy and/or speech therapy or continues to need occupational therapy. The patient is under my care, and I have initiated the establishment of the plan of care. This patient will be followed by a physician who will periodically review the plan of care. Total Time Total Time Spent Total Time Spent (In Minutes): 40 Discharge Plan Discharge Items Patient Disposition: Home - Home Health Services Reason For Visit: COMP UTI, PELVIC FX Discharge Diagnosis: Fall, pelvic fracture UTI Activity: Per Instructions section Weightbearing: Full weightbearing Weightbearing Comment: weightbearing as tolerated using walker Non-emergency contact: Primary Care Provider Call non-emergency contact if: you have any medication questions and your symptoms worsen Follow-up/Referrals: William Rosario MD [Primary Care Provider] - 02/04/22 10:00 am (Date & Time 02/04/2022 10:00 AM Provider Sivakumar Gray MD Department [place] ) Rachel Black PA-C [Physician Academic Program Specialist] - 02/10/22 10:15 am Diet: Heart Healthy Adddeloris Attending Provider Instructions: Follow-up with your primary care doctor, the appointment was scheduled for you for February 04. Follow-up with orthopedics, on February 10. Finish antibiotic treatment with Bactrim, as prescribed. Make sure to stay well-hydrated, try to avoid drinks with high sugar amount. For pain, you can take Tylenol, 1000 mg 3 times a day, the max daily dose is 3000 mg. For more severe pain, you can take tramadol as prescribed. Addtl Tub Operator Provider Instructions: Per orthopedics pt may weight bear as tolerated using a walker. She may use ice to the area with a towel layer x15min as needed. range of motion as tolerated Follow up as scheduled in approximately 2 weeks. Pending Studies at Discharge: No Stand-Alone Forms: My [employer], Smoking Cessation Medications and DC Order Prescriptions: New sulfamethoxazole-trimethoprim [Bactrim DS] 800-160 mg Tablet 1 tab PO Q12H 4 Days Qty: 8 0RF tramadol 50 mg tablet 25 mg PO BID PRN (Reason: pain) Qty: 7 0RF Continued atorvastatin 40 mg tablet 40 mg PO QAM metoprolol succinate 50 mg tablet extended release 24 hr 50 mg PO QAM clopidogrel 75 mg tablet 75 mg PO QAM acetaminophen [Tylenol Extra Strength] 500 mg Tablet 500 mg PO Q8 PRN (Reason: Pain) albuterol sulfate 90 mcg/actuation HFA aerosol inhaler 2 puff INHALATION Q4 PRN (Reason: Wheezing) Discharge Orders: Discharge Order (Routine); Ordered 01/28/22 Ordered By: Yuriy Montelongo Admission Data Admit Date/Time: 01/26/22 23:25 Attending Provider: Yuriy Montelongo Admit Provider: Francisco Bocanegra Primary Care Provider: William Rosario Other Providers: Luis Enrique Winn
== END 2022-01-28 17:00 | disposition home health service (06) | DRG 690 ==
LOC: ED 18:24 → 3W 23:25

== ENCOUNTER 2023-12-13 10:21 | Observation (INO) ==
--- NOTE | 2023-12-13 10:30 | Emergency Department Note ---
Impression & Plan Claudication, Acute foot pain ED Provider Note NAME: GREGG CHAVARRIA AGE: 83 SEX: F : 1940 ARRIVES VIA: Ambulance INFORMANT: Patient ED PROVIDER(S): Federico Wilson DO CHIEF COMPLAINT: Left foot pain HPI: Patient is a 83-year-old female who presents to the ER with a past medical history of hypertension, CAD, bypass surgery, PAD with stents in the left leg for left foot pain. She notes she has had this for over a year. It comes and goes off and on. Since she had stents placed in her left leg back in August at [facility] she has not had the pain in the foot. Started up again past 2 to 4 days. Is worse with walking but when she does not move she has no pain. Denies any headache or change in vision. No chest pain or shortness of breath. Sometimes radiates up into the calf and she gets a cramping pain. No swelling. No other exacerbating or remitting factors. ADDITIONAL HISTORY OBTAINED: Per HPI Chronic Medical/Social Conditions Affecting Care: Per HPI PAST MEDICAL HISTORY:See Below PAST SURGICAL HISTORY:See Below FAMILY HISTORY:See Below SOCIAL HISTORY:See Below HOME MEDICATIONS:See Below ALLERGIES:See Below VITALS:See Below PHYSICAL EXAMINATION: GENERAL: Sitting up in bed, alert, well appearing, well nourished, no distress, non-toxic EYE EXAM: normal conjunctiva. OROPHARYNX: no exudate, no erythema, lips, buccal mucosa, and tongue normal and mucous membranes are moist NECK: supple, no nuchal rigidity, no adenopathy, non-tender LUNGS: Clear to auscultation. Normal chest wall mechanics HEART: no murmurs, S1 normal and S2 normal ABDOMEN: abdomen soft, non-tender, normo-active bowel sounds, no masses, no rebound or guarding. UPPER EXTREMITIES: upper extremities are grossly normal. LOWER EXTREMITIES: Flexion-extension bilateral hips knees ankles and EHL intact. Unable to appreciate a DP or PT on the left. Foot is warm and has normal color. NEURO EXAM: Normal sensorium, cranial nerves II-XII grossly intact, normal speech, no gross weakness of arms, no gross weakness of legs. MEDICAL DECISION MAKING: Patient is an 83-year-old female who presents ER for left foot and calf pain with exertion. IV was established blood work was obtained. Labs show mild leukocytosis of 4.7. No significant anemia. BMP along LFTs bilirubin was unremarkable. UA does appear to be consistent with UTI. UA does appear to be consistent with UTI. Ultrasound was obtained and per review of [facility] records shows a new occlusion of the superficial femoral artery since 09/28/2023 which was reviewed in [facility] which showed reasonable flows of 107-142. Patient was initially discussed with Dr. Prakash who is on-call for vascular. Patient after this conversation noted that she forgot to mention that she had seen Dr. Vishnu Mac before. Following this I consulted him and he evaluated the patient at bedside. Patient was admitted to the hospital for further workup by Dr. Vishnu Mac to go to the OR. Patient was given a gram of Rocephin while in the ER for UTI. Patient was given a bolus of heparin and placed on a heparin drip after discussion with cardiology. Patient denies any hemoptysis, hematuria, blood in the stool, brain bleeds or recent trauma or surgery. Consults/Care Managements Discussions: Per [facility] Triage Nursing notes reviewed. Limited review of prior medical records performed Vital Signs: reviewed and remarkable for no significant abnormalities Differential diagnosis: DVT, musculoskeletal, infection, joint effusion, trauma, lymphedema, idiopathic, CHF, as well as other pathologies. ER treatment provided: See below Diagnostics interpreted by me include EKG and cardiac monitoring as listed below: -Cardiac Monitoring: An order was placed for continuous cardiac monitoring. The monitor shows a rate of 70 with sinus rhythm. -ECG: none -Laboratory studies:Interpreted by me as stated above in MDM and shown below. Imaging studies: Xrays: As interpreted by me: X-ray of the foot shows no acute fracture or dislocation CTs show: None Duplex shows no flow in the superficial femoral artery Procedures:none Critical Care:I have personally spent 35 minutes of critical care time in the direct management of this patient. This includes bedside care, interpretation of diagnostic studies, and testing, discussion with consultants, patient, and family members, and other required patient management activities. This 35 minutes is in excess of all separately billable procedures. Past Med/Surg History Problem List (Updated 12/13/23 @ 13:09 by Federico Wilson DO) Acute foot pain (Acute) Claudication (Acute) Complicated UTI (urinary tract infection) Acute UTI (Acute) Closed fracture of pubic ramus (Acute) Hypokalemia (Acute) COVID-19 (Acute) Dehydration (Acute) Hypertension (Chronic) Heart disease (Acute) Anxiety (Acute) Bilateral leg pain (Acute) Cystitis (Acute) Cystitis (Acute) Dysphagia (Acute) Dysphagia (Acute) Headache (Acute) Headache (Acute) Headache (Acute) Neck pain (Acute) PAD (peripheral artery disease) PAD (peripheral artery disease) Throat pain (Acute) Throat pain (Acute) Throat pain (Acute) UTI (urinary tract infection) (Acute) Family History Other Family history non-contributory Social History Smoking Status: Never smoker Tobacco Type: Cigarettes Hx Alcohol Use: No Hx Substance Use: No Preferred Language: Mauritian Communication Ability: Effective 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 Lathe 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 Required: No Beliefs That Will Affect Care: None marital status: / Current Living Situation: Alone How many Children do You have: 3 Feels Safe at Home: Yes Assistive Devices: Walker Allergies Allergies Allergy/AdvReac Type Severity Reaction Status Date / Time Penicillins Allergy Intermediate ITCHY RASH Verified 12/13/23 13:00 ranitidine Allergy Intermediate rash Verified 12/13/23 13:00 levofloxacin [From Levaquin] Allergy Mild Rash Verified 12/13/23 13:00 doxycycline Allergy Unknown ON MED LIST Verified 12/13/23 13:00 amoxicillin AdvReac Intermediate SEVERE Verified 12/13/23 13:00 DIARRHEA cefadroxil AdvReac Mild Nausea Verified 12/13/23 13:00 Wkatvkx-VMM-UaA Reductase AdvReac Mild DIARRHEA Verified 12/13/23 13:00 Inhibitor [Mpumrtw-Ovp-Hek Reductase Inhibitor] ANTIBIOTICS Allergy Unknown PER PT Uncoded 12/13/23 13:00 "ALLERGIC TO A LOT OF ANTIBIOTICS". Home Meds Home Medications Medication Instructions Recorded Confirmed clopidogrel 75 mg tablet 75 mg PO QAM 07/05/18 12/13/23 metoprolol succinate 50 mg 50 mg PO QAM 07/05/18 12/13/23 tablet,extended release 24 hr acetaminophen 500 mg tablet 500 mg PO Q8 PRN Pain 09/07/19 12/13/23 (Tylenol Extra Strength) albuterol sulfate 90 mcg/actuation 2 puff inhalation Q4 PRN Wheezing 01/26/22 12/13/23 aerosol inhaler cholecalciferol (vitamin D3) 50 2,000 unit PO QAM 12/13/23 12/13/23 mcg (2,000 unit) capsule rosuvastatin 40 mg tablet 40 mg PO QAM 12/13/23 12/13/23 Results & Data (ED) Vital Signs Vital Signs - 24 hr 12/13/23 10:29 12/13/23 10:47 12/13/23 10:52 Temperature 36.8 C Temperature Source Oral Pulse Rate 63 60 Pulse Rate [Apical] 62 Respiratory Rate 18 18 Respiratory Effort / Characteristics Non-Labored Spontaneous Non-Labored Spontaneous Respiratory Depth Normal Normal Blood Pressure 154/89 H Blood Pressure [Left Arm] 150/70 H Blood Pressure Mean 110 Blood Pressure Mean [Left Arm] 96 Blood Pressure Position Sitting Blood Pressure Position [Left Arm] Sitting Pulse Oximetry 92 92 Oxygen Delivery Method Room Air Room Air Sepsis Recent Fever Within 48 Hours No Sepsis New/Unexplained Change in Mental Status No Sepsis Action Taken by Nursing No Action Required 12/13/23 13:11 12/13/23 14:37 Temperature Temperature Source Pulse Rate Pulse Rate [Apical] 60 60 Respiratory Rate 18 18 Respiratory Effort / Characteristics Non-Labored Spontaneous Non-Labored Spontaneous Respiratory Depth Normal Normal Blood Pressure Blood Pressure [Left Arm] 156/96 H 188/84 H Blood Pressure Mean Blood Pressure Mean [Left Arm] 116 118 Blood Pressure Position Blood Pressure Position [Left Arm] Sitting Sitting Pulse Oximetry 94 94 Oxygen Delivery Method Room Air Room Air Sepsis Recent Fever Within 48 Hours Sepsis New/Unexplained Change in Mental Status Sepsis Action Taken by Nursing Laboratory Data 12/13/23 10:48 12/13/23 10:48 Lab Results 12/13/23 12/13/23 Range/Units 10:48 12:47 WBC 4.71 L (4.8-10.8) K/ul RBC 4.68 (4.20-5.40) M/uL Hgb 14.0 (12.0-16.0) g/dl Hct 43.3 (37.0-47.0) % MCV 92.5 (80.0-100.0) fL MCH 29.9 (25.0-34.0) pg MCHC 32.3 (32.0-36.0) g/dL RDW Std Deviation 47.2 H (36.4-46.3) fL RDW Coeff of Veda 14.0 (11.5-14.5) % Plt Count 124 L (130-400) K/uL MPV 10.3 (9.4-12.4) fL Immature Gran % (Auto) 0.2 % Neut % (Auto) 61.9 % Lymph % (Auto) 28.0 % [place] % (Auto) 7.6 % Eos % (Auto) 1.9 % Baso % (Auto) 0.4 % Neut # (Auto) 2.91 (1.40-6.50) K/uL Lymph # (Auto) 1.32 (1.20-3.40) K/uL [place] # (Auto) 0.36 (0.11-0.59) K/uL Eos # (Auto) 0.09 (0.00-0.50) K/uL Baso # (Auto) 0.02 (0.00-0.20) K/uL Immature Gran # (Auto) 0.01 (0.01-0.20) K/uL Sodium 138 (136-145) mmol/L Potassium 4.2 (3.5-5.1) mmol/L Chloride 107 (98-107) mmol/L Carbon Dioxide 23 (21-32) mmol/L Anion Gap 8 (3-11) BUN 18 (6-23) mg/dl Creatinine 0.96 (0.6-1.2) mg/dl Est Cr Clr Drug Dosing 34.5 ml/min Est GFR ( Amer) 62.9 ml/min Est GFR (Non-Af Amer) 54.3 ml/min BUN/Creatinine Ratio 18.8 (10-20) Glucose 89 (70-99(Fasting)) mg/dl Calcium 10.2 (8.6-10.3) mg/dl Total Bilirubin 0.4 (0.2-1.0) mg/dl AST 18 (13-39) U/L ALT 9 (7-52) U/L Alkaline Phosphatase 92 (34-104) U/L Total Protein 7.4 (6.0-8.3) gm/dl Albumin 4.2 (3.4-5.0) gm/dl Globulin 3.2 (2.5-4.0) gm/dl Albumin/Globulin Ratio 1.3 (0.9-2) Urine Color Yellow Urine Appearance Clear (Clear) Urine pH 6.5 (4.5-7.5) Ur Specific Casey 1.007 (1.000-1.030) Urine Protein Negative (Negative) Urine Glucose (UA) Negative (Negative) Urine Ketones Negative (Negative) Urine Blood 1+ H (Negative) Urine Nitrite Negative (Negative) Urine Bilirubin Negative (Negative) Urine Urobilinogen Negative (Negative) Ur Leukocyte Esterase 3+ H (Negative) Urine WBC (Auto) >50 H (0-5) /hpf Urine RBC (Auto) 0-2 (0-2) /hpf U Hyaline Cast (Auto) 0-2 (0-2) /lpf U Epithel Cells (Auto) 0-2 (0-2) /hpf Urine Bacteria (Auto) 4+ H (None Seen) Imaging Data Radiologist's Impression: Duplex Scan Lower Extremity Artery 12/13/23 10:27 US arterial duplex LE LT CLINICAL HISTORY: left foot pain TECHNIQUE: Real-time grayscale and color and spectral Doppler ultrasound imaging of the left lower extremity arteries was performed. Measurements calculated based on NASCET criteria. COMPARISON: Comparison is made to Doppler ultrasound 08/15/2014 FINDINGS: No flow is seen throughout the entire length of the stent within the superficial femoral artery. Distal reconstitution is seen with flow measuring up to 299 cm percent in the distal superficial femoral artery. LEFT: Common femoral artery: Triphasic waveforms. Peak systolic velocity (PSV) 137 cm/s. Deep femoral artery: Triphasic waveforms. PSV 121 cm/s. Superficial femoral artery: Triphasic waveforms. PSV 0 cm/s. Popliteal artery: Monophasic waveforms. PSV 15 cm/s. Anterior tibial artery: Monophasic waveforms. PSV 21 cm/s. Posterior tibial artery: Monophasic waveforms. PSV 9 cm/s. Peroneal artery: Monophasic waveforms. PSV 14 cm/s. Dorsalis pedis: Monophasic waveforms. PSV 33 cm/s. IMPRESSION: There is no significant flow within the superficial femoral artery. Distal reconstitution is seen with minimal monophasic flow. ACT 112: Negative or not required by law. Electronically signed by: Gil Flores M.D. 12/13/2023 12:01 PM Foot X-Ray 12/13/23 10:27 XR foot LT min 3V routine CLINICAL HISTORY: l foot apin TECHNIQUE: 3 views of the left foot were obtained. Comparison: None available at the time of this dictation. FINDINGS: No fractures are present. Osteopenia and mild degenerative changes are seen. No soft tissue abnormality is seen. IMPRESSION: Degenerative changes without evidence of acute fracture. ACT 112: Negative or not required by law. Electronically signed by: Gil Flores M.D. 12/13/2023 11:17 AM Discharge Plan Visit Data Chief Complaint: Foot Injury/Pain Stated Complaint: LEFT FOOT PAIN ED Provider: Federico Wilson Discharge Problem: Claudication, Acute foot pain Discharge Instructions Ciera/Other Patient Handouts: ED Peripheral Artery Disease (PAD) Activity Restrictions/Additional Instructions: Please follow up with your primary care doctor with in the next 24 hours. Any worsening of your symptoms, please return to the ED immediately. This includes any fevers greater than 100.4, worsening pain, chest pain, shortness breath, persistent nausea, vomiting, unable to eat or drink, or any other concerning signs or symptoms from your standpoint. You were found to have a blood pressure greater than 120 systolic over 90 diastolic. Due to the new Medicare guidelines, we are now recommending that you follow up with your primary care doctor in regards to this elevated blood pressure. Please call Dr. Visnhu Mac office for further follow-up and set up an appointment as soon as you leave here. Forms Stand Alone Forms: [facility] Prescriptions Prescriptions: No Action metoprolol succinate 50 mg tablet extended release 24 hr 50 mg PO QAM clopidogrel 75 mg tablet 75 mg PO QAM acetaminophen [Tylenol Extra Strength] 500 mg Tablet 500 mg PO Q8 PRN (Reason: Pain) albuterol sulfate 90 mcg/actuation HFA aerosol inhaler 2 puff INHALATION Q4 PRN (Reason: Wheezing) rosuvastatin 40 mg tablet 40 mg PO QAM cholecalciferol (vitamin D3) 50 mcg (2,000 unit) capsule 2,000 unit PO QAM Referrals Referrals: Martin Mac MD [Physician] - William Rosario MD [Primary Care Provider] -
[2023-12-13 11:12] LABS: Basophils # (auto) 0.02 K/uL (0.00-0.20); Basophils % (auto) 0.4 %; Eosinophils # (auto) 0.09 K/uL (0.00-0.50); Eosinophils % (auto) 1.9 %; Hematocrit (blood only) 43.3 % (37.0-47.0); Immature Granulocytes # (auto) 0.01 K/uL (0.01-0.20); Immature Granulocytes % (auto) 0.2 %; Lymphocytes # (auto) 1.32 K/uL (1.20-3.40); Mean Corpuscular Hemoglobin 29.9 pg (25.0-34.0); Mean Corpuscular Hgb Conc 32.3 g/dL (32.0-36.0); Mean Corpuscular Volume 92.5 fL (80.0-100.0); Mean Platelet Volume 10.3 fL (9.4-12.4); Monocytes # (auto) 0.36 K/uL (0.11-0.59); Monocytes % (auto) 7.6 %; Neutrophils # (auto) 2.91 K/uL (1.40-6.50); Neutrophils % (auto) 61.9 %; Platelet Count 124 K/uL (130-400); RDW Standard Deviation 47.2 fL (36.4-46.3); Red Blood Count 4.68 M/uL (4.20-5.40); White Blood Count 4.71 K/ul (4.8-10.8)
--- NOTE | 2023-12-13 11:18 | XRay Report ---
XR foot LT min 3V routine CLINICAL HISTORY: l foot apin TECHNIQUE: 3 views of the left foot were obtained. Comparison: None available at the time of this dictation. FINDINGS: No fractures are present. Osteopenia and mild degenerative changes are seen. No soft tissue abnormali ty is seen. IMPRESSION: Degenerative changes without evidence of acute fracture. ACT 112: Negative or not required by law. Electronically signed by: Gil Flores M.D. 12/13/2023 11:17 AM
[2023-12-13 11:33] LABS: Albumin Globulin Ratio 1.3 (0.9-2); Albumin Level 4.2 gm/dl (3.4-5.0); BUN Creatinine Ratio 18.8 (10-20); Bilirubin,Total 0.4 mg/dl (0.2-1.0); Calcium 10.2 mg/dl (8.6-10.3); Creatinine Clr Calc Pharmacy 34.5 ml/min; Est GFR (African American) 62.9 ml/min; Est GFR (Non-African American) 54.3 ml/min; Globulin 3.2 gm/dl (2.5-4.0); Potassium 4.2 mmol/L (3.5-5.1); Total Protein 7.4 gm/dl (6.0-8.3)
--- NOTE | 2023-12-13 12:03 | Ultrasound Report ---
US arterial duplex LE LT CLINICAL HISTORY: left foot pain TECHNIQUE: Real-time grayscale and color and spectral Doppler ultrasound imaging of the left lower ex tremity arteries was performed. Measurements calculated based on NASCET criteria. COMPARISON: Comparison is made to Doppler ultrasound 08/15/2014 FINDINGS: No flow is seen throughout the entire length of the stent within the superficial femoral artery. Dist al reconstitution is seen with flow measuring up to 299 cm percent in the distal superficial femoral artery. LEFT: Common femoral artery: Triphasic waveforms. Peak systolic velocity (PSV) 137 cm/s. Deep femoral artery: Triphasic waveforms. PSV 121 cm/s. Superficial femoral artery: Triphasic waveforms. PSV 0 cm/s. Popliteal artery: Monophasic waveforms. PSV 15 cm/s. Anterior tibial artery: Monophasic waveforms. PSV 21 cm/s. Posterior tibial artery: Monophasic waveforms. PSV 9 cm/s. Peroneal artery: Monophasic waveforms. PSV 14 cm/s. Dorsalis pedis: Monophasic waveforms. PSV 33 cm/s. IMPRESSION: There is no significant flow within the superficial femoral artery. Distal reconstitution is seen wit h minimal monophasic flow. ACT 112: Negative or not required by law. Electronically signed by: Gil Flores M.D. 12/13/2023 12:01 PM
[2023-12-13 13:12] LABS: Appearance Urine Clear (Clear); Bacteria Urine Automated 4+ (None Seen); Bilirubin Urine Negative (Negative); Blood Urine 1+ (Negative); Cast Urine Automated 0-2 /lpf (0-2); Color Urine Yellow; Epithelial Cell Urine Auto 0-2 /hpf (0-2); Glucose Urine UA Negative (Negative); Ketones Urine Negative (Negative); Leukocyte Esterase Urine 3+ (Negative); Nitrite Urine Negative (Negative); Protein Urine Negative (Negative); RBC Urine Automated 0-2 /hpf (0-2); Specific Gravity Urine 1.007 (1.000-1.030); Urobilinogen Urine Negative (Negative); WBC Urine Automated >50 /hpf (0-5); pH Urine 6.5 (4.5-7.5)
[2023-12-13] MEDS: cefTRIAXone SODIUM 2,000 MG/50 ML BAG IV STA (15:01)
[2023-12-13] MEDS ORDERED: HEPARIN SOD (PORCINE) 1000 UNIT/ML IV ONE (15:09)
[2023-12-13 15:17] LABS: Partial Thromboplastin Time 26 Seconds (21-31); Prothrombin Time 10.4 Seconds (9.0-12.0)
[2023-12-13] MEDS: HEPARIN SODIUM/DEXTROSE 25,000 UNITS/500 ML BAG IV SCH (15:43)
[2023-12-13] MEDS: HEPARIN SOD (PORCINE) 1000 UNIT/ML IV ONE (15:44)
--- NOTE | 2023-12-13 17:15 | History & Physical Report ---
Date of Service December 13, 2023 Assessment & Plan (1) PAD (peripheral artery disease): Plan: Occluded left SFA stent with [place] category 3 claudication Remote right SFA angioplasty Occluded bilateral PTAs Prior left subclavian stent 2. CAD post redo CABGstable, denies angina 3. HypertensionHome on BB, elevated on admission 4. Dyslipidemiahigh intensity statin 5. AAA 3.2 cm with mural thrombus on most recent CT 01/2022, reportedly up-to-date 4 cm on OSH imaging 6. Sick sinus syndrome post pacemaker 7. Thrombocytopenia - chronic, 120s 8. UTIuncomplicated, started on ceftriaxone Patient here with recurrent/progressive claudication in the setting of left SFA stent reocclusion sometime within the last 2 months. Patient lives independently and symptoms significantly life-limiting Will plan to proceed with repeat angiogram and likely SFA intervention. Admit to telemetry for observation overnight Start heparin infusion Continue home clopidogrel, restart aspirin Continue home statin Continue Toprol, will add ARB Continue daily IV ceftriaxone, follow-up urine culture Will keep n.p.o. past midnight. Heparin off on-call to [employer] Center [employer]. Procedure likely around 8:30 AM History of Present Illness Primary Care Provider: William Rosario MD Ms. Lagos is a pleasant 83-year-old woman with a history of coronary artery disease post CABG and later redo CABG in 2006, sick sinus syndrome post pacemaker, hypertension, dyslipidemia and peripheral arterial disease post multiple lower extremity endovascular interventions seen today in the ED due to recurrent left lower extremity claudication. Patient was last seen by id 10/2017. Previously underwent atherectomy/DCB to left SFA occlusion 10/2015, DCB to right SFA 11/2015. 10/2016 underwent repeat angioplasty to left distal SFA with DCB and angioplasty to [place], MEDICAL CHEMIST occluded at that time. Patient recently had progressive recurrent claudication symptoms and was seen by [facility] vascular surgery, Dr. Lee. Per patient report underwent repeat intervention with long stent placement to SFA 08/2023. Following stent placement had improvement in exertional calf/foot pain. Had repeat duplex 09/2023 that showed widely patent stent. More recently over the last few weeks has noted recurrence of foot pain, limiting walking to <1 block. Denies any rest pain. No new ulcers. Due to symptoms presented to ED today. Repeat arterial duplex showed occluded SFA stent with distal SFA disease and monophasic/diminished infrapopliteal flow. Allergies Allergy/AdvReac Type Severity Reaction Status Date / Time Penicillins Allergy Intermediate ITCHY RASH Verified 12/13/23 13:00 ranitidine Allergy Intermediate rash Verified 12/13/23 13:00 levofloxacin [From Levaquin] Allergy Mild Rash Verified 12/13/23 13:00 doxycycline Allergy Unknown ON MED LIST Verified 12/13/23 13:00 amoxicillin AdvReac Intermediate SEVERE Verified 12/13/23 13:00 DIARRHEA cefadroxil AdvReac Mild Nausea Verified 12/13/23 13:00 Icbicca-KQK-NzX Reductase AdvReac Mild DIARRHEA Verified 12/13/23 13:00 Inhibitor [Xdinjrt-Nze-Nif Reductase Inhibitor] Home Medications Medication Instructions Recorded Confirmed Type clopidogrel 75 mg tablet 75 mg PO QAM 07/05/18 12/13/23 History metoprolol succinate 50 mg 50 mg PO QAM 07/05/18 12/13/23 History tablet,extended release 24 hr acetaminophen 500 mg tablet 500 mg PO Q8 PRN Pain 09/07/19 12/13/23 History (Tylenol Extra Strength) albuterol sulfate 90 mcg/actuation 2 puff inhalation Q4 PRN Wheezing 01/26/22 12/13/23 History aerosol inhaler cholecalciferol (vitamin D3) 50 2,000 unit PO QAM 12/13/23 12/13/23 History mcg (2,000 unit) capsule rosuvastatin 40 mg tablet 40 mg PO QAM 12/13/23 12/13/23 History Past Med/Surg History Problem List (Updated 12/13/23 @ 17:03 by Martin Mac MD) PAD (peripheral artery disease) Acute foot pain (Acute) Claudication (Acute) Complicated UTI (urinary tract infection) Acute UTI (Acute) Closed fracture of pubic ramus (Acute) Hypokalemia (Acute) COVID-19 (Acute) Dehydration (Acute) Hypertension (Chronic) Heart disease (Acute) Anxiety (Acute) Bilateral leg pain (Acute) Cystitis (Acute) Cystitis (Acute) Dysphagia (Acute) Dysphagia (Acute) Headache (Acute) Headache (Acute) Headache (Acute) Neck pain (Acute) PAD (peripheral artery disease) PAD (peripheral artery disease) Throat pain (Acute) Throat pain (Acute) Throat pain (Acute) UTI (urinary tract infection) (Acute) Family History Other Family history non-contributory Social History Smoking Status: Never smoker Tobacco Type: Cigarettes Hx Alcohol Use: No Hx Substance Use: No Preferred Language: Czech Communication Ability: Effective Conservation Coordinator Required: No Beliefs That Will Affect Care: None marital status: / Current Living Situation: Alone How many Children do You have: 3 Feels Safe at Home: Yes Assistive Devices: Walker Review of Systems Review of Systems: All systems reviewed & are unremarkable except as noted in HPI & below Physical Exam Physical Exam: General: Comfortable HEENT: Sclerae anicteric Lungs: Clear to auscultation bilaterally, Cardiac: Regular rate and rhythm, no murmurs. Vascular: 2+ radial bilaterally. 1+ right DIRECTOR PART, 2+ left DIRECTOR PART. 2+ right popliteal, diminished left popliteal. Nonpalpable DP/PT pulses bilaterally. Normal capillary fill bilaterally Abdomen: Soft, nontender Extremities: Well perfused, no peripheral edema Neuro: Nonfocal Psych: Alert orient x3, normal affect and mood Results & Data Results & Data Vital Signs (Past 12 Hours) Vital Signs Temp Pulse Pulse Resp BP BP Pulse Ox 12/13/23 14:37 60 18 188/84 H 94 12/13/23 13:11 60 18 156/96 H 94 12/13/23 10:52 62 18 150/70 H 92 12/13/23 10:47 60 12/13/23 10:29 98.2 F 63 18 154/89 H 92 O2 Del Method 12/13/23 14:37 Room Air 12/13/23 13:11 Room Air 12/13/23 10:52 Room Air 12/13/23 10:47 12/13/23 10:29 Room Air Code Status & VTE Plan VTE Prophylaxis Plan VTE Prophylaxis will be ordered: Yes PG Care Time/CCT Total # of Minutes Spent Total Time Spent with Patient: Total time spent is greater than 50% in coordination of care (as documented) at patient's floor/unit and/or counseling patient: Coding Level of Care Code 37165 INT INP/OBS CARE 2/55MIN Diagnoses PAD (peripheral artery disease) I73.9
[2023-12-13] MEDS ORDERED: ONDANSETRON INJ 2 MG/ML 2 ML VIAL IV PRN (17:17)
[2023-12-13] MEDS ORDERED: ALUMINUM/MAGNESIUM SUSP 30 ML UDC PO PRN (17:17)
[2023-12-13] MEDS ORDERED: ALBUTEROL HFA 8 GM INHALER INH PRN (17:21)
[2023-12-13] MEDS: LOSARTAN POTASSIUM 25 MG TAB PO ONE (18:30)
[2023-12-13] MEDS: Heparin IV Adult Wt-Based Low-Dose w/ INITIAL Bolus Protocol IV STA (18:55)
--- OUTSIDE RECORDS SUMMARY | 2023-12-13 21:36 | External Medical Summary | Summary of Care ---
Author Name Unknown Organization [facility] Address [address] [place] [address] Phone [phone] Care Team Providers Care Saw Grinder Name Role Phone William Rosario MD Primary Care Provider + Reason for Visit * Reason Onset Date Comments Advice 11/29/2023 Encounter Details Date Type Department Care Team (Late st Contact Info) Description 11/29/2023 Telephone Family Practice [facility] [address] [place] [address] William Rosario MD [address] [facility] [place] [id number] Advice Allergies Active Allergy Reactions Criticality Noted Date Comments Amoxicillin 07/26/2016 Cefadroxil Low 01/26/2022 Other reaction(s): Nausea, unknown Doxycycline 06/29/2021 Other reaction(s): ON MED LIST, unknown Cefadroxil Monohydrate 06/19/2007 Vomiting Levofloxacin Low 06/29/2021 Other reaction(s): Rash, unknown Penicillins Itching 10/05/2018 Ranitidine High 11/14/2013 rash Other reaction(s): rash, unknown Statins Diarrhea High 04/03/2012 documented as of this encounter (statuses as of 12/01/2023) Medications Medication Sig Dispensed Refills Start Date End Date Status Acetaminophen 500 MG Oral Tablet Take 1 Tablet by mouth. 09/02/2014 Active Clopidogrel Bisulfate 75 MG Oral Tablet (pLAVix)Indications:A therosclerosis of shawnee artery of both lower extremities with intermittent claudication (HCC) TAKE 1 TABLET BY MOUTH EVERY DAY 90 Tablet 3 03/27/2023 Active Rosuvastatin Calcium 40 MG Oral Tablet (Crestor) Take 1 Tablet by mouth in the morning. 90 Tablet 3 04/13/2023 Active Albuterol Sulfate HFA 108 (90 Base) MCG/ACT Inhalation Aerosol SolutionIndications:O ther emphysema (HCC) Inhale 2 Puffs by mouth every 4 hours as needed for Wheezing. 18 g 5 04/19/2023 Active Metoprolol Succinate ER 50 MG Oral Tablet Extended Release 24 Hour (toPROL XL)Indications:Athero sclerosis of shawnee artery of both lower extremities with intermittent claudication (HCC) TAKE 1 TABLET BY MOUTH EVERY DAY 90 Tablet 3 09/01/2023 Active Vitamin D3 50 MCG (1999 UT) Oral Capsule (Cholecalciferol) Take 1 Capsule by mouth in the morning. 90 Capsule 3 09/14/2023 Active documented as of this encounter (statuses as of 12/01/2023) Active Problems Problem Noted Date Diagnosed Date Subclavian vein stenosis 10/25/2022 Peripheral edema 10/25/2022 Left carotid bruit 10/25/2022 Pulmonary fibrosis 10/25/2022 Fluid retention 10/25/2022 COPD, group A, by GOLD 2017 classification 09/20 Overview: Per COPD GOLD Classification Depression, unspecified 08/31/2022 Infrarenal abdominal aortic aneurysm (AAA) witho ut rupture 08/13/2022 History of 2019 novel coronavirus disease (COVID -19) 06/29/2021 Overview: 07/04 Atherosclerosis of shawnee ar elie of both lower extremities with intermittent claudication 09/09/2020 Overview: 02/25 saw Alejandrina--started Pletal-didn't tolerate 11/25 declined surgery. Can consider in future: Bilateral lower extremity PAD with calf claudication. No inflow disease. Bilateral SFA stenosis. Chronic bilateral PT occlusions. Sinus node dysfunction 09/09/2020 POLST (Physician Orders for Life-Sustaining Deidre tment) 10/05/2018 Other emphysema 07/06/2018 Last Assessment & Plan: No current symptoms. O2 stable -albuterol PRN DNR (do not resuscitate) 03/13/2018 Typical atrial flutter 09/14/2017 Overview: 2018 Intermittent 2h noted -monitor per Dr Valenzuela ACEI/ARB contraindicated 10/14/2015 Overview: Low bp-monitor Lung nodules 06/29/2013 Overview: 08/25 stable from 2012. No further workup. Last Assessment & Plan: New 6 mm nodule found per ct -repeat CT 6 months. Already ordered Stenosis of left subclavian artery 08/21/2012 PAD (peripheral artery disease) 08/21/2012 Overview: 08/25 Arterial US [facility] +mid sup fem artery narrowing Well adult exam 03/15/2011 Overview: 02/02 AAA 3.3 cm. Wagner 2y. 09/02 declines DEXA (hx hip frx) 08/05 CT chest [facility] 1 y f/u ordered. 10/04 CT stable. Wagner 18-24 mos. 02/[address]--stable 3.2 cm infrarenal AAA-ck yearly. 06/2021 CT abd [facility]. 3.3 cm infrarenal AAA (stable per report?). 2014 2.9cm. 09/29 POLST/DNR. Ok for intubation for short term only if quality possible. 09/28 PFTs WNL 02/25 restart statin. Need wagner. +stress w/overdue copays/old bills w/[facility] 08/25 [facility] CTA ABd no severe occlusion 06/26 EGD-hiatal hernia, dilated. 11/23-CT chest r/o PE--sub CM nodules noted right middle lobe 7&8 mm--NEEDreck 6mo Needs Pcv23, shingles, eye screen 03/23--mammo, scope, dexa ordered---pt wants to defer scope for now ?cardiac questions. 2007 EF WNL Dyslipidemia, goal LDL below 70 05/27/2009 Overview: Per Lipid Taxonomy. Cardiac pacemaker in situ Chronic coronary artery disease Overview: Bypass and redo Last Assessment & Plan: Stable. No angina -continue plavix, metoprolol and statin HTN, goal below 140/90 documented as of this encounter (statuses as of 12/01/2023) Resolved Problems Problem Noted Date Diagnosed Date Resolved Date Hip pain, bilateral 10/26/2018 02/17/20 22 Peripheral artery disease 02/23/2018 Overview: duplicate Last Assessment & Plan: Does occasionally get let discomfort with long periods of walking. This is not new -follows with vascular COPD, severity to be determined 09/14/2017 07/06/2018 Thyroid nodule 06/02/2017 09/16/2017 Overview: 05/[address] [facility] [address] chest--notes 1.2cm nodule, 09/28 US--WNL. No nodule. Serum calcium elevated 02/09/201602/23 Overview: 01/26 ion ca, pth WNL, 24h urine ca low, likely [facility]. Referred endo Cataract 05/20/2015 05/12/2017 Recurrent UTI 11/30/2014 02/23/2018 Overview: May actually be vaginal infections causing bladder irritation. Kidney disease, chronic, sta ge III (GFR 30-59 ml/min) 08/26/2014 05/20/2015 Overview: Per CKD protocol #1 Atherosclerosis of leg with intermittent claudication 08/16/2014 01/29/2022 Overview: 02/25 saw Alejandrina--started Pletal-didn't tolerate 11/25 declined surgery. Can consider in future: Bilateral lower extremity PAD with calf claudication. No inflow disease. Bilateral SFA stenosis. Chronic bilateral PT occlusions. Sinus node dysfunction 07/24/201305/25 Cardiovascular symptoms 03/21/200808/2010 ASCVD (arteriosclerotic card iovascular disease) 07/18/2008 Overview: Resolved per Duplicate Protocol #2. ASCVD (arteriosclerotic card iovascular disease) 07/18/2008 Overview: Resolved per Duplicate Protocol #2. Other drug allergy(995.27) 1 PVD (peripheral vascular disease) 10/31/2023 Overview: Duplicate S/p stent to subclavian 06/19 Other drug allergy(995.27) 0 07/18/2008 Overview: Resolved per Duplicate Protocol #2. ASCVD (arteriosclerotic card iovascular disease) 07/18/2008 Overview: Resolved per Duplicate Protocol #2. Mixed dyslipidemia 9 Overview: Per Lipid Taxonomy. documented as of this encounter (statuses as of 12/01/2023) Immunizations Name Administration Dates Next Due Pneumococcal Conjugate Vacc, 13 Valent (Prevnar) 02/14/2015 Pneumococcal Polysaccharide PPV23 (Pneumovax) 02/01/2014 Seasonal Influenza, PF, 6 M & above, IM , (FluLaval or Fluzone) 03/11/2020,03/10/2018,05/12/2017 Seasonal Influenza, Quadriva lent, No Preserve, IM 02/26/2016 Seasonal Influenza, Split, I IV3, With Preserve, Inj 02/14/2015,04/17/2014,04/25/2013,04/03,03/15/2011,06/19/2007 Seasonal Influenza, Trivalen t, Adjuvanted, 65+ yrs 04/06/2019 TD - Tetanus/Diptheria (ADULT) 01/25/2007 TDAP (age 10 and older)(Boostrix) 03/18/2016 Varicella Zoster Vaccine (Adult) 08/06/2014 documented as of this encounter Social History Tobacco Use Types Packs/Day Years Used Date Smoking Tobacco: Former Cigarettes 1 20 0 07/12/1986 - 07/12/2006 Smokeless Tobacco: Never Alcohol Use Standard Drinks/Week Comments Not Currently 0 (1 standard drink = 0.6 oz pur e alcohol) rare-2x/year PHQ-2 Answer Date Recorded PHQ Adult Total Score 1 06/09/2023 Hunger Vital Sign Answer Date Recorded Within the past 12 months, y ou worried that your food would run out before you got the money to buy more. Never true 06/16/19 24 Within the past 12 months, t he food you bought just didn't last and you didn't have money to get more. Never true 06/16/2023 Childcare Answer Date Recorded Do you feel overwhelmed with taking care of a child, family member or friend? No 06/16/2023 Does your family need help f inding childcare? (Household - for ages 0-17 years) Not on file 06/16/2023 Clothing Answer Date Recorded Have you been unable to get clothing when it was really needed? No 06/16/2023 Is your family able to get c lothes or diapers when needed? (Household - for ages 0-17 years) Not on file 06/16/2023 Personal Safety Answer Date Recorded Do you feel unsafe or have concerns for your saf ety? No 06/16/2023 Do you have concerns for you r family's safety? (Household - for ages 0-17 years) Not on file 06/16/2023 Utilities Answer Date Recorded Do you have trouble paying y our heating, water, or electric bill? No 06/16/2023 Is your family able to pay t he heat, water, or electric bill? (Household - for ages 0-17 years) Not on file 06/16/2023 Does your family have access to good internet? (Household - for ages 0-17 years) Not on file 06/16/2023 Employment Status Answer Date Recorded Are you unemployed or without regular income? No 06/16/2023 Does the household have a re gular source of income? (Household - for ages 0-17 years) Not on file 06/16/2023 Social Connections Answer Date Recorded How often do you feel lonely or isolated from th ose around you? Never 06/16/2023 Financial Resource Strain Answer Date R ecorded Do you have any trouble payi ng for your medications, or do you think you might in the future? No 06/16/2023 Does your family have troubl e paying for medicine? (Household - for ages 0-17 years) Not on file 06/16/2023 Transportation Needs Answer Date Record ed READ ONLY Do you have troubl e getting a ride to medical visits or work? Sometimes True 06/16/2023 Does your family have a hard time getting a ride to doctors visits? (Household - for ages 0-17 years) Not on file 06/16/2023 Has lack of transportation k ept you from medical appointments, meetings, work, or from getting things needed for daily living? Check all that apply. (Adult - for ages 18 years and over) Not on file 06/16/2023 Do you (or your family) have trouble finding or paying for a ride (transportation)? (Household - for ages 0-17 years) Not on file 06/16/2023 Housing Stability Answer Date Recorded Do you currently live in a s helter or have no steady place to sleep at night? No 06/16/2023 READ ONLY Do you think you a re at risk of becoming homeless? No 06/16/2023 Does your family worry about paying for your home or becoming homeless? (Household - for ages 0-17 years) Not on file 0 06/16/2023 Are you homeless or worried that you might be in the future? (Adult - for ages 18 years and over) Not on file Are you (or your family) abbie eless or worried that you might be in the future? (Household - for ages 0-17 years) Not on file Food Insecurity Answer Date Recorded Do you need food for this week? No 06/16/2023 Are you able to get enough f ood for your family? (Household - for ages 0-17 years) Not on file 06/16/2023 Does your family need food t his week? (Household - for ages 0-17 years) Not on file 06/16/2023 Do you always have enough fo od for your family? (Household - for ages 0-17 years) Not on file 06/16/2023 Sex and Gender Information Value Date Recorded Sex Assigned at Female 08/31/2022 1:47 PM EDT Gender Identity Female 08/31/2022 1:47 PM EDT Sexual Orientation Straight 08/31/2022 1: 47 PM EDT Job Start Date Occupation Industry Not on file Not on file Not on file documented as of this encounter Miscellaneous Notes * Telephone Encounter - Kelly Garcia RN - 12/01/2023 2:53 PM EDT Attempted to call patient back, no answer. TR. * Telephone Encounter - William Rosario MD - 11/29/2023 12:58 PM EDT Kelly--can you/we review? She lives at [facility] * Telephone Encounter - Flaca Tom LPN - 11/29/2023 10:47 AM EDT Patient calling in stating that she does not drive and [facility] had a meeting last night and they will no longer be transporting to [facility]. Patient is concerned that she will have to switch providers/health care facilities. She said that [facility] no longer transports to the hospital either but there is a shuttle that she can catch but she has to walk 3 blocks just to be able to go to the hospital. She wanted PCP aware of this change. This will occur in the Fall, starting in January. She said that she is eligible to take the [facility] and [facility] but you have to give them 24 hour notice- they do not come to the patient's door. You have to walk a couple blocks to be able to get to their van. documented in this encounter Plan of Treatment Upcoming Encounters Date Type Department Care Team (Late st Contact Info) Description 12/28/2023 1:00 PM EDT Imaging Vascular Lab, [facility] [address] [place] [address] 12/28/2023 2:00 PM EDT Imaging Vascular Lab, [address] [place] [address] 01/04/2024 11:10 AM EDT Office Visit Vascular Surgery, [facility] [address] [facility] [place] [address] Fernandez Lee MD [address] [place] [address] 02/21/2024 10:00 AM EDT Nurse Only Ancillary [facility] [address] [facility] [place] [address] [facility], Nurse Annual Wellness [address] [place] [address] 05/07/2024 9:30 AM EST Office Visit Cardiology, [facility] [address] [facility] [place] [address] Michael Ace MD [address] [place] [place] [address] 06/15/2024 12:20 PM EST Office Visit Family Practice [facility] [address] [facility] [place] [address] [facility] [address] [facility] [address] Health Maintenance Due Date Last Done Comments DXA Scan 1940 Zoster Vaccines (2 of 3) 10/01/2014 08/06/2014 Influenza Vaccine (FLU shot) (Season Ended) 2024 03/11/2020, 04/06/2019, 03/10/2018, Additional history exists Depression Monitoring 06/09/2024 06/09/2023 GFR 06/09/2024 06/09/2023, 02/0 12/2022, 02/11/2022, Additional history exists O2 ASSESSMENT COMPLETED IN PAST YEAR FOR COPD 08/28/2024 08/29/2023 Albumin/Creatinine Ratio 07/20/2025 07/20/2022 DTaP,Tdap,and Td Vaccines (2 - Td or Tdap) 03/18/2026 03/18/2016, 01/25/2007 Pneumococcal Vaccine: 65+ Years Completed 02/14/2015, 02/01/2014 Alpha-1 Antitrypsin Completed 07/20/2022, 2 COVID-19 Vaccine Discontinued GARDASIL-HPV IMMUNIZATION SERIES Aged Out No longer eligible based on patient's age to complete this topic Hepatitis B Aged Out No longer eligi ble based on patient's age to complete this topic MENINGOCOCCAL (MENACTRA/MENVEO) Aged Out No longer eligible based on patient's age to complete this topic documented as of this encounter Medical Devices Implanted Type Area Plastic Surgery Nurse Device Identifier Shelf Expiration Date Model / Serial / Lot Stent Innova [id number] - [id number] Implanted:Qty: 1 on 08/29/2023 by Fernandez Lee MD at OR [facility] Left: [facility] [employer] [id number] 02/10/2028 [id number] / / [id number] Stent Innova [id number] - [id number] Implanted:Qty: 1 on 08/29/2023 by Fernandez Lee MD at OR [facility] Left: [facility] [employer] [id number] 02/10/2028 [id number] / / [id number] documented as of this encounter Advance Directives Documents on File Type Date Recorded Patient Speech Language Therapist Expl anation POLST 10/05/2018 POLST Healthcare Agents on File Name Relationship Healthcare Agent [facility] Communication [facility] Power of Atto rney Care Teams Saw Grinder Relationship Specialty Start Date End Date William Rosario MD [address] [place] [id number] PCP - General Family Medicine 08/06/14 documented as of this encounter
[2023-12-14] MEDS: SODIUM CHLORIDE 0.9% 1,000 ML IV SCH ×2 (01:43→13:17)
[2023-12-14 06:53] LABS: BUN Creatinine Ratio 19.3 (10-20); Calcium 9.1 mg/dl (8.6-10.3); Creatinine Clr Calc Pharmacy 41.7 ml/min; Est GFR (African American) 75.1 ml/min; Est GFR (Non-African American) 64.8 ml/min; Potassium 4.3 mmol/L (3.5-5.1)
[2023-12-14 07:14] LABS: ANTI-Xa, UFH(UnfractionatedHep 0.37 IU/ml (0.3-0.7)
--- NOTE | 2023-12-14 07:54 | Pre Anesthesia Assessment ---
Date of Service December 14, 2023 Pre Sedation Assessment Vital Signs Temp Pulse Pulse Resp BP BP Pulse Ox 12/14/23 07:34 98.4 F 63 18 117/67 92 12/14/23 07:31 98.3 F 60 18 127/68 94 12/14/23 02:46 97.7 F 61 18 148/74 H 94 12/13/23 22:54 97.9 F 60 16 123/63 94 12/13/23 20:30 60 12/13/23 20:00 98.1 F 62 16 138/61 93 12/13/23 20:00 63 16 140/65 94 12/13/23 19:00 65 18 148/65 H 91 12/13/23 17:58 60 13 149/70 H 92 12/13/23 17:58 60 16 92 12/13/23 17:16 60 16 140/70 93 12/13/23 17:12 60 20 92 12/13/23 17:01 140/70 12/13/23 17:00 60 15 95 12/13/23 16:30 143/74 H 12/13/23 16:30 143/74 H 12/13/23 16:30 60 17 95 12/13/23 16:06 60 19 92 12/13/23 16:00 146/73 H 12/13/23 15:54 60 16 92 12/13/23 15:12 63 20 96 12/13/23 14:43 166/59 H 12/13/23 14:37 60 18 188/84 H 94 12/13/23 13:24 60 13 96 12/13/23 13:11 60 18 156/96 H 94 12/13/23 10:52 62 18 150/70 H 92 12/13/23 10:47 60 12/13/23 10:29 98.2 F 63 18 154/89 H 92 O2 Del Method 12/14/23 07:34 Room Air 12/14/23 07:31 Room Air 12/14/23 02:46 Room Air 12/13/23 22:54 Room Air 12/13/23 20:30 12/13/23 20:00 Room Air 12/13/23 20:00 Room Air 12/13/23 19:00 Room Air 12/13/23 17:58 Room Air 12/13/23 17:58 Room Air 12/13/23 17:16 Room Air 12/13/23 17:12 12/13/23 17:01 12/13/23 17:00 12/13/23 16:30 12/13/23 16:30 12/13/23 16:30 12/13/23 16:06 12/13/23 16:00 12/13/23 15:54 12/13/23 15:12 12/13/23 14:43 12/13/23 14:37 Room Air 12/13/23 13:24 12/13/23 13:11 Room Air 12/13/23 10:52 Room Air 12/13/23 10:47 12/13/23 10:29 Room Air Cardiovascular + regular rate Respiratory + respiratory effort normal Pre-Sedation Airway Assessment Smoking Status: Former smoker Hx Sleep Apnea: No Hx Difficult Intubation: No Short, Thick Neck: No Thyromental Distance: < 3.5 Finger Breadths Oral Cavity: + Dentures Mallampati Class: II ASA: ASA3 NPO Status Date of Last Intake of Fluids: 12/13/23 Time of Last Intake of Fluids: 19:00 Date of Last Intake of Solid Food: 12/13/23 Time of Last Intake of Solid Foods: 17:00 Procedure Planning Contraindications for Sedation: none Current Medications Reviewed: Yes Notes The planned sedation has been discussed with the patient. Informed Consent was obtained. I have identified the patient, determined the appropriateness of sedation and have assessed the patient immediately prior to the procedure. All medicine(s) and interventions are by my order.
[2023-12-14] MEDS: LIDOCAINE 1% LOCAL 20 ML VIAL ONE (09:53)
[2023-12-14] MEDS: fentaNYL citrate PF 100 MCG/2 ML VIAL ONE (11:02)
[2023-12-14] MEDS: HEPARIN (PORCINE) 1000 UNIT/ML 10 ML (CATH LAB USE ONLY) ONE (11:03)
[2023-12-14] MEDS: MIDAZOLAM HCL 1 MG/ML 2ML VIAL ONE ×2 (11:03→11:11)
[2023-12-14] MEDS: NITROGLYCERIN/D5W 100MCG/ML 20ML SYR ONE (11:04)
[2023-12-14] MEDS: niCARdipine HCL INJ 2.5 MG/ML 10 ML AMP ONE (11:04)
[2023-12-14] MEDS: diphenhydrAMINE 50 MG/ML VIAL ONE (11:07)
[2023-12-14] MEDS: OPTIRAY 350 ONE (11:08)
[2023-12-14] MEDS: ASPIRIN 81 MG ECTAB PO SCH (11:30)
[2023-12-14] MEDS: CLOPIDOGREL BISULFATE 75 MG TAB PO SCH (11:30)
--- NOTE | 2023-12-14 12:14 | Post Anesthesia Assessment ---
Date of Service December 14, 2023 Post Sedation Assessment Vital Signs Temp Pulse Pulse Resp BP BP Pulse Ox 12/14/23 11:40 63 14 165/69 H 93 12/14/23 11:24 67 14 152/66 H 94 12/14/23 07:34 98.4 F 63 18 117/67 92 12/14/23 07:31 98.3 F 60 18 127/68 94 12/14/23 02:46 97.7 F 61 18 148/74 H 94 12/13/23 22:54 97.9 F 60 16 123/63 94 12/13/23 20:30 60 12/13/23 20:00 98.1 F 62 16 138/61 93 12/13/23 20:00 63 16 140/65 94 12/13/23 19:00 65 18 148/65 H 91 12/13/23 17:58 60 13 149/70 H 92 12/13/23 17:58 60 16 92 12/13/23 17:16 60 16 140/70 93 12/13/23 17:12 60 20 92 12/13/23 17:01 140/70 12/13/23 17:00 60 15 95 12/13/23 16:30 143/74 H 12/13/23 16:30 143/74 H 12/13/23 16:30 60 17 95 12/13/23 16:06 60 19 92 12/13/23 16:00 146/73 H 12/13/23 15:54 60 16 92 12/13/23 15:12 63 20 96 12/13/23 14:43 166/59 H 12/13/23 14:37 60 18 188/84 H 94 12/13/23 13:24 60 13 96 12/13/23 13:11 60 18 156/96 H 94 O2 Del Method 12/14/23 11:40 Room Air 12/14/23 11:24 Room Air 12/14/23 07:34 Room Air 12/14/23 07:31 Room Air 12/14/23 02:46 Room Air 12/13/23 22:54 Room Air 12/13/23 20:30 12/13/23 20:00 Room Air 12/13/23 20:00 Room Air 12/13/23 19:00 Room Air 12/13/23 17:58 Room Air 12/13/23 17:58 Room Air 12/13/23 17:16 Room Air 12/13/23 17:12 12/13/23 17:01 12/13/23 17:00 12/13/23 16:30 12/13/23 16:30 12/13/23 16:30 12/13/23 16:06 12/13/23 16:00 12/13/23 15:54 12/13/23 15:12 12/13/23 14:43 12/13/23 14:37 Room Air 12/13/23 13:24 12/13/23 13:11 Room Air Recovery Score Activity: Moves 4 extremities Respiration: Deep Breath/Cough Circulation: +/-20% PreAnes Value Consciousness: Fully Awake Oxygen Saturation: > 92% On Room Air Post Anesthesia Score: 10 Discharge Sedation Level of Care: Fast Track Phase II Post Sedation Plan On clinical assessment, the patient appears to have tolerated the sedation without complications. Patient is recovering as anticipated. Patient will continue to be monitored by nursing and may be discharged when sedation discharge criteria are met per below protocol. Upon Completions of procedure up to 15 minutes continue every 5 minute vital signs and the P.A.R. score; then discharge to a Phase I or Fast Track to Phase II per the following guidelines: * Discharge Patient to appropriate Phase II area if PAR is 8 or greater or return to pre- procedure baseline. The post - procedure orders will be as directed. * If PAR score is less than 8 or not return to pre-procedure baseline then patient will follow Phase I monitoring till PAR is reached for Phase II. The Phase I may be done in procedure room or may call to secure a Phase I area. * If naloxone or flumazenil are used for reversal, hold in Phase I for continued monitoring from when last reversal dose was given for a minimum of 60 minutes or longer pending the nurse and/or physician discretion of patient condition before discharge to Phase II. Please call the Sedation Physician to re-evaluate and complete post-note for discharge to Phase II area. Do NOT discharge from procedure sedation or Phase 1 until post- sedation evaluation note is complete by procedure /sedation MD Sedation Discharge Instructions to be given to the patient at discharge to home.
--- NOTE | 2023-12-14 12:33 | Endovascular Procedure Note ---
PG Endovascular Procedure Rpt Pre & Post Diagnosis Peripheral artery disease I identified the patient and participated in the time-out.: No Procedure Operation Date: 12/14/23 08:00 Actual Procedures p Cineradiography w/Routine Exam - MD fausto Stanley Angio Extremity Unilateral - MD fausto Stanley Fem Pop Stent Balloon Atherect - Martin Mac MD Surgeon Martin Mac MD Adobe Flex Developer Deibler Estimated Blood Loss 25 Findings See Below Abdominal aorta--torturous, infrarenal abdominal aortic aneurysm Right lower extremity-- -Common iliac patent -External iliacpatent with 30% distal disease -Internal iliacpatent -CFA30% disease Proximal profunda widely patent Left lower extremity-- -Common iliacpatent 20% disease -External iliac30% mid to distal disease -Internal iliacaneurysmal proximal segment -MANAGER OF ENVIRONMENTAL SERVICES, profunda widely patent -[id number]% occlusion of prior stents from SFA ostium to distal segment. Distal SFA/popliteal junction reconstitutes via collaterals -Poplitealpatent with mild disease -ATAwidely patent to the foot -PTAoccluded -Peronealwidely patent in the foot Anesthesia Type RN Sedation Radiation Exposure (mGv) Radiation (mGy): 208 Contrast Contrast: 115 Complications none Disposition Accompanied Patient To Recovery: Yes Disposition: Wrapper Off Holding Description of Procedure Right MANAGER OF ENVIRONMENTAL SERVICES access obtained under ultrasound guidance, short 5Fr sheath placed Abdominal aortogram and proximal left lower extremity angiogram performed with RIM catheter. 6 Fr 45 cm destination sheath placed from right MANAGER OF ENVIRONMENTAL SERVICES to left MANAGER OF ENVIRONMENTAL SERVICES. Left SFA occluded stents crossed with glide advantage wire and quick cross support catheter. Distal lower extremity angiography via quick cross placed in the popliteal Atherectomy of in-stent occlusive disease with RotaRex (2 passes) Post arthrectomy reestablished SFA/popliteal flow with residual proximal stent stenosis and severe stenosis at distal aspect of prior stents Garcia IVUS catheter placed to popliteal. Pullback revealed mildly calcified severe disease at distal edge of prior stent. Mild residual thrombus in proximal aspect of stent. Mid/proximal portion of stents appeared mildly underexpanded. Angioplasty of entire length of SFA including stents and distal nondistended disease with 5.0 x 300 mm Lutonix drug-eluting balloon Post balloon inflation appeared to have flow-limiting dissection in distal SFA after stents Distal SFA stented with 5.5 x 60 mm Supera stent which overlapped distal aspect of prior stents Stent postdilated with 6.0 balloon. Proximal aspect of previously placed stent further postdilated with 6.0 balloon. Post procedure good angiographic result, stents well-expanded, no evidence of dissection and brisk 2 vessel run-off. Contrast used: 115 Moderate sedation: [id number] Access closure: StarClose Summary: 1. Left lower extremity --100% occlusion of prior ostial to distal SFA stents. Two-vessel runoff to the foot (occluded SENIOR SAFETY SUPPORT MANAGER). 2. Right lower extremity --widely patent iliacs. 30% diffuse MANAGER OF ENVIRONMENTAL SERVICES disease 3. Successful atherectomy (rotarex), angioplasty (5 x 300mm Lutonix drug-eluting balloon) of SFA stent occlusion with placement of additional overlapping stent to distal SFA (5.5 x 60 mm Supera). Recommendations: Continue DAPT with ASA/Clopidogrel. On discharge will at PAD dose Xarelto 2.5mg BID Follow-up non-invasive vascular testing in 2 weeks. I attest to the content of the Intraoperative Record and any orders documented therein. Any exceptions are noted below. Vascular Charges Angiography/Venography Procedure 1: Angiography/Venography charges: 63690 Aortography, abd + b/l iliofem LE, catheter, radiological S&I Procedure 2: Angiography/Venography charges: [id number] Initial 3rd order or selective abd, pelvic, or LE branch Lower Extremity Interventions Procedure 1: Lower Extremity Intervention charges: [id number] Stent plcmt + atherectomy, femoral, popliteal artery, unilateral Additional Services Procedure 1: Additional Services Charges: 98177 IVUS - Each additional noncoronary vessel Procedure 2: Additional Services Charges: 54933 Moderate sedation initial 15 min Procedure 3: Additional Services Charges: 51595 Moderate sedation, each additional 15 min Procedure 4: Additional Services Charges: 28661 Ultrasound guidance - vascular access
--- NOTE | 2023-12-14 12:46 | Vascular Medicine ProgressNote ---
Date of Service December 14, 2023 Assessment & Plan (1) PAD (peripheral artery disease): Plan: Occluded left SFA stent with [place] category 3 claudication Remote right SFA angioplasty Occluded bilateral PTAs Prior left subclavian stent 2. CAD post redo CABGstable, denies angina 3. HypertensionHome on BB, elevated on admission 4. Dyslipidemiahigh intensity statin 5. AAA 3.2 cm with mural thrombus on most recent CT 01/2022, reportedly up-to-date 4 cm on OSH imaging 6. Sick sinus syndrome post pacemaker. History SVT 7. Thrombocytopenia - chronic, 120s 8. UTIuncomplicated, started on ceftriaxone Post successful intervention to LT SFA occlusion. -- Can d/c heparin drip -- Continue clopidogrel, ASA -- On discharge start PAD dose Xarelto Continue home statin Continue Toprol, ARB Will transition to PO abx for UTI. Possible discharge today or tomorrow morning. Admission and Anticipated Discharge Date Admission Date: December 13, 2023 Subjective Procedure uncomplicated today. No complaints post procedure. Review of Systems Review of Systems: All systems reviewed & are unremarkable except as noted in Subjective Physical Exam Physical Exam: General: Comfortable HEENT: Sclerae anicteric Lungs: Clear to auscultation bilaterally, Cardiac: Regular rate and rhythm, no murmurs. Vascular: 2+ radial bilaterally. 2+ TABLET MAKING MACHINE OPERATOR bilaterally. Palpable LT DP pulse. Abdomen: Soft, nontender Extremities: Well perfused, no peripheral edema Neuro: Nonfocal Psych: Alert orient x3, normal affect and mood Results & Data Vital Signs (Past 12 Hours) Vital Signs Temp Pulse Resp BP Pulse Ox O2 Del Method 12/14/23 12:00 66 16 126/79 96 Room Air 12/14/23 11:40 63 14 165/69 H 93 Room Air 12/14/23 11:24 67 14 152/66 H 94 Room Air 12/14/23 07:34 98.4 F 63 18 117/67 92 Room Air 12/14/23 07:31 98.3 F 60 18 127/68 94 Room Air 12/14/23 02:46 97.7 F 61 18 148/74 H 94 Room Air PG Care Time/CCT Total # of Minutes Spent Total Time Spent with Patient: Total time spent is greater than 50% in coordination of care (as documented) at patient's floor/unit and/or counseling patient: Coding Level of Care Code 75139 SUB INP/OBS CARE MIN Diagnoses PAD (peripheral artery disease) I73.9
[2023-12-14] MEDS: ASPIRIN 81 MG CHEW ONE (12:49)
[2023-12-14] MEDS: CLOPIDOGREL BISULFATE 75 MG TAB ONE (12:49)
[2023-12-14] MEDS: LIDOCAINE 1%/EPINEPHRINE 1:100,000 50 ML VIAL ONE (12:49)
--- OUTSIDE RECORDS SUMMARY | 2023-12-14 14:03 | External Medical Summary | Summary of Care ---
Author Name Unknown Organization [facility] Address [address] [place] [address] Phone [phone] Care Team Providers Care Sales Administration Manager Name Role Phone William Rosario MD Primary Care Provider + Reason for Visit * Reason Onset Date Comments Advice 12/13/2023 Encounter Details Date Type Department Care Team (Late st Contact Info) Description 12/13/2023 Telephone Family Practice [facility] [address] [place] [id number] William Rosario MD [address] [facility] [place] [phone] Advice Allergies Active Allergy Reactions Criticality Noted Date Comments Amoxicillin 07/26/2016 Cefadroxil Low 01/26/2022 Other reaction(s): Nausea, unknown Doxycycline 06/29/2021 Other reaction(s): ON MED LIST, unknown Cefadroxil Monohydrate 06/19/2007 Vomiting Levofloxacin Low 06/29/2021 Other reaction(s): Rash, unknown Penicillins Itching 10/05/2018 Ranitidine High 11/14/2013 rash Other reaction(s): rash, unknown Statins Diarrhea High 04/03/2012 documented as of this encounter (statuses as of 12/13/2023) Medications Medication Sig Dispensed Refills Start Date End Date Status Acetaminophen 500 MG Oral Tablet Take 1 Tablet by mouth. 09/02/2014 Active Clopidogrel Bisulfate 75 MG Oral Tablet (pLAVix)Indications:A therosclerosis of [place] artery of both lower extremities with intermittent [...] Release 24 Hour (toPROL XL)Indications:Athero sclerosis of [place] artery of both lower extremities with intermittent claudication (HCC) TAKE 1 TABLET BY MOUTH EVERY DAY 90 Tablet 3 09/01/2023 Active Vitamin D3 50 MCG (1999 UT) Oral Capsule (Cholecalciferol) Take 1 Capsule by mouth in the morning. 90 Capsule 3 09/14/2023 Active documented as of this encounter (statuses as of 12/13/2023) Active Problems Problem Noted Date Diagnosed Date Subclavian vein stenosis 10/25/2022 Peripheral edema 10/25/2022 Left carotid bruit 10/25/2022 Pulmonary fibrosis 10/25/2022 Fluid retention 10/25/2022 COPD, group A, by GOLD 2017 classification 09/20 Overview: Per COPD GOLD Classification Depression, unspecified 08/31/2022 Infrarenal abdominal aortic aneurysm (AAA) witho ut rupture 08/13/2022 History of 2019 novel coronavirus disease (COVID -19) 06/29/2021 Overview: 07/04 Atherosclerosis of [place] ar elie of both lower extremities with [...] artery disease) 08/21/2012 Overview: 08/25 Arterial US [facility] +mid sup fem artery narrowing Well adult exam 03/15/2011 Overview: 02/02 AAA 3.3 cm. Wagner 2y. 09/02 declines DEXA (hx hip frx) 08/05 CT chest [facility] 1 y f/u ordered. 10/04 CT stable. Wagner 18-24 mos. 02/[address]--stable 3.2 cm infrarenal AAA-ck yearly. 06/2021 CT abd [facility]. 3.3 cm infrarenal AAA (stable per report?). 2014 2.9cm. 09/29 POLST/DNR. Ok for intubation for short term only if quality possible. 09/28 PFTs WNL 02/25 restart statin. Need wagner. +stress w/overdue copays/old bills w/[facility] 08/25 [facility] CTA ABd no severe occlusion 06/26 EGD-hiatal [...] as of this encounter (statuses as of 12/13/2023) Resolved Problems Problem Noted Date Diagnosed Date Resolved Date Hip pain, bilateral 10/26/2018 02/17/20 22 Peripheral artery disease 02/23/2018 Overview: duplicate Last Assessment & Plan: Does occasionally get let discomfort with long periods of walking. This is not new -follows with vascular COPD, severity to be determined 09/14/2017 07/06/2018 Thyroid nodule 06/02/2017 09/16/2017 Overview: 05/[address] [facility] [address] chest--notes 1.2cm nodule, 09/28 US--WNL. No [...] as of this encounter (statuses as of 12/13/2023) Immunizations Name Administration Dates Next Due Pneumococcal [...] encounter Miscellaneous Notes * Telephone Encounter - Kanika Serna LPN - 12/13/2023 9:30 AM EDT Received call from Arminda with the nurse line. Spoke with Dr. Telles regarding patient. Dr. Telles recommends ER for evaluation. Concerned for DVT, fx--with terrible pain & pt being unableto walk. Arminda notified-will inform patient. * Telephone Encounter - Arminda Brenner LPN - 12/13/2023 9:15 AM EDT Patient states that she tried to call her caser up, Kelly but her VM was full Patient is having terrible left leg pain, starts in the calf and down to arch of foot She is not able to even walk because the pain is so bad She has to crawl around on the floor to get to the bathroom Patient is crying She has had angioplasty done in due to a blockage in this leg But the calf of her leg was really hard and it felt like she had a cristiana horse in it yesterday She then said that this all started over the weekend No swelling or redness noted Called office, spoke to Kanika, Advised per Dr. Telles that patient needs to go to the ER now. Pt aware and agreeable. She is going to try to get her daughter to take her to [facility] ER and if not then she will call for anambulance FYI to Fitness Coach documented in this encounter Plan of Treatment Upcoming Encounters Date Type Department Care Team (Late st Contact Info) Description 12/28/2023 1:00 PM EDT Imaging Vascular Lab, [facility] 2nd [facility], [address] [place] [address] 12/28/2023 2:00 PM EDT Imaging Vascular Lab, [address], [address] [place] [address] 01/04/2024 11:10 AM EDT Office Visit Vascular Surgery, [facility] [address] [facility] [place] [address] Fernandez Lee MD [address] [place] [address] 02/21/2024 10:00 AM EDT Nurse Only Ancillary [facility] [address] [facility] [place] [address] [facility], Nurse Annual Wellness [address] [place] [address] 05/07/2024 9:30 AM EST Office Visit Cardiology, [facility] [address] [facility] [place] [address] Michael Ace MD [address] [facility] [place] [address] 06/15/2024 12:20 PM EST Office Visit Family Practice [facility] [address] [facility] [place] [address] William Rosario MD [address] [facility] [place] [address] Health Maintenance Due Date Last Done Comments DXA Scan 1940 Zoster Vaccines (2 of 3) 10/01/2014 08/06/2014 Influenza Vaccine (FLU shot) (#1) 2024 03/11/2020, 04/06/2019, 03/10/2018, Additional history exists Depression Monitoring 06/09/2024 06/09/2023 GFR 06/09/2024 06/09/2023, 0212/2022, 02/11/2022, Additional history exists O2 ASSESSMENT COMPLETED [...] this encounter Medical Devices Implanted Type Area Licensed Marriage And Family Therapist Device Identifier Shelf Expiration Date Model / Serial / Lot Stent Innova [id number] - [id number] Implanted:Qty: 1 on 08/29/2023 by Fernandez Lee MD at [place] [facility] [place]: [facility] [employer] [id number] 02/10/2028 [id number] / / [id number] Stent Innova [id number] - [id number] Implanted:Qty: 1 on 08/29/2023 by Fernandez Lee MD at [place] [facility] [place] Left: [facility] [employer] [id number] 02/10/2028 [id number] / / [id number] documented as of this encounter Advance Directives Documents on File Type Date Recorded Patient Straightening Roll Operator Expl anation POLST 10/05/2018 POLST Healthcare Agents on File Name Relationship Healthcare Agent Relationshi p Communication [facility] Health Care Power of Atto yee Care Teams Sales Administration Manager Relationship Specialty Start Date End Date William Rosario MD [address] [place] [address] PCP - General Family Medicine 08/06/14 documented as of this encounter
[2023-12-14] MEDS: ACETAMINOPHEN 325 MG TAB PO PRN (14:11)
[2023-12-14] MEDS: METOPROLOL SUCC 50MG EXT REL TAB PO SCH (14:12)
[2023-12-14] MEDS: ROSUVASTATIN CALCIUM 20 MG TAB PO SCH (14:12)
[2023-12-14] MEDS: LOSARTAN POTASSIUM 25 MG TAB PO SCH (14:12)
[2023-12-14] MEDS: cefTRIAXone SODIUM 1,000 MG/50 ML BAG IV SCH (14:14)
--- NOTE | 2023-12-15 00:04 | Discharge Summary ---
Date of Service December 14, 2023 Admission HPI Per Admitting Provider Ms. Lagos is a pleasant 83-year-old woman with a history of coronary artery disease post CABG and later redo CABG in 2006, sick sinus syndrome post pacemaker, hypertension, dyslipidemia and peripheral arterial disease post multiple lower extremity endovascular interventions seen today in the ED due to recurrent left lower extremity claudication. Patient was last seen by me 10/2017. Previously underwent atherectomy/DCB to left SFA occlusion 10/2015, DCB to right SFA 11/2015. 10/2016 underwent repeat angioplasty to left distal SFA with DCB and angioplasty to SALVADOR, PILING CUTTER occluded at that time. Patient recently had progressive recurrent claudication symptoms and was seen by [facility] vascular surgery, Dr. Lee. Per patient report underwent repeat intervention with long stent placement to SFA 08/2023. Following stent placement had improvement in exertional calf/foot pain. Had repeat duplex 09/2023 that showed widely patent stent. More recently over the last few weeks has noted recurrence of foot pain, limiting walking to <1 block. Denies any rest pain. No new ulcers. Due to symptoms presented to ED today. Repeat arterial duplex showed occluded SFA stent with distal SFA disease and monophasic/diminished infrapopliteal flow. Specialty Data Specialty Data Angiogram 12/14/2023 1. Left lower extremity --100% occlusion of prior ostial to distal SFA stents. Two-vessel runoff to the foot (occluded PILING CUTTER). 2. Right lower extremity --widely patent iliacs. 30% diffuse PRINTING SPECIALIST disease 3. Successful atherectomy (rotarex), angioplasty (5 x 300mm Lutonix drug-eluting balloon) of SFA stent occlusion with placement of additional overlapping stent to distal SFA (5.5 x 60 mm Supera). Discharge Data Consultations 12/13/23 14:47 ED Decision to Admit Stat Procedures Performed Operation Date: 12/14/23 08:00 Actual Procedures p Cineradiography w/Routine Exam - Martin Mac MD s Angio Extremity Unilateral - Martin Mac MD s Fem Pop Stent Balloon Atherect - Martin Mac MD Hospital Course (1) PAD (peripheral artery disease): Occluded left SFA stent with [place] category 3 claudication Remote right SFA angioplasty Occluded bilateral PTAs Prior left subclavian stent 2. CAD post redo CABGstable, denies angina 3. HypertensionOn BB at home, elevated on admission; started on losartan 25mg 4. Dyslipidemiahigh intensity statin 5. AAA 3.2 cm with mural thrombus on most recent CT 01/2022, 6. Sick sinus syndrome post pacemaker. History SVT 7. Thrombocytopenia - chronic, 120s 8. UTIuncomplicated, started on ceftriaxone With progressive life-limiting claudication patient was admitted for observation and underwent repeat left lower extremity angiogram on 12/14/2023. She was found to have occluded SFA stents from ostium to distal segment. Had two-vessel below the knee runoff. Underwent successful endovascular intervention with atherectomy, drug-eluting balloon and new stent placement at distal edge of prior stents. Post procedure good angiographic result, no apparent complications. Was observed post procedure and noted improvement in leg symptoms with walking around room. No apparent groin complications. Discharged to home on hospital day 2 on DAPT with aspirin, clopidogrel (reluctant to take aspirin due to bruising). Also discharged on new losartan with elevated blood pressures on admission and 7-day course of Bactrim due to UTI. Will follow-up with vascular medicine in 2 weeks. Plan to transition to clopidogrel and PAD dose Xarelto. Will repeat noninvasive vascular testing at that time. She is potentially interested in switching specialist care to [facility]. Will arrange cardiac/EP care if still interested at that time. Discharge Instructions Home Medications clopidogrel 75 mg tablet 75 mg PO QAM 07/05/18 [History Confirmed 12/13/23] metoprolol succinate 50 mg tablet,extended release 24 hr 50 mg PO QAM 07/05/18 [History Confirmed 12/13/23] acetaminophen 500 mg tablet (Tylenol Extra Strength) 500 mg PO Q8 PRN Pain 09/07/19 [History Confirmed 12/13/23] albuterol sulfate 90 mcg/actuation aerosol inhaler 2 puff inhalation Q4 PRN Wheezing 01/26/22 [History Confirmed 12/13/23] cholecalciferol (vitamin D3) 50 mcg (2,000 unit) capsule 2,000 unit PO QAM 12/13/23 [History Confirmed 12/13/23] rosuvastatin 40 mg tablet 40 mg PO QAM 12/13/23 [History Confirmed 12/13/23] aspirin 81 mg tablet,delayed release 81 mg PO QAM #30 tabs 12/14/23 [Rx] losartan 25 mg tablet 25 mg PO QAM #30 tabs 12/14/23 [Rx] sulfamethoxazole 800 mg-trimethoprim 160 mg tablet (Bactrim DS) 1 tab PO BID 7 days #14 tabs 12/14/23 [Rx] Coding Level of Care Code 27856 IN/OBS DISCH 30 MIN/LESS Diagnoses PAD (peripheral artery disease) I73.9
[2023-12-15] MEDS ORDERED: RIVAROXABAN 2.5 MG TAB PO SCH (09:00)
--- OUTSIDE RECORDS SUMMARY | 2023-12-15 12:25 | External Medical Summary | Summary of Care ---
Author Name Unknown Organization [facility] Address [address] [place] [address] Phone [phone] Care Team Providers Care Electric Cutter Operator Name Role Phone William Rosario MD Primary Care Provider + Reason for Visit * Reason Onset Date Comments Advice 12/13/2023 Encounter Details Date Type Department Care Team (Late st Contact Info) Description 12/13/2023 Telephone Family Practice [facility] [address] [place] [id number] William Rosario MD [address] [facility] [place] [id number] Advice Allergies Active Allergy Reactions Criticality Noted [...] 75 MG Oral Tablet (pLAVix)Indications:A therosclerosis of [place] artery of both lower extremities with intermittent [...] Release 24 Hour (toPROL XL)Indications:Athero sclerosis of [place] artery of both lower extremities with intermittent [...] (COVID -19) 06/29/2021 Overview: 07/04 Atherosclerosis of [place] ar elie of both lower extremities with [...] artery disease) 08/21/2012 Overview: 08/25 Arterial US [facility] ER +mid sup fem artery narrowing Well adult exam 03/15/2011 Overview: 02/02 AAA 3.3 cm. Wagner 2y. 09/02 declines DEXA (hx hip frx) 08/05 CT chest [facility] 1 y f/u ordered. 10/04 CT stable. Wagner 18-24 mos. 02/[address]--stable 3.2 cm infrarenal AAA-ck yearly. 06/2021 CT abd [facility]. 3.3 cm infrarenal AAA (stable per report?). 2014 2.9cm. 09/29 POLST/DNR. Ok for intubation for short term only if quality possible. 09/28 PFTs WNL 02/25 restart statin. Need wagner. +stress w/overdue copays/old bills w/[facility] 08/25 [facility] CTA ABd no severe occlusion 06/26 [...] 07/06/2018 Thyroid nodule 06/02/2017 09/16/2017 Overview: 05/[address] [facility] [address] chest--notes 1.2cm nodule, 09/28 US--WNL. [...] encounter Miscellaneous Notes * Telephone Encounter - William Rosario MD - 12/13/2023 6:13 PM EDT Patient admitted. * Telephone Encounter - Kanika Serna LPN [...] states that she tried to call her renal case manager, Kelly but her VM was full Patient [...] get her daughter to take her to [facility] ER and if not then she will call for anambulance FYI to Global Sales Executive documented in this encounter Plan of Treatment Upcoming Encounters Date Type Department Care Team (Late st Contact Info) Description 12/28/2023 1:00 PM EDT Imaging Vascular Lab, [address] [place] [address] 12/28/2023 2:00 PM EDT Imaging Vascular Lab, [address] [place] [address] 01/04/2024 11:10 AM EDT Office Visit Vascular Surgery, [address] [place] [address] Fernandez Lee MD [address] [place] [address] 02/21/2024 10:00 AM EDT Nurse Only Ancillary [address] [id number] [facility], Nurse Annual Wellness [address] [place] [address] 05/07/2024 9:30 AM EST Office Visit Cardiology, [address] [place] [address] Michael Ace MD [address] [place] [address] 06/15/2024 12:20 PM EST Office Visit Family Practice [facility] [address] [facility] [place] [address] William Rosario MD [address] [facility] [place] [id number] Health Maintenance Due Date Last Done Comments DXA Scan 1940 Zoster Vaccines (2 of 3) 10/01/2014 08/06/2014 Influenza Vaccine (FLU shot) (#1) 2024 03/11/2020, 04/06/2019, 03/10/2018, Additional history exists Depression Monitoring 06/09/2024 06/09/2023 GFR 06/09/2024 06/09/2023, 12/2022, 02/11/2022, Additional history exists O2 ASSESSMENT COMPLETED IN PAST YEAR FOR COPD 08/28/2024 08/29/2023 Albumin/Creatinine Ratio 07/20/2025 07/20/2022 DTaP,Tdap,and Td Vaccines (2 - Td or Tdap) 03/18/2026 03/18/2016, 01/25/2007 Pneumococcal Vaccine: 65+ Years Completed 02/14/2015, 02/01/2014 Alpha-1 Antitrypsin Completed 07/20/2022, COVID-19 Vaccine Discontinued HPV (Gardasil) Vaccine Aged Out No lo nger eligible based on patient's age to complete this topic Hepatitis B Vaccine Aged Out No longe r eligible based on patient's age to complete this topic MENINGOCOCCAL (MENACTRA/MENVEO) Aged Out No longer eligible based on patient's age to complete this topic documented as of this encounter Medical Devices Implanted Type Area It Support Engineer Device Identifier Shelf Expiration Date Model / Serial / Lot Stent Innova [id number] - [id number] Implanted:Qty: 1 on 08/29/2023 by Fernandez Lee MD at OR [facility] Left: [facility] [employer] [id number] 02/10/2028 [id number] / / [id number] St[employer]ova [id number] - [id number] Implanted:Qty: 1 on 08/29/2023 by Fernandez Lee MD at OR [facility] Left: [facility] [employer] [id number] 02/10/2028 [id number] / / [id number] documented as of this encounter Advance Directives Documents on File Type Date Recorded Patient General Sales Manager Expl anation POLST 10/05/2018 POLST Healthcare Agents on File Name Relationship Healthcare Agent Relationshi p Communication Felicia [facility] Adult Child Health Care Power of Atto yee Care Teams Electric Cutter Operator Relationship Specialty Start Date End Date William Rosario MD [address] [place] [address] PCP - General Family Medicine 08/06/14 documented as of this encounter
== END 2023-12-14 20:22 | disposition home or self-care (01) ==
LOC: ED 10:21 → 2S 10:21
PROC: CLB.AEU (2023-12-14 08:00)